=== PATIENT | female | born 1960 | race Hispanic/Latino ===

== ENCOUNTER 2016-07-01 12:19 | Inpatient (IN) | payer OTHER ==
[2016-07-01] MEDS ORDERED: Lidocaine 1% Inj (20ml) INFIL ONE (12:38)
--- NOTE | 2016-07-01 12:43 | C.PDOC ---
History Of Present Illness 56 y/o female sent to the ED from outpatient radiology for large pneumothorax as seen on chest x-ray. Patient reports she has not been feeling well and has been short of breath for approx 3 weeks. She has history of cervical cancer with metastasis to lung. Patient denies fever, cough, falls/injuries, chest pain. Time Seen by Provider: 07/01/16 12:37 Chief Complaint (Nursing): Medical Clearance History Per: Patient History/Exam Limitations: no limitations Onset/Duration Of Symptoms: Days (21), Persistent Current Symptoms Are (Timing): Still Present Severity: Mild Past Medical History Reviewed: Historical Data, Nursing Documentation, Vital Signs Vital Signs: Last Vital Signs Temp 98.6 F 07/07/16 12:00 Pulse 79 07/07/16 13:02 Resp 18 07/07/16 13:02 BP 96/59 L 07/07/16 11:46 Pulse Ox 98 07/07/16 12:00 - Medical History PMH: Depression, Malignancy (metastatic cervical CA) Other Surgeries: Left Subclavian port insertion; 4 rounds of brachytherapy. - Boond Procedures DRAINAGE OF R PLEURAL CAV WITH DRAIN DEV, OPEN APPROACH (07/01/16) Family History: States: No Known Family Hx - Social History Hx Tobacco Use: Yes (light smoker) Hx Alcohol Use: No Hx Substance Use: No - Immunization History Hx Tetanus Toxoid Vaccination: No (unsure) Hx Influenza Vaccination: No Hx Pneumococcal Vaccination: No Review Of Systems Except As Marked, All Systems Reviewed And Found Negative. Constitutional: Positive for: Other ("not feeling well"). Negative for: Fever Cardiovascular: Negative for: Chest Pain, Palpitations Respiratory: Positive for: Shortness of Breath, SOB with Excertion. Negative for: Cough Gastrointestinal: Negative for: Nausea, Vomiting, Abdominal Pain, Diarrhea Physical Exam - Physical Exam Appears: Non-toxic, No Acute Distress, Other (cachectic; comfortable, speaking in full sentences) Skin: Normal Color, Warm, Dry Head: Normacephalic Oral Mucosa: Moist Neck: Normal Chest: Symmetrical, Other (portacath at left upper chest) Cardiovascular: Rhythm Regular Respiratory: Decreased Breath Sounds (right), No Accessory Muscle Use, No Rales , No Rhonchi, No Wheezing Gastrointestinal/Abdominal: Normal Exam, Bowel Sounds, Soft, No Tenderness Extremity: Normal ROM, No Swelling Extremity: Bilateral: Normal Color And Temperature Neurological/Psych: Oriented x3 ED Course And Treatment - Laboratory Results Result Diagrams: 07/07/16 06:15 07/07/16 06:15 ECG: Interpreted By Me, Viewed By Me (NSR 68 bpm, normal axis, no acute ST/T wave changes) ECG Interpretation: Normal O2 Sat by Pulse Oximetry: 98 (ra) Pulse Ox Interpretation: Normal - Other Rad CXR X-Ray: Viewed By Me, Read By Radiologist Interpretation: Accession No. : [id number]. Patient Name / ID : LAURA MURILLO / [id number]. Exam Date : 07/01/2016 11:05:59 ( Approved ). Study Comment : Sex / Age : F / [id number]. Creator : Anthony Gaytan MD. Dictator : Anthony Gaytan MD. Welfare Director : Service Desk Team Lead : Anthony Gaytan MD. Approver2 : Report Date : 07/01/2016 12:14:32. My Comment : . HISTORY: COUGH. COMPARISON: 01/18/2014. TECHNIQUE: Chest PA and lateral. FINDINGS: LUNGS: There is a [id number] right pneumothorax. There is no left pneumothorax. There is no pulmonary infiltrate appreciated. There is opacity at the medial right lung base likely reflecting atelectasis. PLEURA: Right pneumothorax as above. No pleural effusion. CARDIOVASCULAR: Normal heart size. Left central venous infusion port. OSSEOUS STRUCTURES: No significant abnormalities. VISUALIZED UPPER ABDOMEN: Normal. OTHER FINDINGS: None. IMPRESSION: Moderate to large right pneumothorax. These findings were discussed by telephone with Dr. peggy Mendez at 12:10 p.m. on 07/01/2016. The patient is being escorted to the emergency room for further management. Progress Note: Blood work, EKG ordered and reviewed. Patient placed on 100% NRB. Chest tube inserted by surgical garment fitter with me at bedside. Once chest tube attached to suction, patient immeiately began to c/o SOB and POx dropped into 80s. Chest tube pulled back by resident and repeat CXR done, CT in place. Patient once again becomes SOB with attachment to suction. president & founder discused with Dr. Lira, and I spoke with pulm/final assembler Dr. Barger, who will come to evaluate patient at bedside. 6:10pm- Dr. Barger accepts patient for ICU admission due to dyspnea, desaturation when chest tube attached to vacuum. - Physician Consult Information Physician Contacted: Chata Lira Outcome Of Conversation: Discussed patient with Dr. Lira, she agrees that pigtail catheter would be preferable since this is a nontraumatic PTX and patient is not in acute respiratory distress. Will speak with surgery resident. Patient to be admitted under medicine with Dr. Lira on consult. Critical Care Time - Critical Care Note Total Time (in mins): 45 Documented critical care: time excludes all time spent performing seperately billable procedures. Disposition - Disposition Disposition: HOSPITALIZED Disposition Time: 14:28 Condition: STABLE - Clinical Impression Clinical Impression: Cervical cancer, Pneumothorax, Hypoxia - Scribe Statement The provider has reviewed the documentation as recorded by the Scribe (Kasia Stone) Provider Attestation: All medical record entries made by the Scribe were at my direction and personally dictated by me. I have reviewed the chart and agree that the record accurately reflects my personal performance of the history, physical exam, medical decision making, and the department course for this patient. I have also personally directed, reviewed, and agree with the discharge instructions and disposition.
[2016-07-01 14:40] LABS: BASO % 0.5 % (0.0-2.0); EOS # 0.3 K/uL (0.0-0.7); EOS % 3.8 % (0.0-4.0); HEMATOCRIT 41.8 % (34.0-47.0); LYMPH # 1.3 K/uL (1.0-4.3); LYMPH % 15.9 % (20.0-40.0); MEAN CORPUSCULAR HEMOGLOBIN 30.2 pg (27.0-31.0); MEAN CORPUSCULAR HGB CONC 32.5 g/dL (33.0-37.0); MEAN PLATELET VOLUME 8.4 fL (7.2-11.7); MONO # 0.5 K/uL (0.0-0.8); MONO % 6.2 % (0.0-10.0); RED CELL DISTRIBUTION WIDTH 15.8 % (11.5-14.5)
[2016-07-01 14:43] LABS: INR 1.1; MEAN CELL VOLUME 92.9 fL (81.0-99.0); WHITE BLOOD COUNT 8.4 K/uL (4.8-10.8)
[2016-07-01 14:57] LABS: CHLORIDE 100 mmol/L (98-107)
[2016-07-01 14:58] LABS: SODIUM 139 mmol/L (132-148)
[2016-07-01 15:00] LABS: ALB/GLOB RATIO 1.3 (1.0-2.1); AST/SGOT 31 U/L (14-36); BILIRUBIN,TOTAL 0.6 mg/dL (0.2-1.3); CARBON DIOXIDE 24 mmol/L (22-30); GFR AFRICAN-AMERICAN > 60; TOTAL PROTEIN 8.6 g/dL (6.3-8.3)
[2016-07-01 15:01] LABS: ALKALINE PHOSPHATASE 134 U/L (38-126); ALT/SGPT 34 U/L (9-52); BLOOD UREA NITROGEN 22 mg/dL (7-17); CALCIUM 9.8 mg/dl (8.6-10.4); GLUCOSE,RANDOM 110 mg/dL (65-105)
[2016-07-01 15:06] LABS: RBC URINE 10 /hpf (0-3); URINE BACTERIA MANY (<OCC); URINE BILIRUBIN NEGATIVE (NEGATIVE); URINE BLOOD 2+ (NEGATIVE); URINE COLOR Yellow (YELLOW); URINE GLUCOSE (UA) NORMAL (Normal); URINE KETONE NEGATIVE (NEGATIVE); URINE LEUKOCYTE ESTERASE 1+ Leu/uL (Negative); URINE PROTEIN 1+ mg/dL (NEGATIVE); URINE UROBILINOGEN NORMAL mg/dL (0.2-1.0); WBC URINE 22 /hpf (0-5)
[2016-07-01] MEDS ORDERED: Sodium Chloride 0.9% 1,000 ML ONE ×2 (15:23→15:27)
[2016-07-01] MEDS ORDERED: Apap-Butalbital-Caffeine 325-50-40mg Tab PO PRN (15:26)
[2016-07-01] MEDS ORDERED: Morphine 4 MG/ML VIAL ONE (15:27)
--- NOTE | 2016-07-01 15:36 | CP.PCM.HP ---
<Laxmi Davis - Last Filed: 07/01/16 16:40> History of Present Illness - History of Present Illness History of Present Illness: Internal medicine H & P for Hospitalist service- Laxmi Davis, PGY-1 Pt S & E at beside 56 yo F w/PMH sig for cervical CA s/p chemo/radiation with mets to lung currently on chemo-held x 1 mo for dental work admitted for pneumothorax of Right lung. Pt reports that 1 mo ago she went [facility] after high heel related Left hip injury w/diagnosis of L hip vs. pelvis fracture- pt waited 6 hrs in ED, states that prior to ED visit, she did not have cough, but afterwards noted on. Cough is non productive. Admits to SOB, DAVIDSON, chills, orthopnea, daily recurrent migraines, palpitations with exertion, occasional Left hip pain, Right lower midaxillary rib pain, weight loss due to chemo. Denies N/V/F, CP, abdominal pain, constipation, diarrhea, dysuria, uringary frequency, weakness, vision changes, sore throat, congestion, rhinorrhea, sinus congestion. PMH: Cervical cancer s/p Chemo/radiation w/mets to lungs currently on chemo- held x 1 mo due to dental work PSH: dental work, brachy radiation surgery for cervical tumor All: Denies SH: Admits to 5-10 cigarettes/day x 30 yrs, former occasional ETOH use- last drink 3 yrs ago, denies illicit drug use PMD: [facility] onc: [facility]: [facility] [place] on [address] Present on Admission - Present on Admission Any Indicators Present on Admission: No History of DVT/PE: No History of Uncontrolled Diabetes: No Urinary Catheter: No Decubitus Ulcer Present: No Review of Systems - Review of Systems All systems: reviewed and no additional remarkable complaints except - Constitutional Constitutional: Chills, Headache (daily migraines), Weight Loss. absent: Fever , Weakness - EENT Eyes: absent: Blurred Vision, Change in Vision Ears: absent: Dizziness Nose/Mouth/Throat: absent: Nasal Congestion, Sore Throat - Cardiovascular Cardiovascular: Dyspnea on Exertion, Palpitations (with exertion). absent: Chest Pain, Diaphoresis, Leg Edema, Lightheadedness - Respiratory Respiratory: Cough (non productive), Dyspnea on Exertion. absent: Wheezing, Chest Congestion - Gastrointestinal Gastrointestinal: absent: Abdominal Pain, Constipation, Diarrhea, Hematemesis, Hematochezia, Loose Stools, Melena, Nausea, Vomiting - Genitourinary Genitourinary: absent: Difficulty Urinating, Dysuria, Hematuria - Musculoskeletal Musculoskeletal: absent: Neck Pain, Numbness, Tingling - Integumentary Integumentary: absent: Skin Ulcer - Neurological Neurological: Headaches. absent: Dizziness, Tingling, Weakness - Psychiatric Psychiatric: Anxiety Past Patient History - Infectious Disease Hx of Infectious Diseases: None - Past Social History Smoking Status: Light Smoker < 10 Cigarettes Daily - PULMONARY Hx Lung Cancer: Yes - HEMATOLOGICAL/ONCOLOGICAL Hx Cancer: Yes (Cervical) - PSYCHIATRIC Hx Depression: Yes Hx Substance Use: No - SURGICAL HISTORY Other/Comment: Left Subclavian port insertion; 4 rounds of brachytherapy. - ANESTHESIA Hx Anesthesia: Yes Hx Anesthesia Reactions: No Hx Malignant Hyperthermia: No Meds Allergies/Adverse Reactions: Allergies Allergy/AdvReac Type Severity Reaction Status Date / Time No Known Allergies Allergy Verified 07/01/16 12:42 Physical Exam - Constitutional Appears: Non-toxic, No Acute Distress, Cachectic - Head Exam Head Exam: ATRAUMATIC, NORMAL INSPECTION, NORMOCEPHALIC - Eye Exam Eye Exam: EOMI, Normal appearance, PERRL Pupil Exam: NORMAL ACCOMODATION, PERRL - ENT Exam ENT Exam: Mucous Membranes Moist, Normal Exam - Neck Exam Neck exam: Positive for: Full Rom, Normal Inspection. Negative for: Lymphadenopathy, Tenderness - Respiratory Exam Respiratory Exam: Decreased Breath Sounds (over right lung maxwell), NORMAL BREATHING PATTERN. absent: Accessory Muscle Use, Rales, Rhonchi, Wheezes, Respiratory Distress, Stridor - Cardiovascular Exam Cardiovascular Exam: REGULAR RHYTHM, +S1, +S2 - GI/Abdominal Exam GI & Abdominal Exam: Normal Bowel Sounds, Soft. absent: Distended, Firm, Guarding, Hernia, Rebound, Rigid, Tenderness - Extremities Exam Extremities exam: Positive for: normal capillary refill, normal inspection. Negative for: pedal edema, tenderness - Back Exam Back exam: FULL ROM, NORMAL INSPECTION. absent: paraspinal tenderness, tenderness - Neurological Exam Neurological exam: Alert, CN II-XII Intact, Oriented x3 - Psychiatric Exam Psychiatric exam: Normal Affect, Normal Mood - Skin Skin Exam: Dry, Intact, Normal Color, Warm Results - Vital Signs Recent Vital Signs: Last Vital Signs Temp 97.5 F L 07/01/16 12:22 Pulse 69 07/01/16 14:38 Resp 20 07/01/16 14:38 BP 125/72 07/01/16 14:38 Pulse Ox 95 07/01/16 14:38 - Labs Result Diagrams: 07/01/16 14:22 07/01/16 14:22 Labs: Laboratory Results - last 24 hr 07/01/16 07/01/16 14:29 14:43 Urine Color Yellow Urine Clarity Hazy Urine pH 5.0 Ur Specific [place] 1.011 Urine Protein 1+ H Urine Glucose (UA) Normal Urine Ketones Negative Urine Blood 2+ H Urine Nitrate Positive H Urine Bilirubin Negative Urine Urobilinogen Normal Ur Leukocyte Esterase 1+ H Urine WBC (Auto) 22 H Urine RBC (Auto) 10 H Ur Squamous Epith Cells 1 Urine Bacteria Many H Urine HCG, Qual Negative Blood Type A POSITIVE Antibody Screen Negative Assessment & Plan - Assessment and Plan (Free Text) Assessment: Pneumothorax CXR w/findings of Moderate to large right pneumothorax. Surgery consulted-Lira- for pigtail placement, tube mgmt Motrin PRN mild pain Morphine 1mg PRN mod pain Pulm consulted- Charbel FU CXR in AM FU KATELIN Q6H x 3 FU Echo UTI U/A pos for 1+ LE, nitrates, 22 WBCs, 10 RBCs Rocephin Monitor Anxiety Re-start home med: Xanax 0.5mg HS Daily migraine headaches Re-start home med: Fioricet 2-4 tabs daily PRN Nicotine abuse Nicotine patch Cervical cancer s/p chemo/radiation with mets to Lungs currently on chemo- held x 1 mo due to dental work Marinol Supplements FU CT chest/ab/pelvis GI/DVT ppx Pepcid Lovenox SCDs Ambulate Dispo Admit to tele VS Q4H Regular diet Pain mgmt OOBTC, activity ad dave, ambulate DW attending - Date & Time Date: 07/01/16 Time: 15:34 <Anthony Noel - Last Filed: 07/01/16 17:35> Results - Vital Signs Recent Vital Signs: Last Vital Signs Temp 97.5 F L 07/01/16 12:22 Pulse 70 07/01/16 17:23 Resp 20 04/05/17 17:23 BP 114/63 07/01/16 17:23 Pulse Ox 94 L 07/01/16 17:23 - Labs Result Diagrams: 07/01/16 14:22 07/01/16 14:22 Labs: Laboratory Results - last 24 hr 07/01/16 07/01/16 14:29 14:43 Urine Color Yellow Urine Clarity Hazy Urine pH 5.0 Ur Specific [place] 1.011 Urine Protein 1+ H Urine Glucose (UA) Normal Urine Ketones Negative Urine Blood 2+ H Urine Nitrate Positive H Urine Bilirubin Negative Urine Urobilinogen Normal Ur Leukocyte Esterase 1+ H Urine WBC (Auto) 22 H Urine RBC (Auto) 10 H Ur Squamous Epith Cells 1 Urine Bacteria Many H Urine HCG, Qual Negative Blood Type A POSITIVE Antibody Screen Negative Attending/Attestation - Attestation I have personally seen and examined this patient.: Yes I have fully participated in the care of the patient.: Yes I have reviewed all pertinent clinical information: Yes Notes (Text): 07/01/16 17:29 Medical Attending: Patient was seen and examined by me. Agree with the above note by the resident. The patient was seen and examined in the ER - she had just had a pigtail cather placed to relieve the pneumothorax. When we saw her the cather was being adjusted again. As mentioned above there is a history of cervical cancer with spread to the lungs. She also had a recent fall injuring hip as well. Will check serial troponins, repeat CXRAYs, as well as get a 2decho to assess for right heart strain. Also CT of the chest, abdomen and pelvis. Patient asked that no contrast be given Will have to see how the follow up chest XRAYs do. When we examined her she did not have JVD on exam, but considering how large the pneumothorax is will need echo. Also did not have tracheal deviation. She was not tacycardic and the blood pressure was stable as well thank you Anthony Noel
--- NOTE | 2016-07-01 16:25 | RAD ---
HISTORY: S/P CHEST TUBE COMPARISON: No prior. FINDINGS: LUNGS: 2.2 cm nodule at medial right lung base. Consistent with history of known pulmonary neoplasm. Atelectasis at right base. PLEURA: Minimal decrease in extent of right pneumothorax when compared to earlier examination of the same date. New right chest tube extends across the midline towards the left side. Unlikely to reflect tension pneumothorax, status post chest tube insertion. Uncertain significance. No left pneumothorax. CARDIOVASCULAR: Left central venous infusion port. 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 . VISUALIZED UPPER ABDOMEN: Normal. OTHER FINDINGS: None. IMPRESSION: Minimal decrease in extent of right pneumothorax status post insertion of right chest tube. Chest tube crosses the midline towards the left side. Uncertain significance. 2.2 cm nodule at medial right lung base.
[2016-07-01] MEDS ORDERED: Sodium Chloride 0.9% 1,000 ML IV ONE ×2 (17:10→18:49)
[2016-07-01] MEDS: Enoxaparin 30 mg Syringe SC SCH (19:20)
[2016-07-01] MEDS ORDERED: Acetaminophen IV 1,000 MG in Premixed IV 1 EA IV ONE (20:20)
--- NOTE | 2016-07-01 23:55 | CP.PCM.CON ---
History of Present Illness - History of Present Illness History of Present Illness: Gen Surg Consult: Dr Lira 56F w/PMH of cervical cancer s/p chemo/radiation with metastasis to lung. Pt reports she is receiving chemotherapy once a month. Patient was sent over to ED from outpatient radiology after a large right pneumothorax was noted on X-ray. Pt reports that she first experienced chest discomfort about 3 weeks ago. She states she felt a strange sensation in her chest and she noticed her breathing was not the same. However, patient states the pain never got worse so she felt it would gradually go away. Patient currently reports pressure-like sensation in her chest, as well as pain her ribs. PMH: as stated above PSH: excision cervical tumor All: NKDA SH: Former smoker for about ~30yrs Review of Systems - Review of Systems Review of Systems: 12 pt ROS reviewed, unremarkable, except as stated in HPI Past Patient History - Infectious Disease Hx of Infectious Diseases: None - Past Social History Smoking Status: Light Smoker < 10 Cigarettes Daily - PULMONARY Hx Lung Cancer: Yes - HEMATOLOGICAL/ONCOLOGICAL Hx Cancer: Yes (Cervical) - PSYCHIATRIC Hx Depression: Yes Hx Substance Use: No - SURGICAL HISTORY Other/Comment: Left Subclavian port insertion; 4 rounds of brachytherapy. - ANESTHESIA Hx Anesthesia: Yes Hx Anesthesia Reactions: No Hx Malignant Hyperthermia: No Meds Allergies/Adverse Reactions: Allergies Allergy/AdvReac Type Severity Reaction Status Date / Time No Known Allergies Allergy Verified 07/01/16 12:42 - Medications Medications: Current Medications Acetaminophen/Butalbital/Caffeine (Fioricet) 2 tab PO Q12H PRN PRN Reason: Headache Alprazolam (Xanax) 0.5 mg PO HS PRN PRN Reason: Anxiety Dronabinol (Marinol) 2.5 mg PO BID [facility] Last Admin: 07/01/16 19:30 Dose: 2.5 mg Enoxaparin Sodium (Lovenox) 30 mg SC DAILY [facility] Last Admin: 07/01/16 19:20 Dose: 30 mg Famotidine (Pepcid) 20 mg PO BID [facility] Last Admin: 07/01/16 19:20 Dose: 20 mg Ceftriaxone Sodium 1 gm/ (Sodium Chloride) 100 mls @ 100 mls/hr IVPB Q24H [facility] Last Admin: 07/01/16 17:32 Dose: 100 mls/hr Ibuprofen (Motrin Tab) 400 mg PO Q6 PRN PRN Reason: Pain, Mild (1-3) Morphine Sulfate (Morphine) 1 mg IVP Q4 PRN PRN Reason: Pain, moderate (4-7) Nicotine (Nicoderm Cq) 1 patch TD DAILY SOFIA Ondansetron HCl (Zofran Inj) 4 mg IVP Q6 PRN PRN Reason: Nausea/Vomiting Physical Exam - Constitutional Appears: Cachectic, Chronically Ill - Head Exam Head Exam: NORMOCEPHALIC - Eye Exam Eye Exam: Normal appearance - ENT Exam ENT Exam: Mucous Membranes Moist - Respiratory Exam Respiratory Exam: NORMAL BREATHING PATTERN. absent: Accessory Muscle Use - Cardiovascular Exam Cardiovascular Exam: +S1, +S2 - GI/Abdominal Exam GI & Abdominal Exam: Soft. absent: Distended, Firm, Guarding - Neurological Exam Neurological exam: Alert, Oriented x3 - Psychiatric Exam Psychiatric exam: Normal Mood - Skin Skin Exam: Intact, Normal Color, Warm Results - Vital Signs Recent Vital Signs: Last Vital Signs Temp 97.9 F 07/01/16 18:52 Pulse 71 07/01/16 18:50 Resp 30 H 07/01/16 18:50 BP 95/52 L 07/01/16 18:50 Pulse Ox 93 L 07/01/16 18:50 - Labs Result Diagrams: 07/01/16 14:22 07/01/16 14:22 Labs: Laboratory Results - last 24 hr 07/01/16 07/01/16 07/01/16 14:29 14:43 18:49 Total Creatine Kinase 54 CK-MB (Mass) 0.57 Troponin I, Quant < 0.0120 Urine Color Yellow Urine Clarity Hazy Urine pH 5.0 Ur Specific [place] 1.011 Urine Protein 1+ H Urine Glucose (UA) Normal Urine Ketones Negative Urine Blood 2+ H Urine Nitrate Positive H Urine Bilirubin Negative Urine Urobilinogen Normal Ur Leukocyte Esterase 1+ H Urine WBC (Auto) 22 H Urine RBC (Auto) 10 H Ur Squamous Epith Cells 1 Urine Bacteria Many H Urine HCG, Qual Negative Blood Type A POSITIVE Antibody Screen Negative Assessment & Plan - Assessment and Plan (Free Text) Assessment: 56 F w/ right sided pneumothorax -F/u CXR -F/u CT chest -CT to waterseal -Monitor vitals -analgesics -F/u AM labs -D/w Dr. Lira Procedures - Chest Tube Chest Tube Location: Mid-Axillary Right Size of Tube (cm): 20 Chest Tube Procedure: Chlorhexidine Tube Sutured to Skin: Yes Sterile Dressing Applied: Yes Anesthesia: Lidocaine 1% Incision Made With: #11 blade Post Procedure: sutured to skin, sterile dressing applied Ram of Air [place]: Yes Tube Drainage: none Post Procedure CXR?: Yes Patient Tolerated Procedure: Yes Complications: tube needs to be repositioned Progress: Patient kept having desaturation episodes any time chest tube was placed on wall suction. Decision was made to leave chest tube to waterseal. Patient reported feeling better once on waterseal and vital signs stabilized.
[2016-07-02] MEDS: Oxycodone/Acetaminophen 5/325 mg Tab PO PRN ×4 (04:19→20:17)
[2016-07-02 06:45] LABS: BASO % 0.4 % (0.0-2.0); EOS % 0.4 % (0.0-4.0); HEMATOCRIT 36.4 % (34.0-47.0); LYMPH # 1.3 K/uL (1.0-4.3); LYMPH % 12.2 % (20.0-40.0); MEAN CELL VOLUME 92.4 fL (81.0-99.0); MEAN CORPUSCULAR HEMOGLOBIN 30.2 pg (27.0-31.0); MEAN CORPUSCULAR HGB CONC 32.7 g/dL (33.0-37.0); MEAN PLATELET VOLUME 8.5 fL (7.2-11.7); MONO # 0.5 K/uL (0.0-0.8); MONO % 4.8 % (0.0-10.0); NRBC % 0.1 % (0.0-2.0)
[2016-07-02 07:05] LABS: CHLORIDE 104 mmol/L (98-107); SODIUM 137 mmol/L (132-148)
[2016-07-02 07:06] LABS: POTASSIUM 4.5 mmol/L (3.6-5.2)
[2016-07-02 07:07] LABS: GFR AFRICAN-AMERICAN > 60
[2016-07-02 07:08] LABS: ALB/GLOB RATIO 1.2 (1.0-2.1); ALKALINE PHOSPHATASE 113 U/L (38-126); ALT/SGPT 24 U/L (9-52); AST/SGOT 21 U/L (14-36); BILIRUBIN,TOTAL 0.8 mg/dL (0.2-1.3); BLOOD UREA NITROGEN 17 mg/dL (7-17); CARBON DIOXIDE 19 mmol/L (22-30); GLUCOSE,RANDOM 99 mg/dL (65-105); TOTAL PROTEIN 7.5 g/dL (6.3-8.3)
[2016-07-02 07:09] LABS: CALCIUM 8.8 mg/dl (8.6-10.4)
--- NOTE | 2016-07-02 08:28 | CP.CCUPN ---
CCU Subjective - Physician Review Subjective (Free Text): 07/02/16 13:48 Pt seen and examined in no acute distress with no otherwise additional cute events overnight. Patient remains hemodynamically stable. She admits too pain at the site of the chest tube insertion. Patient otherwise denies subjective fevers or chills, headaches, palpitations, paresthesias, shortness of breath, nausea, vomiting or diarrhea at this time. CCU Objective - Vital Signs / Intake & Output Vital Signs (Last 4 hours): Vital Signs Pulse Resp BP Pulse Ox 07/02/16 08:00 58 L 14 96 07/02/16 07:09 51 L 15 123/71 100 07/02/16 07:00 63 15 95 07/02/16 06:31 56 L 15 97 07/02/16 06:09 60 23 130/64 94 L 07/02/16 06:00 55 L 14 95 07/02/16 05:52 52 L 14 95 07/02/16 05:09 54 L 20 126/73 94 L 07/02/16 05:00 53 L 19 126/73 94 L Intake and Output (Last 8hrs): Intake & Output 07/01/16 07/02/16 07/02/16 22:59 06:59 14:59 Intake Total 1310 0 Output Total 550 400 Balance 760 -400 Weight 99 lb Intake: Intake, IV Amount 1100 Left Antecubital 1100 Oral 210 0 Output: Chest Tube Drainage 0 0 Right Upper Mid-Axillary 0 0 Chest Urine 550 400 Urine, Voided 550 400 Stool 0 0 - Physical Exam Physical Exam Limitations: Positive for: Other (cachectic) Head: Positive for: Atraumatic, Normocephalic Pupils: Positive for: PERRL Extroacular Muscles: Positive for: EOMI Conjunctiva: Positive for: Normal Mouth: Positive for: Moist Mucous Membranes Neck: Positive for: Normal Range of Motion Respiratory/Chest: Positive for: Good Air Exchange, Other (chest tube in place- connected to waterseal) Cardiovascular: Positive for: Normal S1, S2 Abdomen: Negative for: Tenderness, Distention Upper Extremity: Positive for: Normal Inspection Lower Extremity: Positive for: Normal Inspection Neurological: Positive for: CN II-XII Intact, Speech Normal Skin: Positive for: Warm, Dry Psychiatric: Positive for: Alert, Oriented x 3, Normal Insight, Normal Concentration - Medications Active Medications: Active Medications Generic Name Dose Route Start Last Admin Trade Name Freq PRN Reason Stop Dose Admin Acetaminophen/Butalbital/Caffeine 2 tab 07/01/16 15:26 07/02/16 04:38 Fioricet PO 2 tab Q12H PRN Administration Headache Alprazolam 0.5 mg 07/01/16 15:26 Xanax PO HS PRN Anxiety Dronabinol 2.5 mg 07/01/16 18:00 07/01/16 19:30 Marinol PO 2.5 mg BID [facility] Administration Enoxaparin Sodium 30 mg 07/01/16 16:30 07/01/16 19:20 Lovenox SC 30 mg DAILY [facility] Administration Famotidine 20 mg 07/01/16 18:00 07/01/16 19:20 Pepcid PO 20 mg BID [facility] Administration Ceftriaxone Sodium 1 gm/ 100 mls @ 100 mls/hr 07/01/16 17:30 07/01/16 17:32 Sodium Chloride IVPB 100 mls/hr Q24H SO[facility] Administration Ibuprofen 400 mg 07/01/16 15:29 Motrin Tab PO Q6 PRN Pain, Mild (1-3) Morphine Sulfate 1 mg 07/01/16 16:28 07/02/16 00:00 Morphine IVP 1 mg Q4 PRN Administration Pain, moderate (4-7) Nicotine 1 patch 07/02/16 10:00 Nicoderm Cq TD DAILY [facility] Ondansetron HCl 4 mg 07/01/16 15:29 Zofran Inj IVP Q6 PRN Nausea/Vomiting Oxycodone/Acetaminophen 1 tab 07/02/16 01:45 07/02/16 04:19 Percocet 5/325 Mg Tab PO 07/05/16 01:46 1 tab Q4 PRN Administration - Patient Studies Lab Studies: Lab Studies 07/02/16 07/01/16 07/01/16 Range/Units 06:38 18:49 14:43 WBC 11.0 H (4.8-10.8) K/uL RBC 3.94 (3.80-5.20) Mil/uL Hgb 11.9 (11.0-16.0) g/dL Hct 36.4 (34.0-47.0) % MCV 92.4 (81.0-99.0) fL MCH 30.2 (27.0-31.0) pg MCHC 32.7 L (33.0-37.0) g/dL RDW 16.0 H (11.5-14.5) % Plt Count 304 (130-400) K/uL MPV 8.5 (7.2-11.7) fL Neut % (Auto) 82.2 H (50.0-75.0) % Lymph % (Auto) 12.2 L (20.0-40.0) % [place] % (Auto) 4.8 (0.0-10.0) % Eos % (Auto) 0.4 (0.0-4.0) % Baso % (Auto) 0.4 (0.0-2.0) % Neut # 9.1 H (1.8-7.0) K/uL Lymph # 1.3 (1.0-4.3) K/uL [place] # 0.5 (0.0-0.8) K/uL Eos # 0.0 (0.0-0.7) K/uL Baso # 0.0 (0.0-0.2) K/uL Sodium 137 (132-148) mmol/L Potassium 4.5 (3.6-5.2) mmol/L Chloride 104 (98-107) mmol/L Carbon Dioxide 19 L (22-30) mmol/L Anion Gap 19 (10-20) BUN 17 (7-17) mg/dL Creatinine 0.8 (0.7-1.2) MG/DL Est GFR ( Amer) > 60 Est GFR (Non-Af Amer) > 60 Random Glucose 99 (65-105) mg/dL Calcium 8.8 (8.6-10.4) mg/dl Total Bilirubin 0.8 (0.2-1.3) mg/dL AST 21 (14-36) U/L ALT 24 (9-52) U/L Alkaline Phosphatase 113 (38-126) U/L Total Creatine Kinase 54 (30-135) U/L CK-MB (Mass) 0.57 (0.0-3.38) ng/mL Troponin I, Quant < 0.0120 (0.00-0.120) ng/mL Total Protein 7.5 (6.3-8.3) g/dL Albumin 4.1 (3.5-5.0) g/dL Globulin 3.3 (2.2-3.9) gm/dL Albumin/Globulin Ratio 1.2 (1.0-2.1) Urine Color Yellow (YELLOW) Urine Clarity Hazy (Clear) Urine pH 5.0 (5.0-8.0) Ur Specific [place] 1.011 (1.003-1.030) Urine Protein 1+ H (NEGATIVE) mg/dL Urine Glucose (UA) Normal (Normal) mg/dL Urine Ketones Negative (NEGATIVE) mg/dL Urine Blood 2+ H (NEGATIVE) Urine Nitrate Positive H (NEGATIVE) Urine Bilirubin Negative (NEGATIVE) Urine Urobilinogen Normal (0.2-1.0) mg/dL Ur Leukocyte Esterase 1+ H (Negative) [place]/uL Urine WBC (Auto) 22 H (0-5) /hpf Urine RBC (Auto) 10 H (0-3) /hpf Ur Squamous Epith Cells 1 (0-5) /hpf Urine Bacteria Many H (<OCC) Urine HCG, Qual Negative (NEGATIVE) Blood Type Antibody Screen 07/01/16 Range/Units 14:29 WBC (4.8-10.8) K/uL RBC (3.80-5.20) Mil/uL Hgb (11.0-16.0) g/dL Hct (34.0-47.0) % MCV (81.0-99.0) fL MCH (27.0-31.0) pg MCHC (33.0-37.0) g/dL RDW (11.5-14.5) % Plt Count (130-400) K/uL MPV (7.2-11.7) fL Neut % (Auto) (50.0-75.0) % Lymph % (Auto) (20.0-40.0) % [place] % (Auto) (0.0-10.0) % Eos % (Auto) (0.0-4.0) % Baso % (Auto) (0.0-2.0) % Neut # (1.8-7.0) K/uL Lymph # (1.0-4.3) K/uL [place] # (0.0-0.8) K/uL Eos # (0.0-0.7) K/uL Baso # (0.0-0.2) K/uL Sodium (132-148) mmol/L Potassium (3.6-5.2) mmol/L Chloride (98-107) mmol/L Carbon Dioxide (22-30) mmol/L Anion Gap (10-20) BUN (7-17) mg/dL Creatinine (0.7-1.2) MG/DL Est GFR ( Amer) Est GFR (Non-Af Amer) Random Glucose (65-105) mg/dL Calcium (8.6-10.4) mg/dl Total Bilirubin (0.2-1.3) mg/dL AST (14-36) U/L ALT (9-52) U/L Alkaline Phosphatase (38-126) U/L Total Creatine Kinase (30-135) U/L CK-MB (Mass) (0.0-3.38) ng/mL Troponin I, Quant (0.00-0.120) ng/mL Total Protein (6.3-8.3) g/dL Albumin (3.5-5.0) g/dL Globulin (2.2-3.9) gm/dL Albumin/Globulin Ratio (1.0-2.1) Urine Color (YELLOW) Urine Clarity (Clear) Urine pH (5.0-8.0) Ur Specific [place] (1.003-1.030) Urine Protein (NEGATIVE) mg/dL Urine Glucose (UA) (Normal) mg/dL Urine Ketones (NEGATIVE) mg/dL Urine Blood (NEGATIVE) Urine Nitrate (NEGATIVE) Urine Bilirubin (NEGATIVE) Urine Urobilinogen (0.2-1.0) mg/dL Ur Leukocyte Esterase (Negative) [place]/uL Urine WBC (Auto) (0-5) /hpf Urine RBC (Auto) (0-3) /hpf Ur Squamous Epith Cells (0-5) /hpf Urine Bacteria (<OCC) Urine HCG, Qual (NEGATIVE) Blood Type A POSITIVE Antibody Screen Negative Laboratory Results - last 24 hr 07/01/16 07/01/16 07/01/16 14:29 14:43 18:49 WBC RBC Hgb Hct MCV MCH MCHC RDW Plt Count MPV Neut % (Auto) Lymph % (Auto) [place] % (Auto) Eos % (Auto) Baso % (Auto) Neut # Lymph # [place] # Eos # Baso # Sodium Potassium Chloride Carbon Dioxide Anion Gap BUN Creatinine Est GFR ( Amer) Est GFR (Non-Af Amer) Random Glucose Calcium Total Bilirubin AST ALT Alkaline Phosphatase Total Creatine Kinase 54 CK-MB (Mass) 0.57 Troponin I, Quant < 0.0120 Total Protein Albumin Globulin Albumin/Globulin Ratio Urine Color Yellow Urine Clarity Hazy Urine pH 5.0 Ur Specific [place] 1.011 Urine Protein 1+ H Urine Glucose (UA) Normal Urine Ketones Negative Urine Blood 2+ H Urine Nitrate Positive H Urine Bilirubin Negative Urine Urobilinogen Normal Ur Leukocyte Esterase 1+ H Urine WBC (Auto) 22 H Urine RBC (Auto) 10 H Ur Squamous Epith Cells 1 Urine Bacteria Many H Urine HCG, Qual Negative Blood Type A POSITIVE Antibody Screen Negative 07/02/16 06:38 WBC 11.0 H RBC 3.94 Hgb 11.9 Hct 36.4 MCV 92.4 MCH 30.2 MCHC 32.7 L RDW 16.0 H Plt Count 304 MPV 8.5 Neut % (Auto) 82.2 H Lymph % (Auto) 12.2 L [place] % (Auto) 4.8 Eos % (Auto) 0.4 Baso % (Auto) 0.4 Neut # 9.1 H Lymph # 1.3 [place] # 0.5 Eos # 0.0 Baso # 0.0 Sodium 137 Potassium 4.5 Chloride 104 Carbon Dioxide 19 L Anion Gap 19 BUN 17 Creatinine 0.8 Est GFR ( Amer) > 60 Est GFR (Non-Af Amer) > 60 Random Glucose 99 Calcium 8.8 Total Bilirubin 0.8 AST 21 ALT 24 Alkaline Phosphatase 113 Total Creatine Kinase CK-MB (Mass) Troponin I, Quant Total Protein 7.5 Albumin 4.1 Globulin 3.3 Albumin/Globulin Ratio 1.2 Urine Color Urine Clarity Urine pH Ur Specific [place] Urine Protein Urine Glucose (UA) Urine Ketones Urine Blood Urine Nitrate Urine Bilirubin Urine Urobilinogen Ur Leukocyte Esterase Urine WBC (Auto) Urine RBC (Auto) Ur Squamous Epith Cells Urine Bacteria Urine HCG, Qual Blood Type Antibody Screen Review of Systems - Review of Systems Review of Systems: see subjective Critical Care Progress Note - Nutrition Nutrition: Nutrition Category Date Time Status Regular Diet [DIET] Diets 07/01/16 Dinner Active Assessment/Plan - Assessment and Plan (Free Text) Assessment: 48 year old female with PMHX significant to cervical cancer with mets to lungs presents for critical care monitoring after discovery of pneumothorax on imaging. Patient s/p chest tube insertion 07/01/16. Plan: Neuro: aao x3 in nad Xanax- anti anxiety Cardio: normotensive at this time Cont to monitor F/U Echo KATELIN 1-2 negative Pulm: Chest Tube in place to waterseal. Earlier attempts to turn on suction resulted in hemodynamic instability and thus kept on waterseal. CXR- noted improvement in lung this AM s/p chest tube placement Surgery ( Dr. Lira) on board Incentive spirometry GI: Dronabinol for anti emetic effects; may also stimulate appetite Zofran Regular diet HemeOnc: Cervical cancer with lung mets Dronabinol Pain control management Nephro/: Monitor ins and outs GFR WNL ID: [id number] on Rocephin Prophylaxis: GI: pepcid DVT: SCDs, Lovenox
--- NOTE | 2016-07-02 10:25 | RAD ---
HISTORY: chest tube adjustment COMPARISON: 07/01/2016 FINDINGS: LUNGS: Persistent moderate right pneumothorax. Chest tubes have been repositioned without significant change in pneumothorax size. 2.2 centimeter nodule noted at the medial right lung base consistent with known history of pulmonary neoplasm. Chronic interstitial lung markings. Left chest wall port stable position. PLEURA: As above. CARDIOVASCULAR: Normal. OSSEOUS STRUCTURES: Stable sclerotic focus in the proximal right humerus. VISUALIZED UPPER ABDOMEN: Grossly preserved. OTHER FINDINGS: None. IMPRESSION: No significant interval change in moderate right pneumothorax. Persistent pulmonary mass in the medial right lower lung zone.
[2016-07-02] MEDS: Enoxaparin 30 mg Syringe SC SCH (10:29)
--- NOTE | 2016-07-02 10:42 | RAD ---
PROCEDURE: CHEST RADIOGRAPH, 1 VIEW HISTORY: S/P CHEST TUBE PTX COMPARISON: 07/01/2016 FINDINGS: LUNGS: Interval improvement with small right apical pneumothorax. Confluent opacification in the right mid and lower lung zone with known mass in the medial right lower lung zone. Diffuse increased interstitial lung markings. Patchy bibasilar airspace markings. Right chest tube with tip projecting to the right lung apex. Left chest wall port stable position. PLEURA: As above. CARDIOVASCULAR: Normal. OSSEOUS STRUCTURES: Stable sclerotic focus in the proximal right humerus. VISUALIZED UPPER ABDOMEN: Normal. OTHER FINDINGS: None. IMPRESSION: Interval improvement with small right apical pneumothorax. Confluent opacification in the right mid and lower lung zone with known mass in the medial right lower lung zone. Diffuse increased interstitial lung markings. Patchy bibasilar airspace markings. Right chest tube with tip projecting to the right lung apex. Left chest wall port stable position.
--- NOTE | 2016-07-02 11:55 | RAD ---
HISTORY: Pneumothorax eval COMPARISON: 07/02/2016 FINDINGS: LUNGS: Persistent tiny right apical pneumothorax with right chest tube in place. Persistent confluent opacities and or masses in the right midlung zone and medial right lower lung zone. Bibasilar breast and nipple shadows. Chronic interstitial lung markings. Left chest wall port stable position. PLEURA: No significant pleural effusion identified, no pneumothorax apparent. CARDIOVASCULAR: Normal. OSSEOUS STRUCTURES: Sclerotic density in the proximal right humerus. Multiple left rib fracture deformities. VISUALIZED UPPER ABDOMEN: Normal. OTHER FINDINGS: None. IMPRESSION: Persistent tiny right apical pneumothorax with right chest tube in place. Persistent confluent opacities and or masses in the right midlung zone and medial right lower lung zone. Bibasilar breast and nipple shadows. Chronic interstitial lung markings. Left chest wall port stable position.
--- NOTE | 2016-07-02 12:06 | CP.PCM.PN ---
Subjective - Date & Time of Evaluation Date of Evaluation: 07/02/16 Time of Evaluation: 09:40 - Subjective Subjective: Gen Surg: Dr. Lira Patient seen and examined. Reports feeling better this morning. Denies chest pain, palpitations, SOB. NAEO. Review of vitals is normal Objective - Vital Signs/Intake and Output Vital Signs (last 24 hours): Temp Pulse Resp BP Pulse Ox 98.4 F 58 L 20 130/52 L 98 07/02/16 12:00 07/02/16 12:00 07/02/16 12:00 07/02/16 12:00 07/02/16 12:00 Intake and Output: 07/02/16 07/02/16 06:59 18:59 Intake Total 1310 270 Output Total 950 400 Balance 360 -130 - Medications Medications: Current Medications Acetaminophen/Butalbital/Caffeine (Fioricet) 2 tab PO Q12H PRN PRN Reason: Headache Last Admin: 07/02/16 04:38 Dose: 2 tab Alprazolam (Xanax) 0.5 mg PO HS PRN PRN Reason: Anxiety Dronabinol (Marinol) 2.5 mg PO BID [facility] Last Admin: 07/02/16 10:28 Dose: 2.5 mg Enoxaparin Sodium (Lovenox) 30 mg SC DAILY [facility] Last Admin: 07/02/16 10:29 Dose: 30 mg Famotidine (Pepcid) 20 mg PO BID [facility] Last Admin: 07/02/16 10:28 Dose: 20 mg Ceftriaxone Sodium 1 gm/ (Sodium Chloride) 100 mls @ 100 mls/hr IVPB Q24H [facility] Last Admin: 07/01/16 17:32 Dose: 100 mls/hr Ibuprofen (Motrin Tab) 400 mg PO Q6 PRN PRN Reason: Pain, Mild (1-3) Morphine Sulfate (Morphine) 1 mg IVP Q4 PRN PRN Reason: Pain, moderate (4-7) Last Admin: 07/02/16 11:48 Dose: 1 mg Nicotine (Nicoderm Cq) 1 patch TD DAILY [facility] Last Admin: 07/02/16 10:28 Dose: 1 patch Ondansetron HCl (Zofran Inj) 4 mg IVP Q6 PRN PRN Reason: Nausea/Vomiting Oxycodone/Acetaminophen (Percocet 5/325 Mg Tab) 1 tab PO Q4 PRN Stop: 07/05/16 01:46 Last Admin: 07/02/16 08:43 Dose: 1 tab Pneumococcal Polyvalent Vaccine (Pneumovax 23 Vaccine) 0.5 ml IM .ONCE ONE Stop: 07/04/16 10:01 - Labs Labs: 07/02/16 06:38 07/02/16 06:38 PT 12.2 SECONDS (9.7-12.2) 07/01/16 14:22 INR 1.1 07/01/16 14:22 APTT 32 SECONDS (21-34) 07/01/16 14:22 - Constitutional Appears: No Acute Distress, Cachectic, Chronically Ill - Head Exam Head Exam: NORMOCEPHALIC - Eye Exam Eye Exam: Normal appearance - ENT Exam ENT Exam: Mucous Membranes Moist - Respiratory Exam Respiratory Exam: NORMAL BREATHING PATTERN. absent: Accessory Muscle Use - Cardiovascular Exam Cardiovascular Exam: +S1, +S2. absent: Tachycardia - GI/Abdominal Exam GI & Abdominal Exam: Soft - Neurological Exam Neurological Exam: Alert, Awake, Oriented x3 - Psychiatric Exam Psychiatric exam: Normal Mood - Skin Skin Exam: Dry, Intact, Warm Assessment and Plan - Assessment and Plan (Free Text) Assessment: 56F w/ right pneumothorax s/p right chest tube insertion POD1 -CXR: Interval improvement w/ small right apical pneumothorax. -CT to waterseal -F/u CXR in AM -Monitor vitals -Medical management as per ICU team -D/w Dr. Lira
--- NOTE | 2016-07-02 13:06 | CT ---
CT chest, abdomen, and pelvis without IV contrast Indication: Pneumothorax in the setting of cervical cancer Technique: Contiguous axial images of the chest, abdomen, and pelvis without oral or IV contrast. Coronal and Sagittal reformats generated and reviewed. This CT exam was performed using 1 or more of the falling dose reduction techniques: Automated exposure control, adjustment of the MAA and/or kV according to patient size, and/or use of iterative reconstruction technique. Radiation dose: Total exam DLP = 305.75 MGy-cm. Comparison: Chest x-ray performed 07/01/16 Findings: Visualized portions of the inferior thyroid gland appear unremarkable. The unenhanced mediastinal and hilar vascular structures appear grossly unremarkable. The heart appears within normal limits of size. No significant pericardial effusion. Calcified peritracheal, subcarinal, and right hilar lymph nodes. Sub cm prevascular and subcarinal lymph nodes, nonspecific. Extensive subcutaneous emphysema involving the right chest wall both anterior, mid, and posteriorly. Right-sided chest tube. Small right-sided pneumothorax. No pleural effusion. Thickening of the minor fissure. There are multiple thin-walled cavities within the right upper lobe. Thin wall cavity noted within the lingula. Thin-walled cavities are evident within the left upper and lower lobes including the lingula. Opacification/consolidation involving the posterior segment of the right upper lobe. Subsegmental atelectasis within the posterior basal segment of the right lower lobe. Patchy pleural based opacities at the right lung base which are nodular in appearance and may represent pulmonary nodules. An additional nodular opacities noted within the left lower lobe (series 4, image 96) measuring approximately 1.1 cm. 1 cm nodule evident within the lingula. 7 mm nodule within the posterior segment of the left upper lobe. Paucity of intra-abdominal intrapelvic fat limits evaluation. Punctate splenic calcification, likely granuloma. Nonobstructing right midpole renal calculus measuring approximately 2 mm. Within the right lower pole kidney additional 1 mm nonobstructing calculus. The right kidney is diminutive as compared to the left. No hydronephrosis. The noncontrast liver, pancreas, adrenal glands, and gallbladder appear unremarkable. The stomach is nondistended. Lack of oral contrast limits evaluation for bowel pathology. The bowel loops appear within normal limits of caliber without evidence of intestinal obstruction. There is no definite free air. No secondary signs of acute appendicitis. Cystic mass to the right of midline within the pelvis, indeterminate. Considerations include an matted knee troches due to obstructing cervical lesion or ovarian neoplasm. Small pelvic free fluid. No definite free air. The urinary bladder appears unremarkable. Irregular sclerotic bony lesion involving the right proximal humerus, possibly bone infarction. Vague sclerosis involving L3 vertebral body, indeterminate. Faint 4 mm sclerotic focus within the right ischium. 3 mm sclerotic focus within the left ischium. Hazy density within the mesenteric fat. Subcutaneous emphysema within the soft tissues of the right flank and right rectus abdominis muscles. Impression: Right-sided pneumothorax. Extensive subcutaneous emphysema involving the right chest wall. Right-sided chest tube. Multiple pulmonary nodules and cavitary lesions consistent with metastatic disease this patient with history of cervical carcinoma and metastases. Calcified mediastinal lymph nodes. Cystic mass within the pelvis, right of midline. Considerations include hematocrit full bolus due to obstructing cervical lesion or ovarian neoplasm. Nonobstructing right renal calculi. No hydronephrosis bilaterally. The right kidney is diminutive as compared to the left. Diverticulosis without CT evidence of acute diverticulitis. Mild L2 compression fracture deformity. Vague sclerosis involving L3 vertebral body, indeterminate. Faint 4 mm sclerotic focus within the right ischium. 3 mm sclerotic focus within the left ischium. Irregular sclerotic bony lesion involving the right proximal humerus, possibly bone infarction. Additional incidental findings as above. Preliminary impression was provided by virtual radiologic.
--- NOTE | 2016-07-02 13:16 | CP.PCM.CON ---
History of Present Illness - History of Present Illness History of Present Illness: 56 y/o female with pmhx of cervical cancer with new metastasis to lung 6 months ago presents from outpatient radiology for right pneumothorax. She was diagnosed with cervical cancer 3 years ago treated with chemo/radiation/ brachytherapy. She was in remission until 1.5 years ago when found to have L3 bone metastasis. Lung metastasis was found 6 months ago by oncologist. Currently on chemotherapy. No hx of radiation to chest wall. Pulmonology was consulted for pneumothorax. She reports shortness of breath for last one month without cough, chest pain, dizziness, falls, or syncope. Furthermore, complains of dyspnea on exertion, palpitations on exertion, chills, orthopnea, and weight loss associated with chemotherapy. She denies any history of pneumothorax or COPD diagnosis. She is a 30 year smoker of between 1.5 packs/day and 5-10 cigarettes per day. She is a current smoker and is trying to cut down but does not want to quit. Pmhx: cervical cancer diagnosed 3 years ago w/ mets newly found 6mo previously. Pshx: brachytherapy to cervix, dental work 1 week ago Sshx: smokes 5-10 cigarettes currently previously 1.5 pack/ day for 30 years, no alcohol use in last 3 years, no drugs PMD: Dr. Underwood Oncologist: Dr. Penny ([place]) Review of Systems - Constitutional Constitutional: Weight Loss - EENT Eyes: absent: Change in Vision, Diplopia Ears: absent: Decreased Hearing, Ear Pain - Cardiovascular Cardiovascular: Dyspnea on Exertion, Orthopnea. absent: Chest Pain, Chest Pain with Activity - Respiratory Respiratory: Dyspnea, Dyspnea on Exertion - Gastrointestinal Gastrointestinal: absent: Abdominal Pain, Constipation, Diarrhea - Genitourinary Genitourinary: absent: Difficulty Urinating, Urinary Incontinence, Urinary Frequency - Neurological Neurological: absent: Dizziness, Headaches - Endocrine Endocrine: absent: Flushing, Heat Intolorance, Palpitations Past Patient History - Infectious Disease Hx of Infectious Diseases: None - Past Medical History & Family History Past Medical History?: Yes - Past Social History Smoking Status: Light Smoker < 10 Cigarettes Daily - PULMONARY Hx Lung Cancer: Yes - HEMATOLOGICAL/ONCOLOGICAL Hx Cancer: Yes (Cervical) - MUSCULOSKELETAL/RHEUMATOLOGICAL Hx Falls: Yes - GENITOURINARY/GYNECOLOGICAL Hx Cervical Cancer: Yes - PSYCHIATRIC Hx Depression: Yes Hx Substance Use: No - SURGICAL HISTORY Other/Comment: Left Subclavian port insertion; 4 rounds of brachytherapy. - ANESTHESIA Hx Anesthesia: Yes Hx Anesthesia Reactions: No Hx Malignant Hyperthermia: No Meds Allergies/Adverse Reactions: Allergies Allergy/AdvReac Type Severity Reaction Status Date / Time No Known Allergies Allergy Verified 07/01/16 12:42 - Medications Medications: Current Medications Acetaminophen/Butalbital/Caffeine (Fioricet) 2 tab PO Q12H PRN PRN Reason: Headache Last Admin: 07/02/16 04:38 Dose: 2 tab Alprazolam (Xanax) 0.5 mg PO HS PRN PRN Reason: Anxiety Dronabinol (Marinol) 2.5 mg PO BID [facility] Last Admin: 07/02/16 10:28 Dose: 2.5 mg Enoxaparin Sodium (Lovenox) 30 mg SC DAILY [facility] Last Admin: 07/02/16 10:29 Dose: 30 mg Famotidine (Pepcid) 20 mg PO BID [facility] Last Admin: 07/02/16 10:28 Dose: 20 mg Ceftriaxone Sodium 1 gm/ (Sodium Chloride) 100 mls @ 100 mls/hr IVPB Q24H [facility] Last Admin: 07/01/16 17:32 Dose: 100 mls/hr Ibuprofen (Motrin Tab) 400 mg PO Q6 PRN PRN Reason: Pain, Mild (1-3) Morphine Sulfate (Morphine) 1 mg IVP Q4 PRN PRN Reason: Pain, moderate (4-7) Last Admin: 07/02/16 11:48 Dose: 1 mg Nicotine (Nicoderm Cq) 1 patch TD DAILY [facility] Last Admin: 07/02/16 10:28 Dose: 1 patch Ondansetron HCl (Zofran Inj) 4 mg IVP Q6 PRN PRN Reason: Nausea/Vomiting Oxycodone/Acetaminophen (Percocet 5/325 Mg Tab) 1 tab PO Q4 PRN Stop: 07/05/16 01:46 Last Admin: 07/02/16 08:43 Dose: 1 tab Pneumococcal Polyvalent Vaccine (Pneumovax 23 Vaccine) 0.5 ml IM .ONCE ONE Stop: 07/04/16 10:01 Physical Exam - Constitutional Appears: Non-toxic, No Acute Distress - Head Exam Head Exam: NORMOCEPHALIC - Eye Exam Eye Exam: Normal appearance, PERRL Pupil Exam: NORMAL ACCOMODATION, PERRL - ENT Exam ENT Exam: Mucous Membranes Moist - Neck Exam Neck exam: Positive for: Normal Inspection. Negative for: Tenderness, Thyromegaly - Respiratory Exam Respiratory Exam: Clear to Auscultation Bilateral, NORMAL BREATHING PATTERN. absent: Rales, Rhonchi, Wheezes, Stridor - Cardiovascular Exam Cardiovascular Exam: REGULAR RHYTHM, +S1, +S2. absent: Diastolic murmur, Gallop , Systolic Murmur - GI/Abdominal Exam GI & Abdominal Exam: Normal Bowel Sounds, Soft. absent: Tenderness - Back Exam Back exam: NORMAL INSPECTION - Neurological Exam Neurological exam: Alert, Oriented x3 - Psychiatric Exam Psychiatric exam: Normal Affect, Normal Mood - Skin Skin Exam: Dry, Intact, Normal Color, Warm Results - Vital Signs Recent Vital Signs: Last Vital Signs Temp 98.4 F 07/02/16 12:00 Pulse 58 L 07/02/16 12:00 Resp 20 07/02/16 12:00 BP 130/52 L 07/02/16 12:00 Pulse Ox 98 07/02/16 12:00 - Labs Result Diagrams: 07/02/16 06:38 07/02/16 06:38 Labs: Laboratory Results - last 24 hr 07/01/16 07/01/16 07/01/16 14:29 14:43 18:49 WBC RBC Hgb Hct MCV MCH MCHC RDW Plt Count MPV Neut % (Auto) Lymph % (Auto) Treasure % (Auto) Eos % (Auto) Baso % (Auto) Neut # Lymph # Treasure # Eos # Baso # Sodium Potassium Chloride Carbon Dioxide Anion Gap BUN Creatinine Est GFR ( Amer) Est GFR (Non-Af Amer) Random Glucose Calcium Total Bilirubin AST ALT Alkaline Phosphatase Total Creatine Kinase 54 CK-MB (Mass) 0.57 Troponin I, Quant < 0.0120 Total Protein Albumin Globulin Albumin/Globulin Ratio Urine Color Yellow Urine Clarity Hazy Urine pH 5.0 Ur Specific [place] 1.011 Urine Protein 1+ H Urine Glucose (UA) Normal Urine Ketones Negative Urine Blood 2+ H Urine Nitrate Positive H Urine Bilirubin Negative Urine Urobilinogen Normal Ur Leukocyte Esterase 1+ H Urine WBC (Auto) 22 H Urine RBC (Auto) 10 H Ur Squamous Epith Cells 1 Urine Bacteria Many H Urine HCG, Qual Negative Blood Type A POSITIVE Antibody Screen Negative 07/02/16 07/02/16 05:00 06:38 WBC 11.0 H RBC 3.94 Hgb 11.9 Hct 36.4 MCV 92.4 MCH 30.2 MCHC 32.7 L RDW 16.0 H Plt Count 304 MPV 8.5 Neut % (Auto) 82.2 H Lymph % (Auto) 12.2 L Treasure % (Auto) 4.8 Eos % (Auto) 0.4 Baso % (Auto) 0.4 Neut # 9.1 H Lymph # 1.3 Treasure # 0.5 Eos # 0.0 Baso # 0.0 Sodium 137 Potassium 4.5 Chloride 104 Carbon Dioxide 19 L Anion Gap 19 BUN 17 Creatinine 0.8 Est GFR ( Amer) > 60 Est GFR (Non-Af Amer) > 60 Random Glucose 99 Calcium 8.8 Total Bilirubin 0.8 AST 21 ALT 24 Alkaline Phosphatase 113 Total Creatine Kinase 62 CK-MB (Mass) 0.82 Troponin I, Quant < 0.0120 Total Protein 7.5 Albumin 4.1 Globulin 3.3 Albumin/Globulin Ratio 1.2 Urine Color Urine Clarity Urine pH Ur Specific [place] Urine Protein Urine Glucose (UA) Urine Ketones Urine Blood Urine Nitrate Urine Bilirubin Urine Urobilinogen Ur Leukocyte Esterase Urine WBC (Auto) Urine RBC (Auto) Ur Squamous Epith Cells Urine Bacteria Urine HCG, Qual Blood Type Antibody Screen Assessment & Plan - Assessment and Plan (Free Text) Assessment: Spontaneous pneumothorax Plan: Chest tube on waterseal since 07/01 evening due to desaturation on wall suction. Pneumothorax is resolved on waterseal. f/u AM CXR prior to chest tube removal per surgery. Spontaneous pneumothorax possibly due to rupture of small bulae. CXR 07/02/16 shows interval improvement with small right apical pneumothorax. Diffuse increased interstitial lung markings. Patchy bibasilar airspace markings. Right chest tube with tip projecting to the right lung apex. Left chest wall port stable position. CT 07/01/16 Right-sided pneumothorax. Extensive subcutaneous emphysema involving the right chest wall. Right-sided chest tube. Multiple pulmonary nodules and cavitary lesions consistent with metastatic disease this patient with history of cervical carcinoma and metastases. Calcified mediastinal lymph nodes.
--- NOTE | 2016-07-02 13:39 | CP.PCM.PN ---
Subjective - Date & Time of Evaluation Date of Evaluation: 07/02/16 Time of Evaluation: 13:00 - Subjective Subjective: Patient was seen and examined by me - she explains her breathing is easier. She still has the chest tube, HR and BP have been stable overnight. A repeat CXRAY and CT of the chest shows that there has been re-expansion. As mentioned before there is a known history of metastatic cervical cancer to the lung. Patient is s/p right chest tube insertion POD1 for pneumothorax. As mentioned before there is a known history of metastitc cervical cancer to the lung. The most recent imaging showing improvement w/ small right apical pneumothorax. Objective - Vital Signs/Intake and Output Vital Signs (last 24 hours): Temp Pulse Resp BP Pulse Ox 98.4 F 58 L 20 130/52 L 98 07/02/16 12:00 07/02/16 12:00 07/02/16 12:00 07/02/16 12:00 07/02/16 12:00 Intake and Output: 07/02/16 07/02/16 06:59 18:59 Intake Total 1310 270 Output Total 950 400 Balance 360 -130 - Medications Medications: Current Medications Acetaminophen/Butalbital/Caffeine (Fioricet) 2 tab PO Q12H PRN PRN Reason: Headache Last Admin: 07/02/16 04:38 Dose: 2 tab Alprazolam (Xanax) 0.5 mg PO HS PRN PRN Reason: Anxiety Dronabinol (Marinol) 2.5 mg PO BID [facility] Last Admin: 07/02/16 10:28 Dose: 2.5 mg Enoxaparin Sodium (Lovenox) 30 mg SC DAILY [facility] Last Admin: 07/02/16 10:29 Dose: 30 mg Famotidine (Pepcid) 20 mg PO BID [facility] Last Admin: 07/02/16 10:28 Dose: 20 mg Ceftriaxone Sodium 1 gm/ (Sodium Chloride) 100 mls @ 100 mls/hr IVPB Q24H [facility] Last Admin: 07/01/16 17:32 Dose: 100 mls/hr Ibuprofen (Motrin Tab) 400 mg PO Q6 PRN PRN Reason: Pain, Mild (1-3) Morphine Sulfate (Morphine) 1 mg IVP Q4 PRN PRN Reason: Pain, moderate (4-7) Last Admin: 07/02/16 11:48 Dose: 1 mg Nicotine (Nicoderm Cq) 1 patch TD DAILY [facility] Last Admin: 07/02/16 10:28 Dose: 1 patch Ondansetron HCl (Zofran Inj) 4 mg IVP Q6 PRN PRN Reason: Nausea/Vomiting Oxycodone/Acetaminophen (Percocet 5/325 Mg Tab) 1 tab PO Q4 PRN Stop: 07/05/16 01:46 Last Admin: 07/02/16 08:43 Dose: 1 tab Pneumococcal Polyvalent Vaccine (Pneumovax 23 Vaccine) 0.5 ml IM .ONCE ONE Stop: 07/04/16 10:01 - Labs Labs: 07/02/16 06:38 07/02/16 06:38 PT 12.2 SECONDS (9.7-12.2) 07/01/16 14:22 INR 1.1 07/01/16 14:22 APTT 32 SECONDS (21-34) 07/01/16 14:22 - Constitutional Appears: Well, No Acute Distress, Cachectic, Chronically Ill - Head Exam Head Exam: NORMAL INSPECTION - Eye Exam Eye Exam: EOMI, Normal appearance - ENT Exam ENT Exam: Mucous Membranes Moist - Respiratory Exam Respiratory Exam: Decreased Breath Sounds, NORMAL BREATHING PATTERN - Cardiovascular Exam Cardiovascular Exam: REGULAR RHYTHM - Neurological Exam Neurological Exam: Alert, Awake, Oriented x3 Neuro motor strength exam: Left Upper Extremity: 5, Right Upper Extremity: 5 - Psychiatric Exam Psychiatric exam: Normal Affect, Normal Mood - Skin Skin Exam: Pallor, Pallor Assessment and Plan - Assessment and Plan (Free Text) Assessment: Pneumothorax, history of known metastic disease to the lung 07/02 CXRAY showing improvment and patient reports still has some shortness of breath - but much better than previous. She wanted to know if she could go home tommorow because she thought she felt that good however we explained to her that this maybe too soon. Also I called the patient's PMD Dr Aubrey Underwood and updated her as well. UTI U/A pos for 1+ LE, nitrates, 22 WBCs, 10 RBCs Rocephin Monitor Anxiety 07/02: She wants to go home tomorrow - I explained to her that this is too soon and encouraged her to stay Re-start home med: Xanax 0.5mg HS Daily migraine headaches Re-start home med: Fioricet 2-4 tabs daily PRN Nicotine abuse Nicotine patch Cervical cancer s/p chemo/radiation with mets to Lungs currently on chemo- held x 1 mo due to dental work' 07/02: Per discussion with patient, she is getting chemo at three week intervals at [facility] Jeanne
[2016-07-02] MEDS: Apap-Butalbital-Caffeine 325-50-40mg Tab PO PRN (15:16)
[2016-07-02] MEDS ORDERED: Apap-Butalbital-Caffeine 325-50-40mg Tab PO SCH (18:00)
[2016-07-02] MEDS: Magnesium Hydroxide Susp 30 ml UD PO ONE ×2 (22:34→22:36)
[2016-07-03 06:39] LABS: BASO % 0.3 % (0.0-2.0); EOS # 0.3 K/uL (0.0-0.7); HEMATOCRIT 33.5 % (34.0-47.0); LYMPH # 1.2 K/uL (1.0-4.3); LYMPH % 11.6 % (20.0-40.0); MEAN CELL VOLUME 91.8 fL (81.0-99.0); MEAN CORPUSCULAR HEMOGLOBIN 30.6 pg (27.0-31.0); MEAN CORPUSCULAR HGB CONC 33.3 g/dL (33.0-37.0); MEAN PLATELET VOLUME 8.2 fL (7.2-11.7); MONO # 0.7 K/uL (0.0-0.8); MONO % 7.1 % (0.0-10.0); RED CELL DISTRIBUTION WIDTH 15.6 % (11.5-14.5); WHITE BLOOD COUNT 10.2 K/uL (4.8-10.8)
[2016-07-03 06:51] LABS: CHLORIDE 98 mmol/L (98-107); POTASSIUM 4.3 mmol/L (3.6-5.2); SODIUM 136 mmol/L (132-148)
[2016-07-03 06:53] LABS: BILIRUBIN,TOTAL 0.8 mg/dL (0.2-1.3); GFR AFRICAN-AMERICAN > 60
[2016-07-03 06:54] LABS: ALB/GLOB RATIO 1.1 (1.0-2.1); ALKALINE PHOSPHATASE 100 U/L (38-126); ALT/SGPT 26 U/L (9-52); AST/SGOT 20 U/L (14-36); BLOOD UREA NITROGEN 17 mg/dL (7-17); CALCIUM 8.5 mg/dl (8.6-10.4); CARBON DIOXIDE 23 mmol/L (22-30); GLUCOSE,RANDOM 104 mg/dL (65-105); TOTAL PROTEIN 6.9 g/dL (6.3-8.3)
[2016-07-03 07:17] LABS: MAGNESIUM 1.6 mg/dL (1.6-2.3); PHOSPHOROUS 3.7 mg/dL (2.5-4.5)
[2016-07-03] MEDS: Apap-Butalbital-Caffeine 325-50-40mg Tab PO PRN ×2 (07:30→12:30)
--- NOTE | 2016-07-03 07:36 | CP.CCUPN ---
<GeorgesHaley - Last Filed: 07/03/16 11:44> CCU Subjective - Physician Review Subjective (Free Text): 07/02/16 13:48 Pt seen and examined in no acute distress with no otherwise additional acute events overnight. Patient remains hemodynamically stable. She admits too pain at the site of the chest tube insertion. Patient otherwise denies subjective fevers or chills, headaches, palpitations, paresthesias, shortness of breath, nausea, vomiting or diarrhea at this time. 07/03/16 07:33 Pt seen and examined in no acute distress with no additional acute events overnight. Patient remains hemodynamically stable. Pt a bit anxious about being in the hospital and having the tube in place. Patient reassured that it is important for her to be present here for continued management considering her initial presentation. Patient is a bit anxious and has some pain at the site of chest tube placement. She denies subjective fevers or chills, dyspnea, nausea, vomiting, diarrhea, constipation, headaches or paresthesias at this time. CCU Objective - Vital Signs / Intake & Output Vital Signs (Last 4 hours): Vital Signs Temp Pulse Resp BP Pulse Ox 07/03/16 04:00 98.7 F 69 17 125/73 96 Intake and Output (Last 8hrs): Intake & Output 07/02/16 07/03/16 07/03/16 22:59 06:59 14:59 Intake Total 565 100 Output Total 600 350 Balance -35 -250 Intake: Intake, IV Amount 100 Left Antecubital 100 Oral 465 100 Output: Urine 600 350 Urine, Voided 600 350 - Physical Exam Head: Positive for: Atraumatic, Normocephalic Pupils: Positive for: PERRL Extroacular Muscles: Positive for: EOMI Conjunctiva: Positive for: Normal Mouth: Positive for: Moist Mucous Membranes Neck: Positive for: Normal Range of Motion Respiratory/Chest: Positive for: Good Air Exchange, Other (chest tube in place- connected to waterseal) Cardiovascular: Positive for: Normal S1, S2 Abdomen: Negative for: Tenderness, Distention Upper Extremity: Positive for: Normal Inspection Lower Extremity: Positive for: Normal Inspection Neurological: Positive for: CN II-XII Intact, Speech Normal Skin: Positive for: Warm, Dry Psychiatric: Positive for: Alert, Oriented x 3, Normal Insight, Normal Concentration - Medications Active Medications: Active Medications Generic Name Dose Route Start Last Admin Trade Name Freq PRN Reason Stop Dose Admin Acetaminophen/Butalbital/Caffeine 2 tab 07/02/16 14:54 07/03/16 07:30 Fioricet PO 2 tab Q6 PRN Administration Headache Alprazolam 0.5 mg 07/01/16 15:26 Xanax PO HS PRN Anxiety Docusate Sodium 100 mg 07/02/16 21:45 07/02/16 22:34 Colace PO 100 mg BID [facility] Administration Dronabinol 2.5 mg 07/01/16 18:00 07/02/16 17:10 Marinol PO 2.5 mg BID [facility] Administration Enoxaparin Sodium 30 mg 07/01/16 16:30 07/02/16 10:29 Lovenox SC 30 mg DAILY [facility] Administration Famotidine 20 mg 07/01/16 18:00 07/02/16 17:10 Pepcid PO 20 mg BID [facility] Administration Ceftriaxone Sodium 1 gm/ 100 mls @ 100 mls/hr 07/01/16 17:30 07/02/16 16:44 Sodium Chloride IVPB 100 mls/hr Q24H [facility] Administration Ibuprofen 400 mg 07/01/16 15:29 Motrin Tab PO Q6 PRN Pain, Mild (1-3) Morphine Sulfate 1 mg 07/01/16 16:28 07/03/16 05:36 Morphine IVP 1 mg Q4 PRN Administration Pain, moderate (4-7) Nicotine 1 patch 07/02/16 10:00 07/02/16 10:28 Nicoderm Cq TD 1 patch DAILY [facility] Administration Ondansetron HCl 4 mg 07/01/16 15:29 Zofran Inj IVP Q6 PRN Nausea/Vomiting Oxycodone/Acetaminophen 1 tab 07/02/16 01:45 07/02/16 20:17 Percocet 5/325 Mg Tab PO 07/05/16 01:46 1 tab Q4 PRN Administration Pneumococcal Polyvalent Vaccine 0.5 ml 07/04/16 10:00 Pneumovax 23 Vaccine IM 07/04/16 10:01 .ONCE ONE - Patient Studies Lab Studies: Lab Studies 07/03/16 07/03/16 07/02/16 Range/Units 06:31 04:00 05:00 WBC 10.2 (4.8-10.8) K/uL RBC 3.64 L (3.80-5.20) Mil/uL Hgb 11.2 (11.0-16.0) g/dL Hct 33.5 L (34.0-47.0) % MCV 91.8 (81.0-99.0) fL MCH 30.6 (27.0-31.0) pg MCHC 33.3 (33.0-37.0) g/dL RDW 15.6 H (11.5-14.5) % Plt Count 282 (130-400) K/uL MPV 8.2 (7.2-11.7) fL Neut % (Auto) 78.0 H (50.0-75.0) % Lymph % (Auto) 11.6 L (20.0-40.0) % Scott % (Auto) 7.1 (0.0-10.0) % Eos % (Auto) 3.0 (0.0-4.0) % Baso % (Auto) 0.3 (0.0-2.0) % Neut # 7.9 H (1.8-7.0) K/uL Lymph # 1.2 (1.0-4.3) K/uL Scott # 0.7 (0.0-0.8) K/uL Eos # 0.3 (0.0-0.7) K/uL Baso # 0.0 (0.0-0.2) K/uL Sodium 136 (132-148) mmol/L Potassium 4.3 (3.6-5.2) mmol/L Chloride 98 (98-107) mmol/L Carbon Dioxide 23 (22-30) mmol/L Anion Gap 20 (10-20) BUN 17 (7-17) mg/dL Creatinine 0.7 (0.7-1.2) MG/DL Est GFR ( Amer) > 60 Est GFR (Non-Af Amer) > 60 Random Glucose 104 (65-105) mg/dL Calcium 8.5 L (8.6-10.4) mg/dl Phosphorus 3.7 (2.5-4.5) mg/dL Magnesium 1.6 (1.6-2.3) mg/dL Total Bilirubin 0.8 (0.2-1.3) mg/dL AST 20 (14-36) U/L ALT 26 (9-52) U/L Alkaline Phosphatase 100 (38-126) U/L Total Creatine Kinase 62 (30-135) U/L CK-MB (Mass) 0.82 (0.0-3.38) ng/mL Troponin I, Quant < 0.0120 (0.00-0.120) ng/mL Total Protein 6.9 (6.3-8.3) g/dL Albumin 3.7 (3.5-5.0) g/dL Globulin 3.3 (2.2-3.9) gm/dL Albumin/Globulin Ratio 1.1 (1.0-2.1) Laboratory Results - last 24 hr 07/02/16 07/03/16 07/03/16 05:00 04:00 06:31 WBC 10.2 RBC 3.64 L Hgb 11.2 Hct 33.5 L MCV 91.8 MCH 30.6 MCHC 33.3 RDW 15.6 H Plt Count 282 MPV 8.2 Neut % (Auto) 78.0 H Lymph % (Auto) 11.6 L Scott % (Auto) 7.1 Eos % (Auto) 3.0 Baso % (Auto) 0.3 Neut # 7.9 H Lymph # 1.2 Scott # 0.7 Eos # 0.3 Baso # 0.0 Sodium 136 Potassium 4.3 Chloride 98 Carbon Dioxide 23 Anion Gap 20 BUN 17 Creatinine 0.7 Est GFR ( Amer) > 60 Est GFR (Non-Af Amer) > 60 Random Glucose 104 Calcium 8.5 L Phosphorus 3.7 Magnesium 1.6 Total Bilirubin 0.8 AST 20 ALT 26 Alkaline Phosphatase 100 Total Creatine Kinase 62 CK-MB (Mass) 0.82 Troponin I, Quant < 0.0120 Total Protein 6.9 Albumin 3.7 Globulin 3.3 Albumin/Globulin Ratio 1.1 Review of Systems - Review of Systems Review of Systems: see subjective - Psychiatric Psychiatric: Anxiety Critical Care Progress Note - Nutrition Nutrition: Nutrition Category Date Time Status Regular Diet [DIET] Diets 07/01/16 Dinner Active Assessment/Plan - Assessment and Plan (Free Text) Assessment: 48 year old female with PMHx significant for cervical cancer with metastasis to lungs presents for critical care monitoring after discovery of pneumothorax on imaging. Patient s/p chest tube insertion 07/01/16. Patient remains hemodynamically stable . Plan: Neuro: aao x3 in nad Xanax- for anxiety Cardio: normotensive at this time Cont to monitor F/U Echo KATELIN 1-2 negative Pulm: Chest Tube in place to waterseal. Earlier attempts to turn on suction resulted in hemodynamic instability and thus kept on waterseal. Pneumothorax resolving. Chest Xray shows improvement. Surgery ( Dr. Lira) on board. Dr. Palmer (Cardiothoracic surgery) consulted. F/U . CT Chest ordered. F/U Incentive spirometry Tobacco use disorder- nicotine patch GI: Dronabinol for anti emetic effects; may also stimulate appetite Zofran Regular diet HemeOnc: Cervical cancer with lung mets Dronabinol Pain control management Nephro/: Monitor ins and outs GFR WNL ID: UTI- on Rocephin Prophylaxis: GI: pepcid DVT: SCDs, Lovenox <Jone-Fitta,Elle - Last Filed: 07/03/16 18:04> CCU Objective - Vital Signs / Intake & Output Vital Signs (Last 4 hours): Vital Signs Temp Pulse Resp BP Pulse Ox 07/03/16 17:00 71 22 107/65 99 07/03/16 16:00 98.1 F 68 21 100/62 100 07/03/16 15:00 69 22 109/66 99 Intake and Output (Last 8hrs): Intake & Output 07/03/16 07/03/16 07/03/16 06:59 14:59 22:59 Intake Total 150 225 100 Output Total 350 300 770 Balance -200 -75 -670 Weight 101 lb 4.8 oz Intake: Oral 150 225 100 Output: Urine 350 300 770 Urine, Voided 350 300 770 - Medications Active Medications: Active Medications Generic Name Dose Route Start Last Admin Trade Name Freq PRN Reason Stop Dose Admin Acetaminophen/Butalbital/Caffeine 2 tab 07/02/16 14:54 07/03/16 07:30 Fioricet PO 2 tab Q6 PRN Administration Headache Alprazolam 0.5 mg 07/01/16 15:26 Xanax PO HS PRN Anxiety Docusate Sodium 100 mg 07/02/16 21:45 07/03/16 17:08 Colace PO 100 mg BID [facility] Administration Dronabinol 2.5 mg 07/01/16 18:00 07/03/16 17:08 Marinol PO 2.5 mg BID [facility] Administration Enoxaparin Sodium 30 mg 07/01/16 16:30 07/03/16 09:56 Lovenox SC 30 mg DAILY [facility] Administration Famotidine 20 mg 07/01/16 18:00 07/03/16 17:08 Pepcid PO 20 mg BID [facility] Administration Ceftriaxone Sodium 1 gm/ 100 mls @ 100 mls/hr 07/01/16 17:30 07/03/16 17:06 Sodium Chloride IVPB 100 mls/hr Q24H [facility] Administration Ibuprofen 400 mg 07/01/16 15:29 Motrin Tab PO Q6 PRN Pain, Mild (1-3) Morphine Sulfate 1 mg 07/01/16 16:28 07/03/16 13:47 Morphine IVP 1 mg Q4 PRN Administration Pain, moderate (4-7) Nicotine 1 patch 07/02/16 10:00 07/03/16 10:01 Nicoderm Cq TD 1 patch DAILY [facility] Administration Ondansetron HCl 4 mg 07/01/16 15:29 Zofran Inj IVP Q6 PRN Nausea/Vomiting Oxycodone/Acetaminophen 1 tab 07/02/16 01:45 07/03/16 11:34 Percocet 5/325 Mg Tab PO 07/05/16 01:46 1 tab Q4 PRN Administration Pneumococcal Polyvalent Vaccine 0.5 ml 07/04/16 10:00 Pneumovax 23 Vaccine IM 07/04/16 10:01 .ONCE ONE - Patient Studies Lab Studies: Microbiology Studies 07/01/16 20:45 MRSA Culture (Admit) - Final Naris MRSA NOT DETECTED Lab Studies 07/03/16 07/03/16 Range/Units 06:31 04:00 WBC 10.2 (4.8-10.8) K/uL RBC 3.64 L (3.80-5.20) Mil/uL Hgb 11.2 (11.0-16.0) g/dL Hct 33.5 L (34.0-47.0) % MCV 91.8 (81.0-99.0) fL MCH 30.6 (27.0-31.0) pg MCHC 33.3 (33.0-37.0) g/dL RDW 15.6 H (11.5-14.5) % Plt Count 282 (130-400) K/uL MPV 8.2 (7.2-11.7) fL Neut % (Auto) 78.0 H (50.0-75.0) % Lymph % (Auto) 11.6 L (20.0-40.0) % Scott % (Auto) 7.1 (0.0-10.0) % Eos % (Auto) 3.0 (0.0-4.0) % Baso % (Auto) 0.3 (0.0-2.0) % Neut # 7.9 H (1.8-7.0) K/uL Lymph # 1.2 (1.0-4.3) K/uL Scott # 0.7 (0.0-0.8) K/uL Eos # 0.3 (0.0-0.7) K/uL Baso # 0.0 (0.0-0.2) K/uL Sodium 136 (132-148) mmol/L Potassium 4.3 (3.6-5.2) mmol/L Chloride 98 (98-107) mmol/L Carbon Dioxide 23 (22-30) mmol/L Anion Gap 20 (10-20) BUN 17 (7-17) mg/dL Creatinine 0.7 (0.7-1.2) MG/DL Est GFR ( Amer) > 60 Est GFR (Non-Af Amer) > 60 Random Glucose 104 (65-105) mg/dL Calcium 8.5 L (8.6-10.4) mg/dl Phosphorus 3.7 (2.5-4.5) mg/dL Magnesium 1.6 (1.6-2.3) mg/dL Total Bilirubin 0.8 (0.2-1.3) mg/dL AST 20 (14-36) U/L ALT 26 (9-52) U/L Alkaline Phosphatase 100 (38-126) U/L Total Protein 6.9 (6.3-8.3) g/dL Albumin 3.7 (3.5-5.0) g/dL Globulin 3.3 (2.2-3.9) gm/dL Albumin/Globulin Ratio 1.1 (1.0-2.1) Laboratory Results - last 24 hr 07/03/16 07/03/16 04:00 06:31 WBC 10.2 RBC 3.64 L Hgb 11.2 Hct 33.5 L MCV 91.8 MCH 30.6 MCHC 33.3 RDW 15.6 H Plt Count 282 MPV 8.2 Neut % (Auto) 78.0 H Lymph % (Auto) 11.6 L Scott % (Auto) 7.1 Eos % (Auto) 3.0 Baso % (Auto) 0.3 Neut # 7.9 H Lymph # 1.2 Scott # 0.7 Eos # 0.3 Baso # 0.0 Sodium 136 Potassium 4.3 Chloride 98 Carbon Dioxide 23 Anion Gap 20 BUN 17 Creatinine 0.7 Est GFR ( Amer) > 60 Est GFR (Non-Af Amer) > 60 Random Glucose 104 Calcium 8.5 L Phosphorus 3.7 Magnesium 1.6 Total Bilirubin 0.8 AST 20 ALT 26 Alkaline Phosphatase 100 Total Protein 6.9 Albumin 3.7 Globulin 3.3 Albumin/Globulin Ratio 1.1 Critical Care Progress Note - Nutrition Nutrition: Nutrition Category Date Time Status Regular Diet [DIET] Diets 07/01/16 Dinner Active Attending/Attestation - Attestation Notes (Text): 07/03/16 18:04 please look at my note at 16:19
[2016-07-03] MEDS: Enoxaparin 30 mg Syringe SC SCH (09:56)
[2016-07-03] MEDS ORDERED: Sodium Chloride 0.9% 1,000 ML IV SCH (11:00)
[2016-07-03] MEDS: Oxycodone/Acetaminophen 5/325 mg Tab PO PRN ×2 (11:34→22:54)
--- NOTE | 2016-07-03 12:01 | RAD ---
HISTORY: comparison, chest tube, pneumo . Technique: Single view portable semi erect @ 07:14. COMPARISON: Multiple serial examinations preceding the most recent study: July 02, 2016. FINDINGS: LUNGS: Improved aeration of the right lung. PLEURA: Stable small right apical pneumothorax. Chest tube remains in satisfactory position in right pleural space CARDIOVASCULAR: No radiographic findings to suggest acute or significant cardiovascular disease. Venous access catheter in stable, satisfactory position. OSSEOUS STRUCTURES: No significant abnormalities. VISUALIZED UPPER ABDOMEN: Normal. OTHER FINDINGS: Trace subcutaneous emphysema again identified. IMPRESSION: No significant interval change compared to the prior examination(s).
--- NOTE | 2016-07-03 13:13 | CT ---
PROCEDURE: CT chest dated 07/03/2016 COMPARISON: Comparison made with chest radiograph and CT scan chest both dated 07/01/2016. TECHNIQUE: Radiation dose (DLP): 171.64 mGy-cm. FINDINGS: Re- demonstrated is and in situ right-sided chest tube unchanged from prior CT scan however new when compared with prior chest x-ray. Small residual right-sided pneumothorax markedly decreased in size from prior chest radiographs however diminished only slightly from prior CT scan. Pneumo thorax components seen in the at apical and antrum medial and to a lesser degree right posteromedial lower lung maxwell. There is also small right-sided pleural effusion. Collective findings are consistent with a hydro pneumothorax. Multiple varying sized round solid and cavitary lesions are seen throughout the right upper and lower lobes bilaterally. Findings most could represent metastatic disease given the patient's history of cervical carcinoma. The possibility of infection including tuberculosis given the patient's current chemotherapy treatment also not excluded. Clinical correlation recommended. . There are also of vague area of increased opacity in the right upper lobe bordering the fissure that could represent atelectasis versus developing infiltrate. Heart size within range of normal. . No significant pericardial effusion. Ascending thoracic aorta measures approximately 3.06 cm and descending thoracic aorta measures approximately 2.25 cm. Pulmonary trunk measures approximately 2.3 cm. Measurements obtained on axial series 4, image number 56. In situ left subclavian MediPort with tip in the SVC. There are few small calcified subcarinal and right peritracheal as well as right hilar lymph nodes. Findings suggest prior exposure to granulomatous disease process such as tuberculous . . Tiny hiatal hernia is present. . . Thyroid gland is slightly heterogeneous. There does appear to be a small approximately 3.5 mm low-attenuation lesion right lobe thyroid gland. Followup thyroid ultrasound could be performed for further evaluation. Tiny calcification within the splenic parenchyma suggesting prior exposure to granulomatous disease process. Small amount of subcutaneous air seen within right chest wall related to placement of chest tube. Suspect a small bone infarct or enchondroma within the right humeral head and proximal right humerus. Minor multilevel degenerative spondylosis of the thoracic spine. No suspicious lytic or blastic lesions are identified. Impression: Re- demonstrated is in situ right-sided chest tube Small residual right-sided pneumothorax markedly decreased from prior chest radiographs however only slightly decreased from prior chest CT scan There are multiple varying sized rounded solid and cavitary lesions seen scattered throughout the upper and lower lobes bilaterally. Rule out metastatic disease versus infectious etiology including tuberculosis. There are small calcified mediastinal lymph nodes Lacey small calcification within splenic parenchyma all which are consistent with prior exposure to granulomatous disease process Mild thickening left adrenal gland
--- NOTE | 2016-07-03 13:58 | CP.PCM.CON ---
History of Present Illness - History of Present Illness History of Present Illness: Reason for consultation: Persistent pneumothorax, right. Referred by: . The pt s/e, progress notes and imaging studies reviwed. This is a 56 yo F with pmh s/p chemo/rt for cervical ca metastatic to lungs admitted via ER on 07-01-16 for incidetally discovered right pneumothorax in a outpatient radiology clinic. The pt reports that she had been experiencing chest discomfort for about 3wks. A 20f chest tube was inserted on admission, howver, the pt continues to have air leak. Repeat ct of chest : right pneumothorax has not improved significantly(compared with previous ct of chest) , although significant improvement is noted from pneumothorax on cxr. I do not find any blebs or bullous dis, but several cavitary met lesions(? cause for pneumo). VATS resection (if leaking area is found), and pleurodesis(talc or pleurectomy), would be procedure of [facility] or Heimlich valve (with opc f/u). The pat elected to undergo VATS. Will schedule for either Wednesday or Wednesday. Surgical procedure, risks, benefits, and alternatives discussed with the pt who accepted surgery. Past Patient History - Infectious Disease Hx of Infectious Diseases: None - Past Medical History & Family History Past Medical History?: Yes - Past Social History Smoking Status: Light Smoker < 10 Cigarettes Daily - PULMONARY Hx Lung Cancer: Yes - HEMATOLOGICAL/ONCOLOGICAL Hx Cancer: Yes (Cervical) - MUSCULOSKELETAL/RHEUMATOLOGICAL Hx Falls: Yes - GENITOURINARY/GYNECOLOGICAL Hx Cervical Cancer: Yes - PSYCHIATRIC Hx Depression: Yes Hx Substance Use: No - SURGICAL HISTORY Other/Comment: Left Subclavian port insertion; 4 rounds of brachytherapy. - ANESTHESIA Hx Anesthesia: Yes Hx Anesthesia Reactions: No Hx Malignant Hyperthermia: No Meds Allergies/Adverse Reactions: Allergies Allergy/AdvReac Type Severity Reaction Status Date / Time No Known Allergies Allergy Verified 07/01/16 12:42 - Medications Medications: Current Medications Acetaminophen/Butalbital/Caffeine (Fioricet) 2 tab PO Q6 PRN PRN Reason: Headache Last Admin: 07/03/16 07:30 Dose: 2 tab Alprazolam (Xanax) 0.5 mg PO HS PRN PRN Reason: Anxiety Docusate Sodium (Colace) 100 mg PO BID [facility] Last Admin: 07/03/16 09:56 Dose: 100 mg Dronabinol (Marinol) 2.5 mg PO BID [facility] Last Admin: 07/03/16 09:56 Dose: 2.5 mg Enoxaparin Sodium (Lovenox) 30 mg SC DAILY [facility] Last Admin: 07/03/16 09:56 Dose: 30 mg Famotidine (Pepcid) 20 mg PO BID [facility] Last Admin: 07/03/16 09:56 Dose: 20 mg Ceftriaxone Sodium 1 gm/ (Sodium Chloride) 100 mls @ 100 mls/hr IVPB Q24H [facility] Last Admin: 07/02/16 16:44 Dose: 100 mls/hr Ibuprofen (Motrin Tab) 400 mg PO Q6 PRN PRN Reason: Pain, Mild (1-3) Morphine Sulfate (Morphine) 1 mg IVP Q4 PRN PRN Reason: Pain, moderate (4-7) Last Admin: 07/03/16 10:06 Dose: 1 mg Nicotine (Nicoderm Cq) 1 patch TD DAILY [facility] Last Admin: 07/03/16 10:01 Dose: 1 patch Ondansetron HCl (Zofran Inj) 4 mg IVP Q6 PRN PRN Reason: Nausea/Vomiting Oxycodone/Acetaminophen (Percocet 5/325 Mg Tab) 1 tab PO Q4 PRN Stop: 07/05/16 01:46 Last Admin: 07/03/16 11:34 Dose: 1 tab Pneumococcal Polyvalent Vaccine (Pneumovax 23 Vaccine) 0.5 ml IM .ONCE ONE Stop: 07/04/16 10:01 Results - Vital Signs Recent Vital Signs: Last Vital Signs Temp 98.4 F 07/03/16 12:00 Pulse 69 07/03/16 13:00 Resp 19 07/03/16 13:00 BP 115/72 07/03/16 13:00 Pulse Ox 99 07/03/16 13:00 - Labs Result Diagrams: 07/03/16 06:31 07/03/16 06:31 Labs: Laboratory Results - last 24 hr 07/03/16 07/03/16 04:00 06:31 WBC 10.2 RBC 3.64 L Hgb 11.2 Hct 33.5 L MCV 91.8 MCH 30.6 MCHC 33.3 RDW 15.6 H Plt Count 282 MPV 8.2 Neut % (Auto) 78.0 H Lymph % (Auto) 11.6 L [place] % (Auto) 7.1 Eos % (Auto) 3.0 Baso % (Auto) 0.3 Neut # 7.9 H Lymph # 1.2 [place] # 0.7 Eos # 0.3 Baso # 0.0 Sodium 136 Potassium 4.3 Chloride 98 Carbon Dioxide 23 Anion Gap 20 BUN 17 Creatinine 0.7 Est GFR ( Amer) > 60 Est GFR (Non-Af Amer) > 60 Random Glucose 104 Calcium 8.5 L Phosphorus 3.7 Magnesium 1.6 Total Bilirubin 0.8 AST 20 ALT 26 Alkaline Phosphatase 100 Total Protein 6.9 Albumin 3.7 Globulin 3.3 Albumin/Globulin Ratio 1.1
--- NOTE | 2016-07-03 14:22 | CP.PCM.PN ---
Subjective - Date & Time of Evaluation Date of Evaluation: 07/03/16 Time of Evaluation: 09:15 - Subjective Subjective: Patient seen and evaluated lying in bed. Pt reports pain at site of chest tube. No acute complaints. Denies fever, chills, dyspnea, orthopnea, cough, constipation, and diarrhea. Objective - Vital Signs/Intake and Output Vital Signs (last 24 hours): Temp Pulse Resp BP Pulse Ox 98.4 F 69 19 115/72 99 07/03/16 12:00 07/03/16 13:00 07/03/16 13:00 07/03/16 13:00 07/03/16 13:00 Intake and Output: 07/03/16 07/03/16 06:59 18:59 Intake Total 450 150 Output Total 650 300 Balance -200 -150 - Medications Medications: Current Medications Acetaminophen/Butalbital/Caffeine (Fioricet) 2 tab PO Q6 PRN PRN Reason: Headache Last Admin: 07/03/16 07:30 Dose: 2 tab Alprazolam (Xanax) 0.5 mg PO HS PRN PRN Reason: Anxiety Docusate Sodium (Colace) 100 mg PO BID [facility] Last Admin: 07/03/16 09:56 Dose: 100 mg Dronabinol (Marinol) 2.5 mg PO BID [facility] Last Admin: 07/03/16 09:56 Dose: 2.5 mg Enoxaparin Sodium (Lovenox) 30 mg SC DAILY [facility] Last Admin: 07/03/16 09:56 Dose: 30 mg Famotidine (Pepcid) 20 mg PO BID [facility] Last Admin: 07/03/16 09:56 Dose: 20 mg Ceftriaxone Sodium 1 gm/ (Sodium Chloride) 100 mls @ 100 mls/hr IVPB Q24H [facility] Last Admin: 07/02/16 16:44 Dose: 100 mls/hr Ibuprofen (Motrin Tab) 400 mg PO Q6 PRN PRN Reason: Pain, Mild (1-3) Morphine Sulfate (Morphine) 1 mg IVP Q4 PRN PRN Reason: Pain, moderate (4-7) Last Admin: 07/03/16 13:47 Dose: 1 mg Nicotine (Nicoderm Cq) 1 patch TD DAILY [facility] Last Admin: 07/03/16 10:01 Dose: 1 patch Ondansetron HCl (Zofran Inj) 4 mg IVP Q6 PRN PRN Reason: Nausea/Vomiting Oxycodone/Acetaminophen (Percocet 5/325 Mg Tab) 1 tab PO Q4 PRN Stop: 07/05/16 01:46 Last Admin: 07/03/16 11:34 Dose: 1 tab Pneumococcal Polyvalent Vaccine (Pneumovax 23 Vaccine) 0.5 ml IM .ONCE ONE Stop: 07/04/16 10:01 - Labs Labs: 07/03/16 06:31 07/03/16 06:31 PT 12.2 SECONDS (9.7-12.2) 07/01/16 14:22 INR 1.1 07/01/16 14:22 APTT 32 SECONDS (21-34) 07/01/16 14:22 - Constitutional Appears: Non-toxic, No Acute Distress - Head Exam Head Exam: NORMAL INSPECTION, NORMOCEPHALIC - Eye Exam Eye Exam: Normal appearance Pupil Exam: NORMAL ACCOMODATION - ENT Exam ENT Exam: Mucous Membranes Moist, Normal Exam - Neck Exam Neck Exam: Normal Inspection - Respiratory Exam Respiratory Exam: Clear to Ausculation Bilateral, Wheezes, NORMAL BREATHING PATTERN. absent: Rales, Rhonchi Additional comments: Subcutaneous emphysema noted Right sided chest tube in place with dressing C/D/I. Chamber of CT is showing bubbles on cough - Cardiovascular Exam Cardiovascular Exam: REGULAR RHYTHM, +S1, +S2. absent: JVD, Rubs, Murmur - GI/Abdominal Exam GI & Abdominal Exam: Soft, Normal Bowel Sounds. absent: Tenderness - Rectal Exam Rectal Exam: NORMAL INSPECTION - Extremities Exam Extremities Exam: Full ROM, Normal Inspection - Back Exam Back Exam: NORMAL INSPECTION - Neurological Exam Neurological Exam: Alert, Awake - Psychiatric Exam Psychiatric exam: Anxious, Normal Affect - Skin Skin Exam: Dry, Intact, Normal Color, Warm Assessment and Plan - Assessment and Plan (Free Text) Assessment: Spontaneous right pneumothorax Plan: Chest tube on waterseal since 07/01 evening due to desaturation on wall suction. Air leak is present in lung. Rupture of bleb vs. metastatic mass damage to pleura as source. Consult made to Dr. Palmer for cardiothoracic evaluation of air leak. f/u repeat CT with IV contrast for evaluation of pneumothorax. CXR 07/03/16 shows persistent apical pneumothorax. CT 07/01/16 Right-sided pneumothorax. Extensive subcutaneous emphysema involving the right chest wall. Right-sided chest tube. Multiple pulmonary nodules and cavitary lesions consistent with metastatic disease this patient with history of cervical carcinoma and metastases. Calcified mediastinal lymph nodes.
--- NOTE | 2016-07-03 16:20 | CP.CCUPN ---
CCU Subjective - Physician Review Events Since Last Encounter (Free Text): 07/03/16 16:19 Patient seen and examined this morning, doing well, saturating 99% on RA, pain at the insertion of CT. CT to suction since she desaturates in the 70's when placed to suction, even at -10 cm h2o, pneumothorax not improving. 10 ros asked and negative except for above and anxiety pe: bp 100/62 mmhg, hr 67 mmhg, rr 16 bpm, O2 99% on RA, afebrile middle age lady sitting in chair in no acute distress aaox3 lungs good bilateral air of entry s1, s2 rrr abdomen soft, non tender good strength in all extremities skin no rashes a/p: unresolved right pneumothorax: called Dr. Palmer who has evaluated the patient, he has discussed the case with her, patient has opted for VATS, potentially will be done on wednesday. No need for further laboratory exams or change in management at this time cervical Ca with mets to the lung. CCU Objective - Vital Signs / Intake & Output Vital Signs (Last 4 hours): Vital Signs Temp Pulse Resp BP Pulse Ox 07/03/16 16:00 98.1 F 68 21 100/62 100 07/03/16 15:00 69 22 109/66 99 07/03/16 14:00 68 23 109/63 98 07/03/16 13:00 69 19 115/72 99 Intake and Output (Last 8hrs): Intake & Output 07/03/16 07/03/16 07/03/16 06:59 14:59 22:59 Intake Total 150 225 0 Output Total 350 300 450 Balance -200 -75 -450 Weight 101 lb 4.8 oz Intake: Oral 150 225 0 Output: Urine 350 300 450 Urine, Voided 350 300 450 - Physical Exam Head: Positive for: Atraumatic, Normocephalic Pupils: Positive for: PERRL Extroacular Muscles: Positive for: EOMI Conjunctiva: Positive for: Normal Mouth: Positive for: Moist Mucous Membranes Neck: Positive for: Normal Range of Motion Respiratory/Chest: Positive for: Good Air Exchange, Other (chest tube in place- connected to waterseal) Cardiovascular: Positive for: Normal S1, S2 Abdomen: Negative for: Tenderness, Distention Upper Extremity: Positive for: Normal Inspection Lower Extremity: Positive for: Normal Inspection Neurological: Positive for: CN II-XII Intact, Speech Normal Skin: Positive for: Warm, Dry Psychiatric: Positive for: Alert, Oriented x 3, Normal Insight, Normal Concentration - Medications Active Medications: Active Medications Generic Name Dose Route Start Last Admin Trade Name Freq PRN Reason Stop Dose Admin Acetaminophen/Butalbital/Caffeine 2 tab 07/02/16 14:54 07/03/16 07:30 Fioricet PO 2 tab Q6 PRN Administration Headache Alprazolam 0.5 mg 07/01/16 15:26 Xanax PO HS PRN Anxiety Docusate Sodium 100 mg 07/02/16 21:45 07/03/16 09:56 Colace PO 100 mg BID [facility] Administration Dronabinol 2.5 mg 07/01/16 18:00 07/03/16 09:56 Marinol PO 2.5 mg BID [facility] Administration Enoxaparin Sodium 30 mg 07/01/16 16:30 07/03/16 09:56 Lovenox SC 30 mg DAILY [facility] Administration Famotidine 20 mg 07/01/16 18:00 07/03/16 09:56 Pepcid PO 20 mg BID [facility] Administration Ceftriaxone Sodium 1 gm/ 100 mls @ 100 mls/hr 07/01/16 17:30 07/02/16 16:44 Sodium Chloride IVPB 100 mls/hr Q24H [facility] Administration Ibuprofen 400 mg 07/01/16 15:29 Motrin Tab PO Q6 PRN Pain, Mild (1-3) Morphine Sulfate 1 mg 07/01/16 16:28 07/03/16 13:47 Morphine IVP 1 mg Q4 PRN Administration Pain, moderate (4-7) Nicotine 1 patch 07/02/16 10:00 07/03/16 10:01 Nicoderm Cq TD 1 patch DAILY [facility] Administration Ondansetron HCl 4 mg 07/01/16 15:29 Zofran Inj IVP Q6 PRN Nausea/Vomiting Oxycodone/Acetaminophen 1 tab 07/02/16 01:45 07/03/16 11:34 Percocet 5/325 Mg Tab PO 07/05/16 01:46 1 tab Q4 PRN Administration Pneumococcal Polyvalent Vaccine 0.5 ml 07/04/16 10:00 Pneumovax 23 Vaccine IM 07/04/16 10:01 .ONCE ONE - Patient Studies Lab Studies: Microbiology Studies 07/01/16 20:45 MRSA Culture (Admit) - Final Naris MRSA NOT DETECTED Lab Studies 07/03/16 07/03/16 Range/Units 06:31 04:00 WBC 10.2 (4.8-10.8) K/uL RBC 3.64 L (3.80-5.20) Mil/uL Hgb 11.2 (11.0-16.0) g/dL Hct 33.5 L (34.0-47.0) % MCV 91.8 (81.0-99.0) fL MCH 30.6 (27.0-31.0) pg MCHC 33.3 (33.0-37.0) g/dL RDW 15.6 H (11.5-14.5) % Plt Count 282 (130-400) K/uL MPV 8.2 (7.2-11.7) fL Neut % (Auto) 78.0 H (50.0-75.0) % Lymph % (Auto) 11.6 L (20.0-40.0) % [place] % (Auto) 7.1 (0.0-10.0) % Eos % (Auto) 3.0 (0.0-4.0) % Baso % (Auto) 0.3 (0.0-2.0) % Neut # 7.9 H (1.8-7.0) K/uL Lymph # 1.2 (1.0-4.3) K/uL [place] # 0.7 (0.0-0.8) K/uL Eos # 0.3 (0.0-0.7) K/uL Baso # 0.0 (0.0-0.2) K/uL Sodium 136 (132-148) mmol/L Potassium 4.3 (3.6-5.2) mmol/L Chloride 98 (98-107) mmol/L Carbon Dioxide 23 (22-30) mmol/L Anion Gap 20 (10-20) BUN 17 (7-17) mg/dL Creatinine 0.7 (0.7-1.2) MG/DL Est GFR ( Amer) > 60 Est GFR (Non-Af Amer) > 60 Random Glucose 104 (65-105) mg/dL Calcium 8.5 L (8.6-10.4) mg/dl Phosphorus 3.7 (2.5-4.5) mg/dL Magnesium 1.6 (1.6-2.3) mg/dL Total Bilirubin 0.8 (0.2-1.3) mg/dL AST 20 (14-36) U/L ALT 26 (9-52) U/L Alkaline Phosphatase 100 (38-126) U/L Total Protein 6.9 (6.3-8.3) g/dL Albumin 3.7 (3.5-5.0) g/dL Globulin 3.3 (2.2-3.9) gm/dL Albumin/Globulin Ratio 1.1 (1.0-2.1) Laboratory Results - last 24 hr 07/03/16 07/03/16 04:00 06:31 WBC 10.2 RBC 3.64 L Hgb 11.2 Hct 33.5 L MCV 91.8 MCH 30.6 MCHC 33.3 RDW 15.6 H Plt Count 282 MPV 8.2 Neut % (Auto) 78.0 H Lymph % (Auto) 11.6 L [place] % (Auto) 7.1 Eos % (Auto) 3.0 Baso % (Auto) 0.3 Neut # 7.9 H Lymph # 1.2 [place] # 0.7 Eos # 0.3 Baso # 0.0 Sodium 136 Potassium 4.3 Chloride 98 Carbon Dioxide 23 Anion Gap 20 BUN 17 Creatinine 0.7 Est GFR ( Amer) > 60 Est GFR (Non-Af Amer) > 60 Random Glucose 104 Calcium 8.5 L Phosphorus 3.7 Magnesium 1.6 Total Bilirubin 0.8 AST 20 ALT 26 Alkaline Phosphatase 100 Total Protein 6.9 Albumin 3.7 Globulin 3.3 Albumin/Globulin Ratio 1.1 Critical Care Progress Note - Nutrition Nutrition: Nutrition Category Date Time Status Regular Diet [DIET] Diets 07/01/16 Dinner Active
--- NOTE | 2016-07-03 16:51 | CP.PCM.PN ---
Subjective - Date & Time of Evaluation Date of Evaluation: 07/03/16 Time of Evaluation: 12:00 - Subjective Subjective: Patient was seen and examined by me earlier in the day. I discussed with the staff and ICU physician. CT surgery evaluation pending as well as a CT with IV contrast. Concern is that the chest tube that is currently in place if it is pulled likely result in the pneumothorax reoccurring due to difficulties even when on water seal and gentle suctioning pressure. Her heart rate is in the 60s to 70s and also the patient BP is stable Later in the day per review of notes she was seen and decided on VATs this either Wednesday or Wednesday She denied headache, denied chest pain other than pain at the site of chest tube. She denied palpitations, denied stomachaches, denied fever, denied difficulty with urination or bowel. She reports feeling depressed and anxious Objective - Vital Signs/Intake and Output Vital Signs (last 24 hours): Temp Pulse Resp BP Pulse Ox 98.1 F 68 21 100/62 100 07/03/16 16:00 07/03/16 16:00 07/03/16 16:00 07/03/16 16:00 07/03/16 16:00 Intake and Output: 07/03/16 07/03/16 06:59 18:59 Intake Total 450 225 Output Total 650 750 Balance -200 -525 - Medications Medications: Current Medications Acetaminophen/Butalbital/Caffeine (Fioricet) 2 tab PO Q6 PRN PRN Reason: Headache Last Admin: 07/03/16 07:30 Dose: 2 tab Alprazolam (Xanax) 0.5 mg PO HS PRN PRN Reason: Anxiety Docusate Sodium (Colace) 100 mg PO BID [facility] Last Admin: 07/03/16 09:56 Dose: 100 mg Dronabinol (Marinol) 2.5 mg PO BID [facility] Last Admin: 07/03/16 09:56 Dose: 2.5 mg Enoxaparin Sodium (Lovenox) 30 mg SC DAILY [facility] Last Admin: 07/03/16 09:56 Dose: 30 mg Famotidine (Pepcid) 20 mg PO BID [facility] Last Admin: 07/03/16 09:56 Dose: 20 mg Ceftriaxone Sodium 1 gm/ (Sodium Chloride) 100 mls @ 100 mls/hr IVPB Q24H [facility] Last Admin: 07/02/16 16:44 Dose: 100 mls/hr Ibuprofen (Motrin Tab) 400 mg PO Q6 PRN PRN Reason: Pain, Mild (1-3) Morphine Sulfate (Morphine) 1 mg IVP Q4 PRN PRN Reason: Pain, moderate (4-7) Last Admin: 07/03/16 13:47 Dose: 1 mg Nicotine (Nicoderm Cq) 1 patch TD DAILY [facility] Last Admin: 07/03/16 10:01 Dose: 1 patch Ondansetron HCl (Zofran Inj) 4 mg IVP Q6 PRN PRN Reason: Nausea/Vomiting Oxycodone/Acetaminophen (Percocet 5/325 Mg Tab) 1 tab PO Q4 PRN Stop: 07/05/16 01:46 Last Admin: 07/03/16 11:34 Dose: 1 tab Pneumococcal Polyvalent Vaccine (Pneumovax 23 Vaccine) 0.5 ml IM .ONCE ONE Stop: 07/04/16 10:01 - Labs Labs: 07/03/16 06:31 07/03/16 06:31 PT 12.2 SECONDS (9.7-12.2) 07/01/16 14:22 INR 1.1 07/01/16 14:22 APTT 32 SECONDS (21-34) 07/01/16 14:22 - Constitutional Appears: Cachectic, Chronically Ill - Head Exam Head Exam: NORMAL INSPECTION - Eye Exam Eye Exam: EOMI - ENT Exam ENT Exam: Mucous Membranes Moist - Respiratory Exam Respiratory Exam: Decreased Breath Sounds Additional comments: Patient has decreased breath sounds, particularly on the side of the pneumothorax - Cardiovascular Exam Cardiovascular Exam: REGULAR RHYTHM - GI/Abdominal Exam GI & Abdominal Exam: Soft, Normal Bowel Sounds - Neurological Exam Neurological Exam: Alert, Awake, CN II-XII Intact, Oriented x3 Neuro motor strength exam: Left Upper Extremity: 5, Right Upper Extremity: 5, Left Lower Extremity: 5, Right Lower Extremity: 5 - Psychiatric Exam Psychiatric exam: Anxious Additional comments: Patient has a very anxious affect - Skin Skin Exam: Pallor, Pallor Assessment and Plan - Assessment and Plan (Free Text) Assessment: Pneumothorax, history of known metastic disease to the lung 07/03: CT surgery evaluation, the concern is that the pneumothorax is not resolving. Patient is having trouble with low suctioning pressures with the chest tube. The concern is that removal of the tube will simply lead to the re- occurence of the pneumothorax. She will be pending a VATs wither Wednesday or Sunday 07/02 CXRAY showing improvment and patient reports still has some shortness of breath - but much better than previous. She wanted to know if she could go home tommorow because she thought she felt that good however we explained to her that this maybe too soon. Also I called the patient's PMD Dr Aubrey Underwood and updated her as well. UTI U/A pos for 1+ LE, nitrates, 22 WBCs, 10 RBCs Rocephin Monitor Anxiety 07/02: She wants to go home tomorrow - I explained to her that this is too soon and encouraged her to stay Re-start home med: Xanax 0.5mg HS Daily migraine headaches Re-start home med: Fioricet 2-4 tabs daily PRN Nicotine abuse Nicotine patch Cervical cancer s/p chemo/radiation with mets to Lungs currently on chemo- held x 1 mo due to dental work' 07/02: Per discussion with patient, she is getting chemo at three week intervals at [facility] Jeanne
[2016-07-04 06:38] LABS: BASO % 0.4 % (0.0-2.0); EOS # 0.5 K/uL (0.0-0.7); LYMPH # 1.4 K/uL (1.0-4.3); MEAN CELL VOLUME 92.1 fL (81.0-99.0); MEAN PLATELET VOLUME 8.2 fL (7.2-11.7); MONO # 0.7 K/uL (0.0-0.8); WHITE BLOOD COUNT 7.8 K/uL (4.8-10.8)
[2016-07-04 06:47] LABS: EOS % 6.6 % (0.0-4.0); HEMATOCRIT 34.8 % (34.0-47.0); LYMPH % 17.9 % (20.0-40.0); MEAN CORPUSCULAR HEMOGLOBIN 30.5 pg (27.0-31.0); MEAN CORPUSCULAR HGB CONC 33.2 g/dL (33.0-37.0); MONO % 8.7 % (0.0-10.0); RED CELL DISTRIBUTION WIDTH 16.3 % (11.5-14.5)
[2016-07-04 06:58] LABS: CHLORIDE 96 mmol/L (98-107)
[2016-07-04 06:59] LABS: POTASSIUM 4.2 mmol/L (3.6-5.2); SODIUM 139 mmol/L (132-148)
[2016-07-04 07:02] LABS: ALB/GLOB RATIO 1.1 (1.0-2.1); ALKALINE PHOSPHATASE 100 U/L (38-126); ALT/SGPT 24 U/L (9-52); AST/SGOT 21 U/L (14-36); BILIRUBIN,TOTAL 0.6 mg/dL (0.2-1.3); BLOOD UREA NITROGEN 18 mg/dL (7-17); CARBON DIOXIDE 27 mmol/L (22-30); GFR AFRICAN-AMERICAN > 60; GLUCOSE,RANDOM 94 mg/dL (65-105); PHOSPHOROUS 4.2 mg/dL (2.5-4.5); TOTAL PROTEIN 7.3 g/dL (6.3-8.3)
[2016-07-04 07:03] LABS: CALCIUM 8.9 mg/dl (8.6-10.4); MAGNESIUM 1.7 mg/dL (1.6-2.3)
[2016-07-04] MEDS: Apap-Butalbital-Caffeine 325-50-40mg Tab PO PRN (08:31)
[2016-07-04] MEDS ORDERED: Pneumococcal 23-Valent Vaccine IM ONE (10:00)
[2016-07-04] MEDS: Enoxaparin 30 mg Syringe SC SCH (10:08)
--- NOTE | 2016-07-04 10:09 | RAD ---
HISTORY: monitor pneumothorax COMPARISON: No prior. FINDINGS: LUNGS: Persistent tiny right apical pneumothorax with right chest tube in place. Diffuse increased interstitial lung markings. Mild blunting of the left costophrenic angle. PLEURA: As above. CARDIOVASCULAR: Normal. OSSEOUS STRUCTURES: Persistent sclerotic density in the right proximal humerus. Chronic rib fracture deformities. VISUALIZED UPPER ABDOMEN: Normal. OTHER FINDINGS: Lines and tubes in stable position. IMPRESSION: Persistent tiny right apical pneumothorax.
--- NOTE | 2016-07-04 12:30 | CP.PCM.PN ---
Subjective - Date & Time of Evaluation Date of Evaluation: 07/04/16 Time of Evaluation: 09:45 - Subjective Subjective: Thoracic Surgery Dr. Palmer Pt S&E @bedside. NAEO. RCT to water seal. no complaints. admits to some chest discomfort at tube site. denies F/C, N/V. tolerating diet Objective - Vital Signs/Intake and Output Vital Signs (last 24 hours): Temp Pulse Resp BP Pulse Ox 98.3 F 60 20 104/63 93 L 07/03/16 23:00 07/04/16 07:00 07/04/16 07:00 07/04/16 07:00 07/04/16 07:00 Intake and Output: 07/04/16 07/04/16 06:59 18:59 Intake Total 200 0 Output Total 1300 0 Balance -1100 0 - Medications Medications: Current Medications Acetaminophen/Butalbital/Caffeine (Fioricet) 2 tab PO Q6 PRN PRN Reason: Headache Last Admin: 07/04/16 08:31 Dose: 2 tab Alprazolam (Xanax) 0.5 mg PO HS PRN PRN Reason: Anxiety Docusate Sodium (Colace) 100 mg PO BID [facility] Last Admin: 07/04/16 10:08 Dose: 100 mg Dronabinol (Marinol) 2.5 mg PO BID [facility] Last Admin: 07/04/16 10:08 Dose: 2.5 mg Enoxaparin Sodium (Lovenox) 30 mg SC DAILY [facility] Last Admin: 07/04/16 10:08 Dose: 30 mg Famotidine (Pepcid) 20 mg PO BID [facility] Last Admin: 07/04/16 10:08 Dose: 20 mg Ceftriaxone Sodium 1 gm/ (Sodium Chloride) 100 mls @ 100 mls/hr IVPB Q24H [facility] Last Admin: 07/03/16 17:06 Dose: 100 mls/hr Ibuprofen (Motrin Tab) 400 mg PO Q6 PRN PRN Reason: Pain, Mild (1-3) Morphine Sulfate (Morphine) 4 mg IVP Q4H PRN PRN Reason: Pain, moderate (4-7) Last Admin: 07/04/16 10:09 Dose: 4 mg Nicotine (Nicoderm Cq) 1 patch TD DAILY [facility] Last Admin: 07/04/16 10:10 Dose: 1 patch Ondansetron HCl (Zofran Inj) 4 mg IVP Q6 PRN PRN Reason: Nausea/Vomiting Oxycodone/Acetaminophen (Percocet 5/325 Mg Tab) 1 tab PO Q4 PRN Stop: 07/05/16 01:46 Last Admin: 07/03/16 22:54 Dose: 1 tab - Labs Labs: 07/04/16 06:34 07/04/16 04:00 PT 12.2 SECONDS (9.7-12.2) 07/01/16 14:22 INR 1.1 07/01/16 14:22 APTT 32 SECONDS (21-34) 07/01/16 14:22 - Constitutional Appears: Non-toxic, Toxic, Cachectic - Head Exam Head Exam: NORMAL INSPECTION - Eye Exam Eye Exam: Normal appearance - ENT Exam ENT Exam: Mucous Membranes Moist - Respiratory Exam Respiratory Exam: NORMAL BREATHING PATTERN. absent: Accessory Muscle Use, Respiratory Distress - Cardiovascular Exam Cardiovascular Exam: REGULAR RHYTHM. absent: Bradycardia, Tachycardia - GI/Abdominal Exam Additional comments: RCT inplace dressing C/D/I tube to water seal - Extremities Exam Extremities Exam: Normal Inspection - Neurological Exam Neurological Exam: Alert, Awake, Oriented x3 - Psychiatric Exam Psychiatric exam: Normal Affect, Normal Mood - Skin Skin Exam: Dry, Intact, Normal Color, Warm Assessment and Plan - Assessment and Plan (Free Text) Assessment: 56 y/o F w/ spontaneous Pneumothorax - cont RCT to water seal - daily CXR - VATS on Wednesday Pt discussed w/ Dr. Spencer Hogan DO PGY1
--- NOTE | 2016-07-04 13:19 | CP.CCUPN ---
CCU Subjective - Physician Review Events Since Last Encounter (Free Text): 07/04/16 13:12 Patient seen and examined this morning, stable, has a lot of pain at the site of CT insertion. Had a headache in am that resolved with Fioricet. she feels a little anxious this am. 10 ros asked and negative except for above pe: bp 92/60 mmhg, hr 73 mmhg, rr 16 bpm, O2 99% on RA, afebrile middle age lady lying in bed, anxious looking, a little tearful aaox3 lungs good bilateral air of entry s1, s2 rrr abdomen soft, non tender good strength in all extremities skin no rashes a/p: unresolved right pneumothorax: stable right apical pneumothorax, for VATS on wednesday or wednesday. UTI: continue ceftriaxone, no fever, continue ceftriaxone No need for further laboratory exams or change in management at this time cervical CA with mets to the lung, on monthly chemo as out patient CCU Objective - Vital Signs / Intake & Output Intake and Output (Last 8hrs): Intake & Output 07/03/16 07/04/16 07/04/16 22:59 06:59 14:59 Intake Total 320 200 0 Output Total 1220 850 0 Balance -900 -650 0 Weight 103 lb 14.4 oz Intake: Intake, IV Amount 100 Left Antecubital 100 Oral 220 200 0 Output: Urine 1220 850 0 Urine, Voided 1220 850 0 Other: # Voids Urine, Voided 1 - Physical Exam Head: Positive for: Atraumatic, Normocephalic Pupils: Positive for: PERRL Extroacular Muscles: Positive for: EOMI Conjunctiva: Positive for: Normal Mouth: Positive for: Moist Mucous Membranes Neck: Positive for: Normal Range of Motion Respiratory/Chest: Positive for: Good Air Exchange, Other (chest tube in place- connected to waterseal) Cardiovascular: Positive for: Normal S1, S2 Abdomen: Negative for: Tenderness, Distention Upper Extremity: Positive for: Normal Inspection Lower Extremity: Positive for: Normal Inspection Neurological: Positive for: CN II-XII Intact, Speech Normal Skin: Positive for: Warm, Dry Psychiatric: Positive for: Alert, Oriented x 3, Normal Insight, Normal Concentration - Medications Active Medications: Active Medications Generic Name Dose Route Start Last Admin Trade Name Freq PRN Reason Stop Dose Admin Acetaminophen/Butalbital/Caffeine 2 tab 07/02/16 14:54 07/04/16 08:31 Fioricet PO 2 tab Q6 PRN Administration Headache Alprazolam 0.5 mg 07/01/16 15:26 Xanax PO HS PRN Anxiety Docusate Sodium 100 mg 07/02/16 21:45 07/04/16 10:08 Colace PO 100 mg BID [facility] Administration Dronabinol 2.5 mg 07/01/16 18:00 07/04/16 10:08 Marinol PO 2.5 mg BID [facility] Administration Enoxaparin Sodium 30 mg 07/01/16 16:30 07/04/16 10:08 Lovenox SC 30 mg DAILY [facility] Administration Famotidine 20 mg 07/01/16 18:00 07/04/16 10:08 Pepcid PO 20 mg BID [facility] Administration Ceftriaxone Sodium 1 gm/ 100 mls @ 100 mls/hr 07/01/16 17:30 07/03/16 17:06 Sodium Chloride IVPB 100 mls/hr Q24H [facility] Administration Ibuprofen 400 mg 07/01/16 15:29 Motrin Tab PO Q6 PRN Pain, Mild (1-3) Morphine Sulfate 4 mg 07/04/16 09:13 07/04/16 10:09 Morphine IVP 4 mg Q4H PRN Administration Pain, moderate (4-7) Nicotine 1 patch 07/02/16 10:00 07/04/16 10:10 Nicoderm Cq TD 1 patch DAILY [facility] Administration Ondansetron HCl 4 mg 07/01/16 15:29 Zofran Inj IVP Q6 PRN Nausea/Vomiting Oxycodone/Acetaminophen 1 tab 07/02/16 01:45 07/03/16 22:54 Percocet 5/325 Mg Tab PO 07/05/16 01:46 1 tab Q4 PRN Administration - Patient Studies Lab Studies: Microbiology Studies 07/01/16 20:45 MRSA Culture (Admit) - Final Naris MRSA NOT DETECTED Lab Studies 07/04/16 07/04/16 Range/Units 06:34 04:00 WBC 7.8 (4.8-10.8) K/uL RBC 3.78 L (3.80-5.20) Mil/uL Hgb 11.5 (11.0-16.0) g/dL Hct 34.8 (34.0-47.0) % MCV 92.1 (81.0-99.0) fL MCH 30.5 (27.0-31.0) pg MCHC 33.2 (33.0-37.0) g/dL RDW 16.3 H (11.5-14.5) % Plt Count 278 (130-400) K/uL MPV 8.2 (7.2-11.7) fL Neut % (Auto) 66.4 (50.0-75.0) % Lymph % (Auto) 17.9 L (20.0-40.0) % Jay % (Auto) 8.7 (0.0-10.0) % Eos % (Auto) 6.6 H (0.0-4.0) % Baso % (Auto) 0.4 (0.0-2.0) % Neut # 5.2 (1.8-7.0) K/uL Lymph # 1.4 (1.0-4.3) K/uL Jay # 0.7 (0.0-0.8) K/uL Eos # 0.5 (0.0-0.7) K/uL Baso # 0.0 (0.0-0.2) K/uL Sodium 139 (132-148) mmol/L Potassium 4.2 (3.6-5.2) mmol/L Chloride 96 L (98-107) mmol/L Carbon Dioxide 27 (22-30) mmol/L Anion Gap 20 (10-20) BUN 18 H (7-17) mg/dL Creatinine 0.8 (0.7-1.2) MG/DL Est GFR ( Amer) > 60 Est GFR (Non-Af Amer) > 60 Random Glucose 94 (65-105) mg/dL Calcium 8.9 (8.6-10.4) mg/dl Phosphorus 4.2 (2.5-4.5) mg/dL Magnesium 1.7 (1.6-2.3) mg/dL Total Bilirubin 0.6 (0.2-1.3) mg/dL AST 21 (14-36) U/L ALT 24 (9-52) U/L Alkaline Phosphatase 100 (38-126) U/L Total Protein 7.3 (6.3-8.3) g/dL Albumin 3.8 (3.5-5.0) g/dL Globulin 3.5 (2.2-3.9) gm/dL Albumin/Globulin Ratio 1.1 (1.0-2.1) Laboratory Results - last 24 hr 07/04/16 07/04/16 04:00 06:34 WBC 7.8 RBC 3.78 L Hgb 11.5 Hct 34.8 MCV 92.1 MCH 30.5 MCHC 33.2 RDW 16.3 H Plt Count 278 MPV 8.2 Neut % (Auto) 66.4 Lymph % (Auto) 17.9 L Jay % (Auto) 8.7 Eos % (Auto) 6.6 H Baso % (Auto) 0.4 Neut # 5.2 Lymph # 1.4 Jay # 0.7 Eos # 0.5 Baso # 0.0 Sodium 139 Potassium 4.2 Chloride 96 L Carbon Dioxide 27 Anion Gap 20 BUN 18 H Creatinine 0.8 Est GFR ( Amer) > 60 Est GFR (Non-Af Amer) > 60 Random Glucose 94 Calcium 8.9 Phosphorus 4.2 Magnesium 1.7 Total Bilirubin 0.6 AST 21 ALT 24 Alkaline Phosphatase 100 Total Protein 7.3 Albumin 3.8 Globulin 3.5 Albumin/Globulin Ratio 1.1 Critical Care Progress Note - Nutrition Nutrition: Nutrition Category Date Time Status Regular Diet [DIET] Diets 07/01/16 Dinner Active
--- NOTE | 2016-07-04 15:25 | CP.PCM.PN ---
Subjective - Date & Time of Evaluation Date of Evaluation: 07/04/16 Time of Evaluation: 15:00 - Subjective Subjective: Patient earlier in the day was very anxious and in pain, by the time I saw her in the after noon she reported feeling better and less pain. CX-RAY this morning showed still had pneumothorax in the right apex present. She reported breathing seemed ok, + pain at the site of the chest tube, denied abominal pain, denied fever, denied headache. + anxious, + constipation Objective - Vital Signs/Intake and Output Vital Signs (last 24 hours): Temp Pulse Resp BP Pulse Ox 98.3 F 60 20 104/63 93 L 07/03/16 23:00 07/04/16 07:00 07/04/16 07:00 07/04/16 07:00 07/04/16 07:00 Intake and Output: 07/04/16 07/04/16 06:59 18:59 Intake Total 200 0 Output Total 1300 0 Balance -1100 0 - Medications Medications: Current Medications Acetaminophen/Butalbital/Caffeine (Fioricet) 2 tab PO Q6 PRN PRN Reason: Headache Last Admin: 07/04/16 08:31 Dose: 2 tab Alprazolam (Xanax) 0.5 mg PO HS PRN PRN Reason: Anxiety Docusate Sodium (Colace) 100 mg PO BID [facility] Last Admin: 07/04/16 10:08 Dose: 100 mg Dronabinol (Marinol) 2.5 mg PO BID [facility] Last Admin: 07/04/16 10:08 Dose: 2.5 mg Enoxaparin Sodium (Lovenox) 30 mg SC DAILY [facility] Last Admin: 07/04/16 10:08 Dose: 30 mg Famotidine (Pepcid) 20 mg PO BID [facility] Last Admin: 07/04/16 10:08 Dose: 20 mg Ceftriaxone Sodium 1 gm/ (Sodium Chloride) 100 mls @ 100 mls/hr IVPB Q24H [facility] Last Admin: 07/03/16 17:06 Dose: 100 mls/hr Ibuprofen (Motrin Tab) 400 mg PO Q6 PRN PRN Reason: Pain, Mild (1-3) Lactulose (Enulose) 20 gm PO ONCE ONE Stop: 07/04/16 15:23 Morphine Sulfate (Morphine) 4 mg IVP Q4H PRN PRN Reason: Pain, moderate (4-7) Last Admin: 07/04/16 14:30 Dose: 4 mg Nicotine (Nicoderm Cq) 1 patch TD DAILY [facility] Last Admin: 07/04/16 10:10 Dose: 1 patch Ondansetron HCl (Zofran Inj) 4 mg IVP Q6 PRN PRN Reason: Nausea/Vomiting Oxycodone/Acetaminophen (Percocet 5/325 Mg Tab) 1 tab PO Q4 PRN Stop: 07/05/16 01:46 Last Admin: 07/03/16 22:54 Dose: 1 tab - Labs Labs: 07/04/16 06:34 07/04/16 04:00 PT 12.2 SECONDS (9.7-12.2) 07/01/16 14:22 INR 1.1 07/01/16 14:22 APTT 32 SECONDS (21-34) 07/01/16 14:22 - Constitutional Appears: No Acute Distress, Chronically Ill - Head Exam Head Exam: NORMAL INSPECTION - Eye Exam Eye Exam: EOMI, Normal appearance - ENT Exam ENT Exam: Mucous Membranes Moist - Respiratory Exam Respiratory Exam: Decreased Breath Sounds Additional comments: Decreased breath sounds Rt - Cardiovascular Exam Cardiovascular Exam: REGULAR RHYTHM - GI/Abdominal Exam GI & Abdominal Exam: Soft, Normal Bowel Sounds - Neurological Exam Neurological Exam: Alert, Awake, Oriented x3 Neuro motor strength exam: Left Upper Extremity: 5, Right Upper Extremity: 5, Left Lower Extremity: 5, Right Lower Extremity: 5 - Psychiatric Exam Psychiatric exam: Anxious - Skin Skin Exam: Pallor, Pallor Assessment and Plan - Assessment and Plan (Free Text) Assessment: Pneumothorax, history of known metastic disease to the lung 07/04: The patient still has persisent right apex pneumothorax. For surgery eiwednesday or Monday 07/03: CT surgery evaluation, the concern is that the pneumothorax is not resolving. Patient is having trouble with low suctioning pressures with the chest tube. The concern is that removal of the tube will simply lead to the re- occurence of the pneumothorax. She will be pending a VATs wither Wednesday or Sunday 07/02 CXRAY showing improvment and patient reports still has some shortness of breath - but much better than previous. She wanted to know if she could go home tommorow because she thought she felt that good however we explained to her that this maybe too soon. Also I called the patient's PMD Dr Aubrey Underwood and updated her as well. UTI 07/04: Recheck UA U/A pos for 1+ LE, nitrates, 22 WBCs, 10 RBCs Rocephin Monitor Anxiety 07/04: Continue Xanax as needed 07/02: She wants to go home tomorrow - I explained to her that this is too soon and encouraged her to stay Re-start home med: Xanax 0.5mg HS Daily migraine headaches Re-start home med: Fioricet 2-4 tabs daily PRN Nicotine abuse Nicotine patch Cervical cancer s/p chemo/radiation with mets to Lungs currently on chemo- held x 1 mo due to dental work' 07/02: Per discussion with patient, she is getting chemo at three week intervals at [facility] Jeanne
--- NOTE | 2016-07-04 17:15 | CARD ---
APPROVED REPORT EXAM: Two-dimensional and M-mode echocardiogram with Doppler and color Doppler. Other Information Quality : AverageRhythm : NSR INDICATION cardiac eval, cervical ca, chemo, drug abuse abuse, pneumothorax pending surgery M-Mode DIMENSIONS RVDd1.35 (2.1-3.2cm)Left Atrium (MM)2.14 (2.5-4.0cm) IVSd0.51 (0.7-1.1cm)Aortic Root2.62 (2.2-3.7cm) LVDd4.65 (4.0-5.6cm)Aortic Cusp Exc.1.83 (1.5-2.0cm) PWd0.68 (0.7-1.1cm)FS (%) 46 % LVDs2.51 (2.0-3.8cm)LVEF (%)77 (>50%) Mitral Valve MV E Xvdpifbg75.6cm/sMV A Kqiirukw76.7cm/sE/A ratio1.3 TDI E/Lateral E'0.0E/Medial E'0.0 Tricuspid Valve TR Peak [id number]/sTR Peak [id number] LEFT VENTRICLE The left ventricle is normal size. There is normal left ventricular wall thickness. The left ventricular function is normal. The left ventricular ejection fraction is within the normal range. No regional wall motion abnormalities noted. The left ventricular diastolic function is normal. No left ventricle thrombus noted on this study. There is no ventricular septal defect visualized. There is no left ventricular aneurysm. There is no mass noted in the left ventricle. RIGHT VENTRICLE The right ventricle is normal size. There is normal right ventricular wall thickness. The right ventricular systolic function is normal. ATRIA The left atrium size is normal. The right atrium size is normal. The interatrial septum is intact with no evidence for an atrial septal defect. AORTIC VALVE The aortic valve is normal in structure and function. No aortic regurgitation is present. There is no aortic valvular stenosis. There is no aortic valvular vegetation. MITRAL VALVE The mitral valve is normal in structure and function. There is no evidence of mitral valve prolapse. There is no mitral valve stenosis. There is no mitral valve regurgitation noted. TRICUSPID VALVE The tricuspid valve is normal in structure and function. There is mild tricuspid regurgitation. NML PAP There is no tricuspid valve prolapse or vegetation. There is no tricuspid valve stenosis. PULMONIC VALVE The pulmonary valve is normal in structure and function. There is no pulmonic valvular regurgitation. There is no pulmonic valvular stenosis. GREAT VESSELS The aortic root is normal in size. The ascending aorta is normal in size. The pulmonary artery is normal. The IVC is normal in size and collapses >50% with inspiration. PERICARDIAL EFFUSION The pericardium appears normal. There is no pleural effusion. <Conclusion> The left ventricular ejection fraction is within the normal range. No regional wall motion abnormalities noted. The left ventricular diastolic function is normal. There is mild tricuspid regurgitation. NML PAP
[2016-07-05] MEDS: Apap-Butalbital-Caffeine 325-50-40mg Tab PO PRN (05:51)
[2016-07-05 06:45] LABS: BASO % 0.4 % (0.0-2.0); EOS # 0.4 K/uL (0.0-0.7); EOS % 4.6 % (0.0-4.0); HEMATOCRIT 34.3 % (34.0-47.0); LYMPH % 11.9 % (20.0-40.0); MEAN CELL VOLUME 91.6 fL (81.0-99.0); MEAN CORPUSCULAR HEMOGLOBIN 30.5 pg (27.0-31.0); MEAN CORPUSCULAR HGB CONC 33.3 g/dL (33.0-37.0); MEAN PLATELET VOLUME 7.9 fL (7.2-11.7); MONO # 0.7 K/uL (0.0-0.8); MONO % 7.8 % (0.0-10.0); RED CELL DISTRIBUTION WIDTH 16.3 % (11.5-14.5); WHITE BLOOD COUNT 8.5 K/uL (4.8-10.8)
[2016-07-05 06:48] LABS: RBC URINE 6 /hpf (0-3); URINE BACTERIA MANY (<OCC); URINE BILIRUBIN NEGATIVE (NEGATIVE); URINE BLOOD 2+ (NEGATIVE); URINE COLOR Yellow (YELLOW); URINE GLUCOSE (UA) NORMAL (Normal); URINE KETONE TRACE mg/dL (NEGATIVE); URINE LEUKOCYTE ESTERASE 3+ Leu/uL (Negative); URINE PROTEIN NEGATIVE (NEGATIVE); URINE UROBILINOGEN NORMAL mg/dL (0.2-1.0); WBC URINE 174 /hpf (0-5)
[2016-07-05 06:54] LABS: CHLORIDE 98 mmol/L (98-107); POTASSIUM 4.2 mmol/L (3.6-5.2); SODIUM 140 mmol/L (132-148)
[2016-07-05 06:56] LABS: AST/SGOT 73 U/L (14-36); BILIRUBIN,TOTAL 0.6 mg/dL (0.2-1.3); GFR AFRICAN-AMERICAN > 60
[2016-07-05 06:57] LABS: ALB/GLOB RATIO 1.1 (1.0-2.1); ALKALINE PHOSPHATASE 138 U/L (38-126); ALT/SGPT 80 U/L (9-52); BLOOD UREA NITROGEN 22 mg/dL (7-17); CALCIUM 8.8 mg/dl (8.6-10.4); CARBON DIOXIDE 24 mmol/L (22-30); GLUCOSE,RANDOM 124 mg/dL (65-105); TOTAL PROTEIN 7.3 g/dL (6.3-8.3)
--- NOTE | 2016-07-05 09:06 | CARD ---
APPROVED REPORT EKG Measurement Heart [id number] <Conclusion> Normal sinus rhythm Borderline ECG
[2016-07-05] MEDS: Enoxaparin 30 mg Syringe SC SCH (09:43)
[2016-07-05] MEDS ORDERED: POLYETHYLENE GLYCOL 3350 17 GM/Dose PACKET PO SCH (10:00)
--- NOTE | 2016-07-05 12:48 | RAD ---
HISTORY: pneumo, s/p chest tube COMPARISON: FINDINGS: LUNGS: Persistent tiny right apical pneumothorax with right chest tube projecting over the lateral aspect of the right apex. Chronic interstitial. Diffuse increased interstitial markings with some scattered nodularity. Lines and tubes in stable position. Small nodular density projecting the medial right lung apex. Additional small nodular density at the bilateral lung bases may represent nipple shadows. Additional small nodular density at the left upper lung zone. PLEURA: As above. CARDIOVASCULAR: Normal. OSSEOUS STRUCTURES: Persistent sclerotic lesion in the right proximal humerus. Persistent rounded lobulated radiopaque density seen projecting over the mid shaft of the right humerus with some extension into the soft tissues. VISUALIZED UPPER ABDOMEN: Normal. OTHER FINDINGS: None. IMPRESSION: No significant interval change.
--- NOTE | 2016-07-05 14:09 | CP.PCM.PN ---
Subjective - Date & Time of Evaluation Date of Evaluation: 07/05/16 Time of Evaluation: 08:00 - Subjective Subjective: THORACIC SURGERY PROGRESS NOTE FOR DR. SIMPSON Patient seen and examined at bedside in the ICU. She denies SOB but continues to have pain at the chest tube site. She states that she has not had a bowel movement in 4 days and is currently drinking lactulose. She states that her bowel movements are normally irregular but she wants to have a bowel movement before surgery. Objective - Vital Signs/Intake and Output Vital Signs (last 24 hours): Temp Pulse Resp BP Pulse Ox 97.8 F 72 22 112/72 98 07/05/16 12:00 07/05/16 14:00 07/05/16 14:00 07/05/16 13:46 07/05/16 14:00 Intake and Output: 07/05/16 07/05/16 06:59 18:59 Intake Total 150 0 Output Total 900 300 Balance -750 -300 - Medications Medications: Current Medications Acetaminophen/Butalbital/Caffeine (Fioricet) 2 tab PO Q6 PRN PRN Reason: Headache Last Admin: 07/05/16 05:51 Dose: 2 tab Alprazolam (Xanax) 0.5 mg PO HS PRN PRN Reason: Anxiety Docusate Sodium (Colace) 100 mg PO BID [facility] Last Admin: 07/05/16 09:44 Dose: 100 mg Dronabinol (Marinol) 2.5 mg PO BID [facility] Last Admin: 07/05/16 09:43 Dose: 2.5 mg Enoxaparin Sodium (Lovenox) 30 mg SC DAILY [facility] Last Admin: 07/05/16 09:43 Dose: 30 mg Famotidine (Pepcid) 20 mg PO BID [facility] Last Admin: 07/05/16 09:44 Dose: 20 mg Ceftriaxone Sodium 1 gm/ (Sodium Chloride) 100 mls @ 100 mls/hr IVPB Q24H [facility] Last Admin: 07/04/16 18:36 Dose: 100 mls/hr Morphine Sulfate (Morphine) 4 mg IVP Q4H PRN PRN Reason: Pain, moderate (4-7) Last Admin: 07/05/16 10:01 Dose: 4 mg Nicotine (Nicoderm Cq) 1 patch TD DAILY [facility] Last Admin: 07/05/16 09:44 Dose: 1 patch Polyethylene Glycol (Miralax) 17 gm PO DAILY [facility] Last Admin: 07/05/16 09:43 Dose: 17 gm - Labs Labs: 07/05/16 06:37 07/05/16 06:34 PT 12.2 SECONDS (9.7-12.2) 07/01/16 14:22 INR 1.1 07/01/16 14:22 APTT 32 SECONDS (21-34) 07/01/16 14:22 - Constitutional Appears: Non-toxic, No Acute Distress, Chronically Ill - Respiratory Exam Respiratory Exam: NORMAL BREATHING PATTERN. absent: Respiratory Distress Additional comments: Right chest tube in place on water seal Air leak present Dressing clean/dry/intact - Neurological Exam Neurological Exam: Alert, Awake, Oriented x3 - Psychiatric Exam Psychiatric exam: Normal Affect, Normal Mood - Skin Skin Exam: Dry, Normal Color, Warm Assessment and Plan - Assessment and Plan (Free Text) Assessment: 56yo F with cervical cancer with lung mets with spontaneous pneumothorax s/p right chest tube - Afebrile, VSS - Continue right chest tube to water seal - CXR this AM showed persistent tiny right apical pneumothorax - Will do Chest CT w/o contrast tomorrow AM - Patient tentatively scheduled for OR Tues for VATS - Discussed plan with Dr. Simpson and Dr. Jone Torres PGY-2
--- NOTE | 2016-07-05 15:30 | CP.CCUPN ---
CCU Subjective - Physician Review Events Since Last Encounter (Free Text): 07/05/16 15:28 Patient seen and examined this morning, stable, pain is controlled with current morphine management. Has not moved bowels in the last day. 10 ros asked and negative except for above pe: bp 103/65 mmhg, hr 75 mmhg, rr 21 bpm, O2 99% on RA, afebrile middle age lady sitting comfortable in chair [id number] lungs good bilateral air of entry s1, s2 rrr abdomen soft, non tender good strength in all extremities skin no rashes a/p: unresolved right pneumothorax: stable right apical pneumothorax, possibly for VATS on wednesday, will get CT scan in am. UTI: continue ceftriaxone for total of 7 days cervical CA with mets to the lung, on monthly chemo as out patient CCU Objective - Vital Signs / Intake & Output Vital Signs (Last 4 hours): Vital Signs Temp Pulse Resp BP Pulse Ox 07/05/16 14:00 72 22 98 07/05/16 13:46 73 22 112/72 98 07/05/16 13:01 73 21 97 07/05/16 12:46 68 19 109/67 99 07/05/16 12:00 97.8 F 73 23 97 07/05/16 11:46 69 18 111/61 Intake and Output (Last 8hrs): Intake & Output 07/05/16 07/05/16 07/05/16 06:59 14:59 22:59 Intake Total 150 0 Output Total 700 300 Balance -550 -300 Weight 103 lb 3.2 oz Intake: Oral 150 0 Output: Chest Tube Drainage 0 Right Upper Mid-Axillary 0 Chest Urine 700 300 Urine, Voided 700 300 Other: # Bowel Movements 0 0 - Physical Exam Head: Positive for: Atraumatic, Normocephalic Pupils: Positive for: PERRL Extroacular Muscles: Positive for: EOMI Conjunctiva: Positive for: Normal Mouth: Positive for: Moist Mucous Membranes Neck: Positive for: Normal Range of Motion Respiratory/Chest: Positive for: Good Air Exchange, Other (chest tube in place- connected to waterseal) Cardiovascular: Positive for: Normal S1, S2 Abdomen: Negative for: Tenderness, Distention Upper Extremity: Positive for: Normal Inspection Lower Extremity: Positive for: Normal Inspection Neurological: Positive for: CN II-XII Intact, Speech Normal Skin: Positive for: Warm, Dry Psychiatric: Positive for: Alert, Oriented x 3, Normal Insight, Normal Concentration - Medications Active Medications: Active Medications Generic Name Dose Route Start Last Admin Trade Name Freq PRN Reason Stop Dose Admin Acetaminophen/Butalbital/Caffeine 2 tab 07/02/16 14:54 07/05/16 05:51 Fioricet PO 2 tab Q6 PRN Administration Headache Alprazolam 0.5 mg 07/01/16 15:26 Xanax PO HS PRN Anxiety Docusate Sodium 100 mg 07/02/16 21:45 07/05/16 09:44 Colace PO 100 mg BID SOFIA Administration Dronabinol 2.5 mg 07/01/16 18:00 07/05/16 09:43 Marinol PO 2.5 mg BID SOFIA Administration Enoxaparin Sodium 30 mg 07/01/16 16:30 07/05/16 09:43 Lovenox SC 30 mg DAILY SOFIA Administration Famotidine 20 mg 07/01/16 18:00 07/05/16 09:44 Pepcid PO 20 mg BID SOFIA Administration Ceftriaxone Sodium 1 gm/ 100 mls @ 100 mls/hr 07/01/16 17:30 07/04/16 18:36 Sodium Chloride IVPB 100 mls/hr Q24H SOFIA Administration Morphine Sulfate 4 mg 07/04/16 09:13 07/05/16 15:15 Morphine IVP 4 mg Q4H PRN Administration Pain, moderate (4-7) Nicotine 1 patch 07/02/16 10:00 07/05/16 09:44 Nicoderm Cq TD 1 patch DAILY SOFIA Administration Polyethylene Glycol 17 gm 07/05/16 10:00 07/05/16 09:43 Miralax PO 17 gm DAILY SOFIA Administration - Patient Studies Lab Studies: Lab Studies 07/05/16 07/05/16 Range/Units 06:37 06:34 WBC 8.5 (4.8-10.8) K/uL RBC 3.74 L (3.80-5.20) Mil/uL Hgb 11.4 (11.0-16.0) g/dL Hct 34.3 (34.0-47.0) % MCV 91.6 (81.0-99.0) fL MCH 30.5 (27.0-31.0) pg MCHC 33.3 (33.0-37.0) g/dL RDW 16.3 H (11.5-14.5) % Plt Count 314 (130-400) K/uL MPV 7.9 (7.2-11.7) fL Neut % (Auto) 75.3 H (50.0-75.0) % Lymph % (Auto) 11.9 L (20.0-40.0) % [place] % (Auto) 7.8 (0.0-10.0) % Eos % (Auto) 4.6 H (0.0-4.0) % Baso % (Auto) 0.4 (0.0-2.0) % Neut # 6.4 (1.8-7.0) K/uL Lymph # 1.0 (1.0-4.3) K/uL [place] # 0.7 (0.0-0.8) K/uL Eos # 0.4 (0.0-0.7) K/uL Baso # 0.0 (0.0-0.2) K/uL Sodium 140 (132-148) mmol/L Potassium 4.2 (3.6-5.2) mmol/L Chloride 98 (98-107) mmol/L Carbon Dioxide 24 (22-30) mmol/L Anion Gap 22 H (10-20) BUN 22 H (7-17) mg/dL Creatinine 0.9 (0.7-1.2) MG/DL Est GFR ( Amer) > 60 Est GFR (Non-Af Amer) > 60 Random Glucose 124 H (65-105) mg/dL Calcium 8.8 (8.6-10.4) mg/dl Total Bilirubin 0.6 (0.2-1.3) mg/dL AST 73 H D (14-36) U/L ALT 80 H D (9-52) U/L Alkaline Phosphatase 138 H D (38-126) U/L Total Protein 7.3 (6.3-8.3) g/dL Albumin 3.8 (3.5-5.0) g/dL Globulin 3.5 (2.2-3.9) gm/dL Albumin/Globulin Ratio 1.1 (1.0-2.1) Urine Color Yellow (YELLOW) Urine Clarity Hazy (Clear) Urine pH 5.0 (5.0-8.0) Ur Specific Elsa 1.012 (1.003-1.030) Urine Protein Negative (NEGATIVE) mg/dL Urine Glucose (UA) Normal (Normal) mg/dL Urine Ketones Trace (NEGATIVE) mg/dL Urine Blood 2+ H (NEGATIVE) Urine Nitrate Negative (NEGATIVE) Urine Bilirubin Negative (NEGATIVE) Urine Urobilinogen Normal (0.2-1.0) mg/dL Ur Leukocyte Esterase 3+ H (Negative) [place]/uL Urine WBC (Auto) 174 H (0-5) /hpf Urine RBC (Auto) 6 H (0-3) /hpf Ur Squamous Epith Cells 1 (0-5) /hpf Urine Bacteria Many H (<OCC) Laboratory Results - last 24 hr 07/05/16 07/05/16 06:34 06:37 WBC 8.5 RBC 3.74 L Hgb 11.4 Hct 34.3 MCV 91.6 MCH 30.5 MCHC 33.3 RDW 16.3 H Plt Count 314 MPV 7.9 Neut % (Auto) 75.3 H Lymph % (Auto) 11.9 L [place] % (Auto) 7.8 Eos % (Auto) 4.6 H Baso % (Auto) 0.4 Neut # 6.4 Lymph # 1.0 [place] # 0.7 Eos # 0.4 Baso # 0.0 Sodium 140 Potassium 4.2 Chloride 98 Carbon Dioxide 24 Anion Gap 22 H BUN 22 H Creatinine 0.9 Est GFR ( Amer) > 60 Est GFR (Non-Af Amer) > 60 Random Glucose 124 H Calcium 8.8 Total Bilirubin 0.6 AST 73 H D ALT 80 H D Alkaline Phosphatase 138 H D Total Protein 7.3 Albumin 3.8 Globulin 3.5 Albumin/Globulin Ratio 1.1 Urine Color Yellow Urine Clarity Hazy Urine pH 5.0 Ur Specific Elsa 1.012 Urine Protein Negative Urine Glucose (UA) Normal Urine Ketones Trace Urine Blood 2+ H Urine Nitrate Negative Urine Bilirubin Negative Urine Urobilinogen Normal Ur Leukocyte Esterase 3+ H Urine WBC (Auto) 174 H Urine RBC (Auto) 6 H Ur Squamous Epith Cells 1 Urine Bacteria Many H Critical Care Progress Note - Nutrition Nutrition: Nutrition Category Date Time Status Regular Diet [DIET] Diets 07/01/16 Dinner Active
[2016-07-06] MEDS: Apap-Butalbital-Caffeine 325-50-40mg Tab PO PRN ×2 (02:30→17:49)
--- NOTE | 2016-07-06 08:53 | CP.PCM.PN ---
Subjective - Date & Time of Evaluation Date of Evaluation: 07/06/16 Time of Evaluation: 08:45 - Subjective Subjective: Medical Attending Note: Follow-up: Pneumothorax, Urinary Tract Infection, Anxiety, Migraine headache, Nictone abuse, and hx of cervical cancer, and secondary lung cancer Patient seen and examined at bedside. Patient reports she has had a bowel movement yesterday. Patient denies headache , denies chest pain, denies shortness of breathe, denies cough, denies abdominal pain, denies nausea, denies vomiting, denies dysuria, and had a bowel movement. Patient reports she was out of bed yesterday. Objective - Vital Signs/Intake and Output Vital Signs (last 24 hours): Temp Pulse Resp BP Pulse Ox 100.2 F H 79 15 100/63 95 07/05/16 20:00 07/06/16 07:00 07/06/16 07:00 07/06/16 06:46 07/06/16 06:46 Intake and Output: 07/06/16 07/06/16 06:59 18:59 Intake Total 50 0 Output Total 551 Balance -501 0 - Medications Medications: Current Medications Acetaminophen/Butalbital/Caffeine (Fioricet) 2 tab PO Q6 PRN PRN Reason: Headache Last Admin: 07/06/16 02:30 Dose: 2 tab Alprazolam (Xanax) 0.5 mg PO HS PRN PRN Reason: Anxiety Docusate Sodium (Colace) 100 mg PO BID [facility] Last Admin: 07/05/16 17:49 Dose: 100 mg Dronabinol (Marinol) 2.5 mg PO BID [facility] Last Admin: 07/05/16 17:49 Dose: 2.5 mg Enoxaparin Sodium (Lovenox) 30 mg SC DAILY [facility] Last Admin: 07/05/16 09:43 Dose: 30 mg Famotidine (Pepcid) 20 mg PO BID [facility] Last Admin: 07/05/16 17:49 Dose: 20 mg Ceftriaxone Sodium 1 gm/ (Sodium Chloride) 100 mls @ 100 mls/hr IVPB Q24H [facility] Last Admin: 07/05/16 17:50 Dose: 100 mls/hr Morphine Sulfate (Morphine) 4 mg IVP Q4H PRN PRN Reason: Pain, moderate (4-7) Last Admin: 07/06/16 08:35 Dose: 4 mg Nicotine (Nicoderm Cq) 1 patch TD DAILY [facility] Last Admin: 07/05/16 09:44 Dose: 1 patch Polyethylene Glycol (Miralax) 17 gm PO DAILY [facility] Last Admin: 07/05/16 09:43 Dose: 17 gm - Labs Labs: 07/05/16 06:37 07/05/16 06:34 PT 12.2 SECONDS (9.7-12.2) 07/01/16 14:22 INR 1.1 07/01/16 14:22 APTT 32 SECONDS (21-34) 07/01/16 14:22 - Constitutional Appears: Non-toxic, No Acute Distress, Cachectic - Head Exam Head Exam: NORMAL INSPECTION - Eye Exam Eye Exam: EOMI - ENT Exam ENT Exam: Mucous Membranes Moist - Respiratory Exam Respiratory Exam: NORMAL BREATHING PATTERN. absent: Rales, Rhonchi, Wheezes, Respiratory Distress Additional comments: chest tube (1) right sided; clean/dry/intact - Cardiovascular Exam Cardiovascular Exam: RRR, +S1, +S2 - GI/Abdominal Exam GI & Abdominal Exam: Soft, Normal Bowel Sounds. absent: Distended, Firm, Guarding, Rigid, Tenderness, Rebound - Extremities Exam Extremities Exam: absent: Pedal Edema, Tenderness - Back Exam Back Exam: absent: CVA tenderness (L), CVA tenderness (R) - Neurological Exam Neurological Exam: Alert, Awake, Oriented x3 - Psychiatric Exam Psychiatric exam: Normal Affect, Normal Mood - Skin Skin Exam: Dry, Normal Color, Warm Assessment and Plan (1) Pneumothorax Status: Acute (2) Urinary tract infection Status: Acute (3) Anxiety Status: Chronic (4) Migraine Status: Chronic (5) Nicotine abuse Status: Chronic (6) Cervical cancer Status: Chronic (7) Prophylactic measure Status: Acute - Assessment and Plan (Free Text) Assessment: Pneumothorax * CT Chest (07/03/16): re-demonstrated is in situ right sided chest tube, small residual right sided pneumothorax markedly decreased from prior chest radiographs however only slight decreased from prior chest CT scan. Multiple varying sized rounded solid and cavitary lesions seen scattered throughout the upper and lower lobes bilaterally. Rule out metastatic disease versus infectious ; small calcficied mediastinal lymph nodes small calcification with splenc parenchyma which are consistent with prior exposure to granulomatous disease process * Pending repeat Chest CT today * Possible surgery for Wednesday pending result * Ordered for cardiac clearance for possible surgery (Dr. Cox regional maintenance manager) * Patient has one chest tube right sided on water seal * Pending read of chest xrays today * Consult CT surgery (Dr. Palmer) on the case help appreciated * Echocardiogram (07/04/16): left ventricular ejection fraction is within the normal range. No regional wall motion abnormalites noted. left ventricular diastolic function is normal. mild tricupsid regurgitation. Urinary Tract Infection * Pending urine culture today * Florastor 250mg PO bid * Rocephin 1 gram IV daily (active since 07/01/16) Anxiety * Xanax 0.5mg PO PRN * History of Migraine headaches * History of * Fioricet 2 tab PO Q 6 hour PRN Nicotine abuse * Nicotine patch transdermal daily Cervical cancer s/p chemo/radiation with mets to Lungs currently on chemo- held x 1 mo due to dental work' * heme-onc at [facility] * Goes for chemo once a month Prophylactic measure * held lovenox in anticipation for possible surgery tomorrow * pepcid 20mg PO bid * FLorastor 250mg PO bid * Morphine 4mg IV 4 PRN pain
[2016-07-06 09:35] LABS: BASO % 0.5 % (0.0-2.0); EOS # 0.4 K/uL (0.0-0.7); EOS % 4.2 % (0.0-4.0); HEMATOCRIT 33.4 % (34.0-47.0); LYMPH # 0.9 K/uL (1.0-4.3); LYMPH % 9.9 % (20.0-40.0); MEAN CELL VOLUME 91.5 fL (81.0-99.0); MEAN CORPUSCULAR HEMOGLOBIN 30.1 pg (27.0-31.0); MEAN CORPUSCULAR HGB CONC 32.9 g/dL (33.0-37.0); MEAN PLATELET VOLUME 7.7 fL (7.2-11.7); MONO # 0.8 K/uL (0.0-0.8); MONO % 9.7 % (0.0-10.0); PLATELET COUNT 305 K/uL (130-400); RED CELL DISTRIBUTION WIDTH 16.3 % (11.5-14.5); WHITE BLOOD COUNT 8.7 K/uL (4.8-10.8)
[2016-07-06 09:38] LABS: CHLORIDE 95 mmol/L (98-107); POTASSIUM 4.5 mmol/L (3.6-5.2); SODIUM 135 mmol/L (132-148)
[2016-07-06 09:40] LABS: ALB/GLOB RATIO 1.1 (1.0-2.1); ALKALINE PHOSPHATASE 153 U/L (38-126); AST/SGOT 97 U/L (14-36); BILIRUBIN,TOTAL 0.7 mg/dL (0.2-1.3); BLOOD UREA NITROGEN 17 mg/dL (7-17); CARBON DIOXIDE 26 mmol/L (22-30); GFR AFRICAN-AMERICAN > 60; INR 1.1; TOTAL PROTEIN 7.4 g/dL (6.3-8.3)
[2016-07-06 09:41] LABS: ALT/SGPT 125 U/L (9-52); CALCIUM 8.9 mg/dl (8.6-10.4); GLUCOSE,RANDOM 118 mg/dL (65-105); MAGNESIUM 1.8 mg/dL (1.6-2.3)
[2016-07-06] MEDS: Saccharomyces Boulardi 250 mg Cap PO SCH ×2 (09:47→17:49)
[2016-07-06 09:59] LABS: EOSINOPHIL 3 % (0-4); NEUTROPHIL 68 % (50-75); REACTIVE LYMPHOCYTES 1 % (0-0); TOTAL CELLS COUNTED 100
--- NOTE | 2016-07-06 10:35 | RAD ---
HISTORY: pneumo, s/p chest tube COMPARISON: 07/05/2016 FINDINGS: LUNGS: Persistent tiny right apical pneumothorax with right chest tube in place. Scattered nodularity at the lung bases. Bibasilar breast and nipple shadows. Lines and tubes stable position. Bibasilar atelectasis. PLEURA: No significant pleural effusion identified, no pneumothorax apparent. CARDIOVASCULAR: Normal. OSSEOUS STRUCTURES: Somewhat ill-defined sclerotic density projecting over the right proximal humerus. Several left-sided rib fracture deformities. VISUALIZED UPPER ABDOMEN: Curvilinear lucency at the right hemidiaphragm, nonspecific. Correlation with dedicated plain film of the abdomen may be helpful if clinically indicated if there is concern for possible free intraperitoneal air. Alternatively, this may represent atelectasis. OTHER FINDINGS: None. IMPRESSION: Persistent tiny right apical pneumothorax with right chest tube in place. Scattered nodularity at the lung bases. Bibasilar breast and nipple shadows. Lines and tubes stable position. Bibasilar atelectasis. Curvilinear lucency at the right hemidiaphragm, nonspecific. Correlation with dedicated plain film of the abdomen may be helpful if clinically indicated if there is concern for possible free intraperitoneal air. Alternatively, this may represent atelectasis.
--- NOTE | 2016-07-06 12:03 | CP.PCM.PN ---
Subjective - Date & Time of Evaluation Date of Evaluation: 07/06/16 Time of Evaluation: 07:30 - Subjective Subjective: CT Surgery: Dr. Palmer Pt S&E this AM. NAEO. Patient denies fever/chills. Denies chest pain/ SOB. Persistent R apical pneumo on CXR. Objective - Vital Signs/Intake and Output Vital Signs (last 24 hours): Temp Pulse Resp BP Pulse Ox 99.0 F 82 17 98/53 L 95 07/06/16 08:00 07/06/16 11:00 07/06/16 11:00 07/06/16 10:46 07/06/16 11:00 Intake and Output: 07/06/16 07/06/16 06:59 18:59 Intake Total 50 300 Output Total 551 250 Balance -501 50 - Medications Medications: Current Medications Acetaminophen/Butalbital/Caffeine (Fioricet) 2 tab PO Q6 PRN PRN Reason: Headache Last Admin: 07/06/16 02:30 Dose: 2 tab Alprazolam (Xanax) 0.5 mg PO HS PRN PRN Reason: Anxiety Docusate Sodium (Colace) 100 mg PO BID [facility] Last Admin: 07/06/16 09:48 Dose: Not Given Dronabinol (Marinol) 2.5 mg PO BID [facility] Last Admin: 07/06/16 09:46 Dose: 2.5 mg Famotidine (Pepcid) 20 mg PO BID [facility] Last Admin: 07/06/16 09:46 Dose: 20 mg Ceftriaxone Sodium 1 gm/ (Sodium Chloride) 100 mls @ 100 mls/hr IVPB Q24H [facility] Last Admin: 07/05/16 17:50 Dose: 100 mls/hr Morphine Sulfate (Morphine) 4 mg IVP Q4H PRN PRN Reason: Pain, moderate (4-7) Last Admin: 07/06/16 08:35 Dose: 4 mg Nicotine (Nicoderm Cq) 1 patch TD DAILY [facility] Last Admin: 07/06/16 09:46 Dose: 1 patch Saccharomyces Boulardii (Florastor) 250 mg PO BID [facility] Last Admin: 07/06/16 09:47 Dose: 250 mg - Labs Labs: 07/06/16 09:26 07/06/16 09:26 PT 12.9 SECONDS (9.7-12.2) H 07/06/16 09:26 INR 1.1 07/06/16 09:26 APTT 32 SECONDS (21-34) 07/01/16 14:22 - Constitutional Appears: Cachectic - Head Exam Head Exam: NORMOCEPHALIC - Eye Exam Eye Exam: Normal appearance - ENT Exam ENT Exam: Mucous Membranes Moist - Respiratory Exam Respiratory Exam: absent: Accessory Muscle Use - Cardiovascular Exam Cardiovascular Exam: +S1, +S2 - GI/Abdominal Exam GI & Abdominal Exam: Soft - Neurological Exam Neurological Exam: Alert, Awake, Oriented x3 - Psychiatric Exam Psychiatric exam: Normal Mood - Skin Skin Exam: Normal Color, Warm Assessment and Plan - Assessment and Plan (Free Text) Assessment: 56Fwith cervical CA with lung mets with spontaneous pneumothorax s/p right chest tube day#5 - Continue right chest tube to water seal - CXR shows persistent right apical pneumothorax - F/u CT chest - Patient tentatively scheduled for OR Tues for VATS - Dw Dr. Palmer
--- NOTE | 2016-07-06 12:18 | CP.PCM.CON ---
<Serafin Miller - Last Filed: 07/06/16 12:04> History of Present Illness - History of Present Illness History of Present Illness: Cardiology Consultation Note Dr. Cox CC: Cardiac Risk Assessment and Stratification HPI: This is a 56 year old female with a PMH notable for cervical CA (s/p chemo/ radiation) with metastasis to lung presenting for cardiac evaluation risk assessment of pneumothorax of right lung. The patient is undergoing current treatment with chemotherapy for her metastatic disease which has been held for the last month for dental work. The patient's pneumothorax is currently being managed with a chest tube (water seal) with a tentative OR date of Wednesday for VATS procedure with Dr. Palmer. The patient had CT chest w/o contrast this morning. Presently, the patient denies headache, denies chest pain, denies shortness of breathe, denies cough, denies abdominal pain, denies nausea, denies vomiting, denies dysuria, and had a bowel movement. PMH: Cervical cancer with metastasis to lungs PSH: dental work, radiation surgery for cervical tumor All: NKDA SH: 1/2 ppd cigarettes x 30 yrs, occasional ETOH use, denies illicit drug use PMD: [facility] Outpt onc: Dr. Penny at [facility]: [facility] in [place] on Review of Systems - Constitutional Constitutional: absent: Chills, Fatigue, Fever - EENT Eyes: absent: Blind Spots, Blurred Vision, Change in Vision Ears: absent: Decreased Hearing, Tinnitus Nose/Mouth/Throat: absent: Epistaxis, Nasal Congestion, Facial Pain, Neck Pain - Cardiovascular Cardiovascular: absent: Chest Pain, Edema, Lightheadedness, Palpitations, Syncope - Respiratory Respiratory: absent: Cough, Dyspnea, Wheezing, Pain on Inspiration Additional comments: Chest Tube in Place - Gastrointestinal Gastrointestinal: absent: Abdominal Pain, Constipation, Diarrhea, Nausea, Vomiting - Genitourinary Genitourinary: absent: Change in Urinary Stream, Difficulty Urinating - Musculoskeletal Musculoskeletal: absent: Abnormal Gait, Back Pain, Deformity, Muscle Cramps, Neck Pain - Integumentary Integumentary: absent: Lesions, Rash, Wounds - Neurological Neurological: absent: Numbness, Focal Weakness, Memory Loss, Paresthesias, Sensory Deficit, Syncope, Weakness - Endocrine Endocrine: absent: Cold Intolorance, Heat Intolorance Past Patient History - Infectious Disease Hx of Infectious Diseases: None - Past Medical History & Family History Past Medical History?: Yes - Past Social History Smoking Status: Light Smoker < 10 Cigarettes Daily - PULMONARY Hx Lung Cancer: Yes - HEMATOLOGICAL/ONCOLOGICAL Hx Cancer: Yes (Cervical) - MUSCULOSKELETAL/RHEUMATOLOGICAL Hx Falls: Yes - GENITOURINARY/GYNECOLOGICAL Hx Cervical Cancer: Yes - PSYCHIATRIC Hx Depression: Yes Hx Substance Use: No - SURGICAL HISTORY Other/Comment: Left Subclavian port insertion; 4 rounds of brachytherapy. - ANESTHESIA Hx Anesthesia: Yes Hx Anesthesia Reactions: No Hx Malignant Hyperthermia: No Meds Allergies/Adverse Reactions: Allergies Allergy/AdvReac Type Severity Reaction Status Date / Time No Known Allergies Allergy Verified 07/01/16 12:42 - Medications Medications: Current Medications Acetaminophen/Butalbital/Caffeine (Fioricet) 2 tab PO Q6 PRN PRN Reason: Headache Last Admin: 07/06/16 02:30 Dose: 2 tab Alprazolam (Xanax) 0.5 mg PO HS PRN PRN Reason: Anxiety Docusate Sodium (Colace) 100 mg PO BID [facility] Last Admin: 07/06/16 09:48 Dose: Not Given Dronabinol (Marinol) 2.5 mg PO BID [facility] Last Admin: 07/06/16 09:46 Dose: 2.5 mg Famotidine (Pepcid) 20 mg PO BID [facility] Last Admin: 07/06/16 09:46 Dose: 20 mg Ceftriaxone Sodium 1 gm/ (Sodium Chloride) 100 mls @ 100 mls/hr IVPB Q24H [facility] Last Admin: 07/05/16 17:50 Dose: 100 mls/hr Morphine Sulfate (Morphine) 4 mg IVP Q4H PRN PRN Reason: Pain, moderate (4-7) Last Admin: 07/06/16 08:35 Dose: 4 mg Nicotine (Nicoderm Cq) 1 patch TD DAILY [facility] Last Admin: 07/06/16 09:46 Dose: 1 patch Saccharomyces Boulardii (Florastor) 250 mg PO BID [facility] Last Admin: 07/06/16 09:47 Dose: 250 mg Physical Exam - Constitutional Appears: Well, No Acute Distress - Head Exam Head Exam: ATRAUMATIC, NORMAL INSPECTION, NORMOCEPHALIC - Eye Exam Eye Exam: EOMI, Normal appearance, PERRL Pupil Exam: NORMAL ACCOMODATION - ENT Exam ENT Exam: Mucous Membranes Moist, Normal Exam - Neck Exam Neck exam: Positive for: Normal Inspection. Negative for: Lymphadenopathy, Meningismus, Thyromegaly - Respiratory Exam Respiratory Exam: Clear to Auscultation Bilateral, NORMAL BREATHING PATTERN. absent: Accessory Muscle Use, Rales, Rhonchi, Wheezes - Cardiovascular Exam Cardiovascular Exam: REGULAR RHYTHM, RRR, +S1, +S2. absent: Diastolic murmur, Systolic Murmur - GI/Abdominal Exam GI & Abdominal Exam: Normal Bowel Sounds, Soft. absent: Distended, Firm, Guarding, Rebound, Rigid, Tenderness - Extremities Exam Extremities exam: Positive for: full ROM, normal capillary refill, normal inspection, pedal pulses present. Negative for: joint swelling, pedal edema - Neurological Exam Neurological exam: Alert, CN II-XII Intact, Normal Gait, Oriented x3 - Psychiatric Exam Psychiatric exam: Normal Affect, Normal Mood - Skin Skin Exam: Dry, Intact, Normal Color, Warm Results - Vital Signs Recent Vital Signs: Last Vital Signs Temp 99.0 F 07/06/16 08:00 Pulse 82 07/06/16 11:00 Resp 17 07/06/16 11:00 BP 98/53 L 07/06/16 10:46 Pulse Ox 95 07/06/16 11:00 - Labs Result Diagrams: 07/06/16 09:26 07/06/16 09:26 Labs: Laboratory Results - last 24 hr 07/06/16 09:26 WBC 8.7 RBC 3.65 L Hgb 11.0 Hct 33.4 L MCV 91.5 MCH 30.1 MCHC 32.9 L RDW 16.3 H Plt Count 305 MPV 7.7 Neut % (Auto) 75.7 H Lymph % (Auto) 9.9 L [place] % (Auto) 9.7 Eos % (Auto) 4.2 H Baso % (Auto) 0.5 Neut # 6.6 Lymph # 0.9 L [place] # 0.8 Eos # 0.4 Baso # 0.0 Neutrophils % (Manual) 68 Band Neutrophils % 9 H Lymphocytes % (Manual) 13 L Reactive Lymphs % 1 H Monocytes % (Manual) 6 Eosinophils % (Manual) 3 Platelet Estimate Normal Anisocytosis (manual) Slight PT 12.9 H INR 1.1 Sodium 135 Potassium 4.5 Chloride 95 L Carbon Dioxide 26 Anion Gap 19 BUN 17 Creatinine 0.9 Est GFR ( Amer) > 60 Est GFR (Non-Af Amer) > 60 Random Glucose 118 H Calcium 8.9 Magnesium 1.8 Total Bilirubin 0.7 AST 97 H D ALT 125 H D Alkaline Phosphatase 153 H Total Protein 7.4 Albumin 3.8 Globulin 3.6 Albumin/Globulin Ratio 1.1 Assessment & Plan - Assessment and Plan (Free Text) Assessment: This is a 56 year old female with a PMH notable for cervical CA (s/p chemo/ radiation) with metastasis to lung presenting for cardiac evaluation risk assessment of pneumothorax of right lung. Plan: 1.) Right Lung Pneumothorax - Cardiac Risk Assessment - Detsky Score= Class I (low risk) - De Score= Class II (moderate risk) - Franky Score= Class II (low risk) - Hemodynamically stable at this time - Low cardiac risk for VATS procedure - Pre-operative beta gloria as indicated - Continue with Chest Tube on water seal per surgery team - 07/06/16 CXR- persistent apical pneumothoarx - 07/06/16 CT Chest- apical pneumothoarx - 07/01/16 Echo- LVEF 77% - 07/01/16 EKG- NSR, normal axis, normal intervals, no ST-T wave changes - Troponins and CKMB negative on admission 2.) Nicotine Dependence - recommend smoking cessation - continue nicotine patch Case Discussed with Dr. Kenny Miller PGY1 - Date & Time Date: 07/06/16 Time: 12:34 <Jose Cox - Last Filed: 08/10/16 10:33> Results - Vital Signs Recent Vital Signs: Last Vital Signs Temp 98.6 F 07/07/16 12:00 Pulse 79 07/07/16 13:02 Resp 18 07/07/16 13:02 BP 96/59 L 07/07/16 11:46 Pulse Ox 98 07/10/16 18:17 - Labs Result Diagrams: 07/07/16 06:15 07/07/16 06:15 Attending/Attestation - Attestation I have personally seen and examined this patient.: Yes I have fully participated in the care of the patient.: Yes I have reviewed all pertinent clinical information: Yes Notes (Text): 08/10/16 10:33 pt may proceed to VATS EF 77 percent
--- NOTE | 2016-07-06 12:19 | CP.PCM.PN ---
Subjective - Date & Time of Evaluation Date of Evaluation: 07/06/16 Time of Evaluation: 09:15 - Subjective Subjective: Patient seen and examined laying in bed. Patient offers no acute complaints. No acute events per nursing. Denies chest pain, dyspnea, orthopnea, cough, nausea, vomiting, and abdominal pain. Objective - Vital Signs/Intake and Output Vital Signs (last 24 hours): Temp Pulse Resp BP Pulse Ox 99.0 F 82 17 98/53 L 95 07/06/16 08:00 07/06/16 11:00 07/06/16 11:00 07/06/16 10:46 07/06/16 11:00 Intake and Output: 07/06/16 07/06/16 06:59 18:59 Intake Total 50 300 Output Total 551 250 Balance -501 50 - Medications Medications: Current Medications Acetaminophen/Butalbital/Caffeine (Fioricet) 2 tab PO Q6 PRN PRN Reason: Headache Last Admin: 07/06/16 02:30 Dose: 2 tab Alprazolam (Xanax) 0.5 mg PO HS PRN PRN Reason: Anxiety Docusate Sodium (Colace) 100 mg PO BID [facility] Last Admin: 07/06/16 09:48 Dose: Not Given Dronabinol (Marinol) 2.5 mg PO BID [facility] Last Admin: 07/06/16 09:46 Dose: 2.5 mg Famotidine (Pepcid) 20 mg PO BID [facility] Last Admin: 07/06/16 09:46 Dose: 20 mg Ceftriaxone Sodium 1 gm/ (Sodium Chloride) 100 mls @ 100 mls/hr IVPB Q24H [facility] Last Admin: 07/05/16 17:50 Dose: 100 mls/hr Morphine Sulfate (Morphine) 4 mg IVP Q4H PRN PRN Reason: Pain, moderate (4-7) Last Admin: 07/06/16 08:35 Dose: 4 mg Nicotine (Nicoderm Cq) 1 patch TD DAILY [facility] Last Admin: 07/06/16 09:46 Dose: 1 patch Saccharomyces Boulardii (Florastor) 250 mg PO BID [facility] Last Admin: 07/06/16 09:47 Dose: 250 mg - Labs Labs: 07/06/16 09:26 07/06/16 09:26 PT 12.9 SECONDS (9.7-12.2) H 07/06/16 09:26 INR 1.1 07/06/16 09:26 APTT 32 SECONDS (21-34) 07/01/16 14:22 - Constitutional Appears: Non-toxic, No Acute Distress, Cachectic - Head Exam Head Exam: ATRAUMATIC, NORMOCEPHALIC - Eye Exam Eye Exam: Normal appearance Pupil Exam: NORMAL ACCOMODATION - ENT Exam ENT Exam: Mucous Membranes Moist - Neck Exam Neck Exam: Full ROM, Normal Inspection - Respiratory Exam Respiratory Exam: Decreased Breath Sounds, Wheezes, NORMAL BREATHING PATTERN. absent: Accessory Muscle Use, Rales, Rhonchi Additional comments: CT in place in right side. Dressing is C/D/I. Chamber is to water seal without leak when coughing. - Cardiovascular Exam Cardiovascular Exam: REGULAR RHYTHM, +S1, +S2. absent: Tachycardia, Gallop, JVD , Rubs, Murmur - GI/Abdominal Exam GI & Abdominal Exam: Soft, Normal Bowel Sounds. absent: Tenderness - Extremities Exam Extremities Exam: Full ROM - Back Exam Back Exam: NORMAL INSPECTION - Neurological Exam Neurological Exam: Alert, Awake - Psychiatric Exam Psychiatric exam: Anxious, Normal Affect - Skin Skin Exam: Intact, Normal Color, Warm Assessment and Plan - Assessment and Plan (Free Text) Assessment: Spontaneous right pneumothorax Plan: Chest tube on waterseal since 07/01 evening due to desaturation on wall suction. Air leak is present in lung. Rupture of bleb vs. metastatic mass damage to pleura as source. Dr. Palmer has recommended VATS to evaluate airleak and pleurodesis. Tentative surgery Wednesday07/07/16. F/u if recommendations remain same after repeat CT scan this morning. CT non-contrast 07/06/16 continues to show residual right pneumothorax with chest tube in place on waterseal. CXR 07/06/16 shows Persistent tiny right apical pneumothorax with right chest tube in place. Repeat CT 07/03/16 showed a small residual right-sided pneumothorax markedly decreased from prior chest radiographs.There are multiple varying sized rounded solid and cavitary lesions seen scattered throughout the upper and lower lobes bilaterally.
--- NOTE | 2016-07-06 12:31 | CP.CCUPN ---
CCU Subjective - Physician Review Subjective (Free Text): 07/06/16 12:28 Pt seen and examined at bedside. She is in no acute distress. Nursing reports no acute events overnight. She reports continued pain at the tube site, and admits to anxiety about the possibility of surgery tomorrow. She is for cat scan today. She denies any SOB or chest pain at this time. She further denies subjective fevers or chills, dyspnea, nausea, vomiting, diarrhea, constipation, headaches or paresthesias at this time. Critical Care Time Spent (in minutes): 45 CCU Objective - Vital Signs / Intake & Output Vital Signs (Last 4 hours): Vital Signs Pulse Resp BP Pulse Ox 07/06/16 11:00 82 17 95 07/06/16 10:46 75 18 98/53 L 97 07/06/16 10:00 70 20 97 07/06/16 09:46 79 20 106/63 96 07/06/16 09:02 70 22 98 07/06/16 09:00 69 17 96 07/06/16 08:46 75 13 102/57 L 90 L Intake and Output (Last 8hrs): Intake & Output 07/05/16 07/06/16 07/06/16 22:59 06:59 14:59 Intake Total 200 50 300 Output Total 561 250 250 Balance -361 -200 50 Weight 96 lb Intake: Intake, IV Amount 0 Right Forearm 0 Oral 200 50 300 Output: Chest Tube Drainage 0 0 Right Upper Mid-Axillary 0 0 Chest Urine 560 250 250 Urine, Voided 560 250 250 Urine/Stool Mix 1 Emesis 0 Other: # Voids Urine, Voided 0 # Bowel Movements 1 0 - Physical Exam Head: Positive for: Atraumatic, Normocephalic Pupils: Positive for: PERRL Extroacular Muscles: Positive for: EOMI Conjunctiva: Positive for: Normal Mouth: Positive for: Moist Mucous Membranes Neck: Positive for: Normal Range of Motion Respiratory/Chest: Positive for: Clear to Auscultation, Good Air Exchange, Other (chest tube in place- connected to waterseal). Negative for: Respiratory Distress, Accessory Muscle Use Cardiovascular: Positive for: Normal S1, S2 Abdomen: Negative for: Tenderness, Distention Upper Extremity: Positive for: Normal Inspection Lower Extremity: Positive for: Normal Inspection Neurological: Positive for: CN II-XII Intact, Speech Normal Skin: Positive for: Warm, Dry Psychiatric: Positive for: Alert, Oriented x 3, Normal Insight, Normal Concentration - Medications Active Medications: Active Medications Generic Name Dose Route Start Last Admin Trade Name Freq PRN Reason Stop Dose Admin Acetaminophen/Butalbital/Caffeine 2 tab 07/02/16 14:54 07/06/16 02:30 Fioricet PO 2 tab Q6 PRN Administration Headache Alprazolam 0.5 mg 07/01/16 15:26 Xanax PO HS PRN Anxiety Docusate Sodium 100 mg 07/02/16 21:45 07/06/16 09:48 Colace PO Not Given BID [facility] Dronabinol 2.5 mg 07/01/16 18:00 07/06/16 09:46 Marinol PO 2.5 mg BID [facility] Administration Famotidine 20 mg 07/01/16 18:00 07/06/16 09:46 Pepcid PO 20 mg BID [facility] Administration Ceftriaxone Sodium 1 gm/ 100 mls @ 100 mls/hr 07/01/16 17:30 07/05/16 17:50 Sodium Chloride IVPB 100 mls/hr Q24H [facility] Administration Morphine Sulfate 4 mg 07/04/16 09:13 07/06/16 08:35 Morphine IVP 4 mg Q4H PRN Administration Pain, moderate (4-7) Nicotine 1 patch 07/02/16 10:00 07/06/16 09:46 Nicoderm Cq TD 1 patch DAILY [facility] Administration Saccharomyces Boulardii 250 mg 07/06/16 10:00 07/06/16 09:47 Florastor PO 250 mg BID [facility] Administration - Patient Studies Lab Studies: Lab Studies 07/06/16 Range/Units 09:26 WBC 8.7 (4.8-10.8) K/uL RBC 3.65 L (3.80-5.20) Mil/uL Hgb 11.0 (11.0-16.0) g/dL Hct 33.4 L (34.0-47.0) % MCV 91.5 (81.0-99.0) fL MCH 30.1 (27.0-31.0) pg MCHC 32.9 L (33.0-37.0) g/dL RDW 16.3 H (11.5-14.5) % Plt Count 305 (130-400) K/uL MPV 7.7 (7.2-11.7) fL Neut % (Auto) 75.7 H (50.0-75.0) % Lymph % (Auto) 9.9 L (20.0-40.0) % [place] % (Auto) 9.7 (0.0-10.0) % Eos % (Auto) 4.2 H (0.0-4.0) % Baso % (Auto) 0.5 (0.0-2.0) % Neut # 6.6 (1.8-7.0) K/uL Lymph # 0.9 L (1.0-4.3) K/uL [place] # 0.8 (0.0-0.8) K/uL Eos # 0.4 (0.0-0.7) K/uL Baso # 0.0 (0.0-0.2) K/uL Neutrophils % (Manual) 68 (50-75) % Band Neutrophils % 9 H (0-2) % Lymphocytes % (Manual) 13 L (20-40) % Reactive Lymphs % 1 H (0-0) % Monocytes % (Manual) 6 (0-10) % Eosinophils % (Manual) 3 (0-4) % Platelet Estimate Normal (NORMAL) Anisocytosis (manual) Slight PT 12.9 H (9.7-12.2) SECONDS INR 1.1 Sodium 135 (132-148) mmol/L Potassium 4.5 (3.6-5.2) mmol/L Chloride 95 L (98-107) mmol/L Carbon Dioxide 26 (22-30) mmol/L Anion Gap 19 (10-20) BUN 17 (7-17) mg/dL Creatinine 0.9 (0.7-1.2) MG/DL Est GFR ( Amer) > 60 Est GFR (Non-Af Amer) > 60 Random Glucose 118 H (65-105) mg/dL Calcium 8.9 (8.6-10.4) mg/dl Magnesium 1.8 (1.6-2.3) mg/dL Total Bilirubin 0.7 (0.2-1.3) mg/dL AST 97 H D (14-36) U/L ALT 125 H D (9-52) U/L Alkaline Phosphatase 153 H (38-126) U/L Total Protein 7.4 (6.3-8.3) g/dL Albumin 3.8 (3.5-5.0) g/dL Globulin 3.6 (2.2-3.9) gm/dL Albumin/Globulin Ratio 1.1 (1.0-2.1) Laboratory Results - last 24 hr 07/06/16 09:26 WBC 8.7 RBC 3.65 L Hgb 11.0 Hct 33.4 L MCV 91.5 MCH 30.1 MCHC 32.9 L RDW 16.3 H Plt Count 305 MPV 7.7 Neut % (Auto) 75.7 H Lymph % (Auto) 9.9 L [place] % (Auto) 9.7 Eos % (Auto) 4.2 H Baso % (Auto) 0.5 Neut # 6.6 Lymph # 0.9 L [place] # 0.8 Eos # 0.4 Baso # 0.0 Neutrophils % (Manual) 68 Band Neutrophils % 9 H Lymphocytes % (Manual) 13 L Reactive Lymphs % 1 H Monocytes % (Manual) 6 Eosinophils % (Manual) 3 Platelet Estimate Normal Anisocytosis (manual) Slight PT 12.9 H INR 1.1 Sodium 135 Potassium 4.5 Chloride 95 L Carbon Dioxide 26 Anion Gap 19 BUN 17 Creatinine 0.9 Est GFR ( Amer) > 60 Est GFR (Non-Af Amer) > 60 Random Glucose 118 H Calcium 8.9 Magnesium 1.8 Total Bilirubin 0.7 AST 97 H D ALT 125 H D Alkaline Phosphatase 153 H Total Protein 7.4 Albumin 3.8 Globulin 3.6 Albumin/Globulin Ratio 1.1 Review of Systems - Constitutional Constitutional: absent: Fever, Chills, Weakness - EENT Eyes: absent: Change in Vision Ears: absent: Decreased Hearing - Cardiovascular Cardiovascular: absent: Chest Pain, Chest Pain at Rest, Dyspnea, Dyspnea on Exertion - Respiratory Respiratory: absent: Cough, Wheezing - Gastrointestinal Gastrointestinal: absent: Abdominal Pain, Dysphagia, Nausea, Vomiting - Genitourinary Genitourinary: absent: Dysuria, Urinary Incontinence, Urinary Frequency - Musculoskeletal Musculoskeletal: absent: Numbness, Tingling Additional comments: Pt reports pain at Chest tube site, which is consistent from previous days. - Neurological Neurological: absent: Dizziness, Numbness, Tingling, Weakness - Psychiatric Psychiatric: Anxiety. absent: Depression - Hematologic/Lymphatic Hematologic: absent: Easy Bleeding, Easy Bruising Critical Care Progress Note - Nutrition Nutrition: Nutrition Category Date Time Status Regular Diet [DIET] Diets 07/01/16 Dinner Active Assessment/Plan - Assessment and Plan (Free Text) Assessment: 48 year old female with PMHx significant for cervical cancer with metastasis to lungs presents for critical care monitoring after discovery of pneumothorax on imaging. Patient s/p chest tube insertion 07/01/16. Patient remains hemodynamically stable. Plan: Neuro: aao x3 in nad Xanax- for anxiety Fioricet - for migraines Cardio: normotensive at this time Cont to monitor Echo (07/01/2106): LV EF WNL; No wall motion abnormalities; LV diastolic fxn normal; mild tricuspid regurgitation GI consult: Dr. Cox, for cardiac risk assessment - Low cardiac risk for VATS procedure - Pre-op Beta gloria as indicated -Detsky Score= Class I (low risk) - De Score= Class II (moderate risk) - Franky Score= Class II (low risk) Pulm: Chest Tube in place to waterseal. Earlier attempts to turn on suction resulted in hemodynamic instability and thus kept on waterseal. - CXR (07/06/16): Pneumothorax resolving. Persistent tiny right apical pneumothorax with right chest tube in place. Scattered nodularity at lung bases. Bibasilar atelectasis. Lucency in right hemidiaphragm. Possible free intraperitoneal air vs. atelectasis. (see full report) - Morphine 4mg IVP Q4H for pain Dr. Palmer (Cardiothoracic surgery) consulted. - CT Chest: f/u results - Recommend removal of chest tube then placement of Heimlich valve; D/C home on 07/06 after CXR; CT Chest in 1 week Case management, consult, for wound care Incentive spirometry Tobacco use disorder- nicotine patch GI: Dronabinol for anti emetic effects; may also stimulate appetite Colace 100mg PO BID Regular diet Heme Onc: Cervical cancer with lung mets Dronabinol Pain control management - Morphine 4mg IVP Q4H Nephro/: Monitor ins and outs GFR WNL UA: Protein negative, 2+ blood, Negative nitrate, 3+ leuk esterase, WBC 174, RBC 6, Bacteria Many ID: UTI: Rocephin 1gm Q24H IV Prophylaxis: GI: pepcid DVT: SCDs, Lovenox (held today for possible VATS on 07/07) Florastor for repeat ABX
[2016-07-06] MEDS ORDERED: Lidocaine/Epi 1% 1:100000 20 ML IJ ONE (12:50)
--- NOTE | 2016-07-06 13:28 | CT ---
PROCEDURE: CT Chest without contrast HISTORY: f/up pneumothorax COMPARISON: 07/03/2016 TECHNIQUE: Contiguous axial images were obtained through the chest without intravenous contrast enhancement. Sagittal and coronal reconstructions were performed. Radiation dose (DLP): 163.90 mGy-cm. This CT exam was performed using one or more of the following dose reduction techniques: Automated exposure control, adjustment of the mA and/or kV according to patient size, and/or use of iterative reconstruction technique. FINDINGS: LUNGS: Small right pneumothorax, status post insertion of right chest tube. Extent of pneumothorax is unchanged from the prior examination. There is very small right pleural effusion with compressive atelectasis of the right lower lobe. Multiple bilateral pulmonary masses are identified, some of which demonstrate cavitation. Largest such mass is seen in the right lower lobe abutting the area of compressive atelectasis. This measures approximately 1.9 cm in greatest dimension. There is no cavitation seen within this mass. Numerous additional bilateral masses are identified. This is unchanged from the prior examination. There is linear atelectasis in the left lower lobe. MEDIASTINUM: Unremarkable thoracic aorta. No aneurysm. Normal sized heart. Left central venous infusion port. Main pulmonary artery unremarkable. No vascular congestion. No lymphadenopathy. Several nodular mediastinal and right hilar calcifications are noted likely the result of old granulomatous disease. PLEURA: Very small right pleural effusion. No left pleural effusion. Dependent pleural thickening at the left posterior lung base. BONES: No fracture. Probable enchondroma right humeral head. No evidence of osseous metastasis. UPPER ABDOMEN: Left hydronephrosis. This is new since prior CT examination. Further evaluation is suggested. There is evidence of free intraperitoneal air beneath the right hemidiaphragm. . There is minimal pneumobilia new since prior examination. OTHER FINDINGS: Subcutaneous emphysema over right lateral chest wall. IMPRESSION: Very small right pneumothorax unchanged from prior examination. Right chest tube noted. Very small right pleural effusion. Multiple pulmonary masses, many with cavitation. Subcutaneous emphysema over the right lateral chest wall. Free air seen beneath the right hemidiaphragm. Uncertain etiology. Probable mild intrahepatic biliary gas not seen previously. Left hydronephrosis, new since prior examination. These findings were discussed by telephone with at 1:20 p.m. on 07/06/2016.
--- NOTE | 2016-07-06 14:08 | CP.PCM.PN ---
Subjective - Date & Time of Evaluation Date of Evaluation: 07/06/16 Time of Evaluation: 13:59 - Subjective Subjective: c/o pain around the chest tube site. Otherwise no c/o. Afebrile. [id number]. chest tube-No air leak. Negative intrapleural pressure. No drainage. ct of chest: space became smaller. Heimlich valve tody, d/c home tomorrow after cxr. Weekly opd f/u. ct of chest in one week, and f/u plan based on ct and clinical findings. Any emergency, the pt is to report to ER for care ([facility] and surgical residents). Objective - Vital Signs/Intake and Output Vital Signs (last 24 hours): Temp Pulse Resp BP Pulse Ox 99.0 F 78 20 97/62 L 95 07/06/16 12:00 07/06/16 13:00 07/06/16 13:00 07/06/16 12:46 07/06/16 13:00 Intake and Output: 07/06/16 07/06/16 06:59 18:59 Intake Total 50 300 Output Total 551 550 Balance -501 -250 - Medications Medications: Current Medications Acetaminophen/Butalbital/Caffeine (Fioricet) 2 tab PO Q6 PRN PRN Reason: Headache Last Admin: 07/06/16 02:30 Dose: 2 tab Alprazolam (Xanax) 0.5 mg PO HS PRN PRN Reason: Anxiety Docusate Sodium (Colace) 100 mg PO BID [facility] Last Admin: 07/06/16 09:48 Dose: Not Given Dronabinol (Marinol) 2.5 mg PO BID [facility] Last Admin: 07/06/16 09:46 Dose: 2.5 mg Famotidine (Pepcid) 20 mg PO BID [facility] Last Admin: 07/06/16 09:46 Dose: 20 mg Ceftriaxone Sodium 1 gm/ (Sodium Chloride) 100 mls @ 100 mls/hr IVPB Q24H [facility] Last Admin: 07/05/16 17:50 Dose: 100 mls/hr Morphine Sulfate (Morphine) 4 mg IVP Q4H PRN PRN Reason: Pain, moderate (4-7) Last Admin: 07/06/16 12:43 Dose: 4 mg Nicotine (Nicoderm Cq) 1 patch TD DAILY [facility] Last Admin: 07/06/16 09:46 Dose: 1 patch Saccharomyces Boulardii (Florastor) 250 mg PO BID [facility] Last Admin: 07/06/16 09:47 Dose: 250 mg - Labs Labs: 07/06/16 09:26 07/06/16 09:26 PT 12.9 SECONDS (9.7-12.2) H 07/06/16 09:26 INR 1.1 07/06/16 09:26 APTT 32 SECONDS (21-34) 07/01/16 14:22
[2016-07-06] MEDS: Oxycodone/Acetaminophen 5/325 mg Tab PO PRN ×2 (15:55→22:15)
--- NOTE | 2016-07-06 16:44 | RAD ---
HISTORY: s/p CT valve placement . Technique: Single view portable semi erect @ 15:45. COMPARISON: Multiple serial examinations preceding the most recent study: July 06, 2016. 07:10. FINDINGS: LUNGS: No active pulmonary disease. PLEURA: Stable position of chest tube in the right pleural space. Stable tiny right apical pneumothorax. CARDIOVASCULAR: No radiographic findings to suggest acute or significant cardiovascular disease. Venous access catheter in stable, satisfactory position. OSSEOUS STRUCTURES: No significant abnormalities. Bony lesion likely at bone island/infarct proximal right humerus. The finding is stable compared to multiple serial shoulder radiographs the latest is August 03, 2015. VISUALIZED UPPER ABDOMEN: Normal. OTHER FINDINGS: Trace subcutaneous emphysema supraclavicular region. IMPRESSION: Satisfactory position of chest tube in the right pleural space. Tiny right apical pneumothorax.
[2016-07-07] MEDS: Apap-Butalbital-Caffeine 325-50-40mg Tab PO PRN (02:33)
[2016-07-07] MEDS: Oxycodone/Acetaminophen 5/325 mg Tab PO PRN (03:46)
[2016-07-07 06:28] LABS: BASO % 0.6 % (0.0-2.0); EOS # 0.5 K/uL (0.0-0.7); EOS % 6.6 % (0.0-4.0); HEMATOCRIT 32.2 % (34.0-47.0); LYMPH % 12.1 % (20.0-40.0); MEAN CELL VOLUME 91.5 fL (81.0-99.0); MEAN CORPUSCULAR HEMOGLOBIN 30.1 pg (27.0-31.0); MEAN CORPUSCULAR HGB CONC 32.9 g/dL (33.0-37.0); MONO # 0.6 K/uL (0.0-0.8); MONO % 7.8 % (0.0-10.0); NRBC % 0.1 % (0.0-2.0); RED CELL DISTRIBUTION WIDTH 15.8 % (11.5-14.5); WHITE BLOOD COUNT 7.9 K/uL (4.8-10.8)
[2016-07-07 06:35] LABS: CHLORIDE 99 mmol/L (98-107)
[2016-07-07 06:36] LABS: POTASSIUM 4.4 mmol/L (3.6-5.2); SODIUM 134 mmol/L (132-148)
[2016-07-07 06:38] LABS: ALKALINE PHOSPHATASE 159 U/L (38-126); ALT/SGPT 109 U/L (9-52); AST/SGOT 69 U/L (14-36); BILIRUBIN,TOTAL 0.3 mg/dL (0.2-1.3); BLOOD UREA NITROGEN 21 mg/dL (7-17); CARBON DIOXIDE 21 mmol/L (22-30); GFR AFRICAN-AMERICAN > 60; GLUCOSE,RANDOM 108 mg/dL (65-105); TOTAL PROTEIN 7.1 g/dL (6.3-8.3)
[2016-07-07 06:39] LABS: MAGNESIUM 1.9 mg/dL (1.6-2.3); PHOSPHOROUS 4.1 mg/dL (2.5-4.5)
[2016-07-07] MEDS ORDERED: oxyCODONE 5 mg Immediate Release Tab PO PRN (07:05)
--- NOTE | 2016-07-07 09:03 | RAD ---
HISTORY: follow up removal of chest tube COMPARISON: 07/06/2016 FINDINGS: LUNGS: Persistent small right apical pneumothorax. Mild venous congestion with patchy bibasilar airspace opacities. Bibasilar breast and nipple shadows. Lines and tubes stable position. PLEURA: As above. CARDIOVASCULAR: Normal. OSSEOUS STRUCTURES: Multiple left-sided rib fracture deformities. Stable ill-defined sclerotic lesion in the right proximal humerus. VISUALIZED UPPER ABDOMEN: Normal. OTHER FINDINGS: None. IMPRESSION: No significant interval change.
--- NOTE | 2016-07-07 09:08 | CP.PCM.PN ---
<Serafin Miller - Last Filed: 07/07/16 09:05> Subjective - Date & Time of Evaluation Date of Evaluation: 07/07/16 Time of Evaluation: 09:05 - Subjective Subjective: Cardiology Progress Note Dr. Cox Patient seen and examined at the bedside. No acute distress. No acute events overnight. Nursing staff reports no issues. Patient reports continued pain at the previous chest tube site. The patient states that the pain is managed well with oxy IR. The patient denies fever, chills, changes in vision/hearing, headache, chest pain, shortness of breath, abdominal pain, N/V/D/C, changes in bowel/bladder, and extremity paresthesias. Objective - Vital Signs/Intake and Output Vital Signs (last 24 hours): Temp Pulse Resp BP Pulse Ox 97 F L 67 17 102/63 97 07/07/16 08:00 07/07/16 08:00 07/07/16 08:00 07/07/16 07:46 07/07/16 08:00 Intake and Output: 07/07/16 07/07/16 06:59 18:59 Intake Total 40 50 Output Total 1300 Balance -1260 50 - Medications Medications: Current Medications Alprazolam (Xanax) 0.5 mg PO HS PRN PRN Reason: Anxiety Docusate Sodium (Colace) 100 mg PO BID [facility] Last Admin: 07/06/16 17:51 Dose: Not Given Dronabinol (Marinol) 2.5 mg PO BID [facility] Last Admin: 07/06/16 17:49 Dose: 2.5 mg Famotidine (Pepcid) 20 mg PO BID [facility] Last Admin: 07/06/16 17:49 Dose: 20 mg Ceftriaxone Sodium 1 gm/ (Sodium Chloride) 100 mls @ 100 mls/hr IVPB Q24H [facility] Last Admin: 07/06/16 17:50 Dose: 100 mls/hr Nicotine (Nicoderm Cq) 1 patch TD DAILY [facility] Last Admin: 07/06/16 09:46 Dose: 1 patch Oxycodone HCl (Oxycodone Immediate Release Tab) 5 mg PO Q6 PRN PRN Reason: Pain, moderate (4-7) Last Admin: 07/07/16 08:01 Dose: 5 mg Saccharomyces Boulardii (Florastor) 250 mg PO BID [facility] Last Admin: 07/06/16 17:49 Dose: 250 mg - Labs Labs: 07/07/16 06:15 07/07/16 06:15 PT 12.9 SECONDS (9.7-12.2) H 07/06/16 09:26 INR 1.1 07/06/16 09:26 APTT 32 SECONDS (21-34) 07/01/16 14:22 - Additional Findings Additional findings: - Constitutional Appears: Well, No Acute Distress - Head Exam Head Exam: ATRAUMATIC, NORMAL INSPECTION, NORMOCEPHALIC - Eye Exam Eye Exam: EOMI, Normal appearance, PERRL Pupil Exam: NORMAL ACCOMODATION - ENT Exam ENT Exam: Mucous Membranes Moist, Normal Exam - Neck Exam Neck exam: Positive for: Normal Inspection. Negative for: Lymphadenopathy, Meningismus, Thyromegaly - Respiratory Exam Respiratory Exam: Clear to Auscultation Bilateral, NORMAL BREATHING PATTERN. absent: Accessory Muscle Use, Rales, Rhonchi, Wheezes - Cardiovascular Exam Cardiovascular Exam: REGULAR RHYTHM, RRR, +S1, +S2. absent: Diastolic murmur, Systolic Murmur - GI/Abdominal Exam GI & Abdominal Exam: Normal Bowel Sounds, Soft. absent: Distended, Firm, Guarding, Rebound, Rigid, Tenderness - Extremities Exam Extremities exam: Positive for: full ROM, normal capillary refill, normal inspection, pedal pulses present. Negative for: joint swelling, pedal edema - Neurological Exam Neurological exam: Alert, CN II-XII Intact, Normal Gait, Oriented x3 - Psychiatric Exam Psychiatric exam: Normal Affect, Normal Mood - Skin Skin Exam: Dry, Intact, Normal Color, Warm Assessment and Plan - Assessment and Plan (Free Text) Assessment: This is a 56 year old female with a PMH notable for cervical CA (s/p chemo/ radiation) with metastasis to lung presenting for cardiac evaluation risk assessment of pneumothorax of right lung. 1.) Right Sided Pneumothorax 2.) Cervical Cancer with lung mets 3.) Nicotine Dependence Plan: 1.) Right Lung Pneumothorax - Hemodynamically stable at this time - Heimlich valve in place - 07/07/16 CXR- unchanged from previous. persistent pneumothorax - 07/06/16 CXR- persistent apical pneumothoarx - 07/06/16 CT Chest- apical pneumothoarx - 07/01/16 Echo- LVEF 77% - 07/01/16 EKG- NSR, normal axis, normal intervals, no ST-T wave changes - Troponins and CKMB negative on admission 2.) Nicotine Dependence - recommend smoking cessation - continue nicotine patch Case Discussed with Dr. Cox No further cardiac intervention planned at this time. Dr. Cox and the cardiology service will sign off. Please re-consult as needed. Thank you. Slick Angela PGY1 <Jose Cox - Last Filed: 08/10/16 10:38> Objective - Vital Signs/Intake and Output Vital Signs (last 24 hours): Temp Pulse Resp BP Pulse Ox 98.6 F 79 18 96/59 L 98 07/07/16 12:00 07/07/16 13:02 07/07/16 13:02 07/07/16 11:46 07/10/16 18:17 - Labs Labs: 07/07/16 06:15 07/07/16 06:15 PT 12.9 SECONDS (9.7-12.2) H 07/06/16 09:26 INR 1.1 07/06/16 09:26 APTT 32 SECONDS (21-34) 07/01/16 14:22 Attending/Attestation - Attestation I have personally seen and examined this patient.: Yes I have fully participated in the care of the patient.: Yes I have reviewed all pertinent clinical information, including history, physical exam and plan: Yes Notes (Text): pt with himlech valve hemodynamically stable 08/10/16 10:35
[2016-07-07] MEDS: Saccharomyces Boulardi 250 mg Cap PO SCH (09:32)
[2016-07-07 10:02] VITALS: BP 96/59
--- NOTE | 2016-07-07 10:41 | CP.PCM.PN ---
Subjective - Date & Time of Evaluation Date of Evaluation: 07/07/16 Time of Evaluation: 07:30 - Subjective Subjective: CT Surgery: Dr. Palmer Patient seen and examined this morning. Heimlich valve in place and functioning. Patient has no new complaints. Reports mild pain at chest tube insertion site, CT dressing c/d/i. NAEO. Objective - Vital Signs/Intake and Output Vital Signs (last 24 hours): Temp Pulse Resp BP Pulse Ox 97 F L 81 23 96/59 L 97 07/07/16 08:00 07/07/16 10:00 07/07/16 10:00 07/07/16 09:46 07/07/16 10:00 Intake and Output: 07/07/16 07/07/16 06:59 18:59 Intake Total 40 250 Output Total 1300 Balance -1260 250 - Medications Medications: Current Medications Alprazolam (Xanax) 0.5 mg PO HS PRN PRN Reason: Anxiety Docusate Sodium (Colace) 100 mg PO BID [facility] Last Admin: 07/07/16 09:32 Dose: Not Given Dronabinol (Marinol) 2.5 mg PO BID [facility] Last Admin: 07/07/16 09:32 Dose: 2.5 mg Famotidine (Pepcid) 20 mg PO BID [facility] Last Admin: 07/07/16 09:32 Dose: 20 mg Ceftriaxone Sodium 1 gm/ (Sodium Chloride) 100 mls @ 100 mls/hr IVPB Q24H [facility] Last Admin: 07/06/16 17:50 Dose: 100 mls/hr Nicotine (Nicoderm Cq) 1 patch TD DAILY [facility] Last Admin: 07/07/16 09:31 Dose: 1 patch Oxycodone HCl (Oxycodone Immediate Release Tab) 5 mg PO Q6 PRN PRN Reason: Pain, moderate (4-7) Last Admin: 07/07/16 08:01 Dose: 5 mg Saccharomyces Boulardii (Florastor) 250 mg PO BID [facility] Last Admin: 07/07/16 09:32 Dose: 250 mg - Labs Labs: 07/07/16 06:15 07/07/16 06:15 PT 12.9 SECONDS (9.7-12.2) H 07/06/16 09:26 INR 1.1 07/06/16 09:26 APTT 32 SECONDS (21-34) 07/01/16 14:22 - Constitutional Appears: No Acute Distress - Head Exam Head Exam: NORMOCEPHALIC - Eye Exam Eye Exam: Normal appearance - ENT Exam ENT Exam: Mucous Membranes Moist - Respiratory Exam Respiratory Exam: NORMAL BREATHING PATTERN - Cardiovascular Exam Cardiovascular Exam: +S1, +S2 - GI/Abdominal Exam GI & Abdominal Exam: Soft - Neurological Exam Neurological Exam: Alert, Awake, Oriented x3 - Psychiatric Exam Psychiatric exam: Normal Mood - Skin Skin Exam: Dry, Intact, Warm Assessment and Plan - Assessment and Plan (Free Text) Assessment: 56F w/ pneumothorax, resolving -[id number]. -CXR- small apical pneumothorax -Heimlich valve intact & functioning -Pt clear for d/c from surgical standpoint -Pt to get outpatient CT in 1 week - F/U plan based on ct and clinical findings. -Any emergency, pt is to report to ER for care (Dr. Palmer & surgical residents.) -F/u w/ Dr. Palmer/ Dr. Lira -D/w Dr. Palmer
[2016-07-07] MEDS ORDERED: oxyCODONE 5 mg Immediate Release Tab PO ONE (10:54)
--- NOTE | 2016-07-07 10:55 | CP.PCM.DIS ---
<Bo Blasic - Last Filed: 07/07/16 16:06> Provider - Provider Date of Admission: 07/01/16 14:28 Attending physician: Angela Hess DO Primary care physician: Dr. Underwood (PMD) Consults: Dr. Thang Palmer (Cardiothoracic Surgeon) Dr. Cox (Cardiology) Dr. Noe Barger (Pulmonology) Time Spent in preparation of Discharge (in minutes): 40 Hospital Course - Lab Results Lab Results: Micro Results 07/06/16 Unknown Urine Urine Culture - Preliminary Gram Negative Saul 07/01/16 20:45 Naris MRSA Culture (Admit) - Final MRSA NOT DETECTED Most Recent Lab Values WBC 7.9 K/uL (4.8-10.8) 07/07/16 06:15 RBC 3.51 Mil/uL (3.80-5.20) L 07/07/16 06:15 Hgb 10.6 g/dL (11.0-16.0) L 07/07/16 06:15 Hct 32.2 % (34.0-47.0) L 07/07/16 06:15 MCV 91.5 fL (81.0-99.0) 07/07/16 06:15 MCH 30.1 pg (27.0-31.0) 07/07/16 06:15 MCHC 32.9 g/dL (33.0-37.0) L 07/07/16 06:15 RDW 15.8 % (11.5-14.5) H 07/07/16 06:15 Plt Count 287 K/uL (130-400) 07/07/16 06:15 MPV 8.0 fL (7.2-11.7) 07/07/16 06:15 Neut % (Auto) 72.9 % (50.0-75.0) 07/07/16 06:15 Lymph % (Auto) 12.1 % (20.0-40.0) L 07/07/16 06:15 [place] % (Auto) 7.8 % (0.0-10.0) 07/07/16 06:15 Eos % (Auto) 6.6 % (0.0-4.0) H 07/07/16 06:15 Baso % (Auto) 0.6 % (0.0-2.0) 07/07/16 06:15 Neut # 5.8 K/uL (1.8-7.0) 07/07/16 06:15 Lymph # 1.0 K/uL (1.0-4.3) 07/07/16 06:15 [place] # 0.6 K/uL (0.0-0.8) 07/07/16 06:15 Eos # 0.5 K/uL (0.0-0.7) 07/07/16 06:15 Baso # 0.0 K/uL (0.0-0.2) 07/07/16 06:15 Neutrophils % (Manual) 68 % (50-75) 07/06/16 09:26 Band Neutrophils % 9 % (0-2) H 07/06/16 09:26 Lymphocytes % (Manual) 13 % (20-40) L 07/06/16 09:26 Reactive Lymphs % 1 % (0-0) H 07/06/16 09:26 Monocytes % (Manual) 6 % (0-10) 07/06/16 09:26 Eosinophils % (Manual) 3 % (0-4) 07/06/16 09:26 Platelet Estimate Normal (NORMAL) 07/06/16 09:26 Anisocytosis (manual) Slight 07/06/16 09:26 PT 12.9 SECONDS (9.7-12.2) H 07/06/16 09:26 INR 1.1 07/06/16 09:26 APTT 32 SECONDS (21-34) 07/01/16 14:22 Sodium 134 mmol/L (132-148) 07/07/16 06:15 Potassium 4.4 mmol/L (3.6-5.2) 07/07/16 06:15 Chloride 99 mmol/L (98-107) 07/07/16 06:15 Carbon Dioxide 21 mmol/L (22-30) L 07/07/16 06:15 Anion Gap 18 (10-20) 07/07/16 06:15 BUN 21 mg/dL (7-17) H 07/07/16 06:15 Creatinine 0.9 MG/DL (0.7-1.2) 07/07/16 06:15 Est GFR ( Amer) > 60 07/07/16 06:15 Est GFR (Non-Af Amer) > 60 07/07/16 06:15 Random Glucose 108 mg/dL (65-105) H 07/07/16 06:15 Calcium 9.0 mg/dl (8.6-10.4) 07/07/16 06:15 Phosphorus 4.1 mg/dL (2.5-4.5) 07/07/16 06:15 Magnesium 1.9 mg/dL (1.6-2.3) 07/07/16 06:15 Total Bilirubin 0.3 mg/dL (0.2-1.3) 07/07/16 06:15 AST 69 U/L (14-36) H D 07/07/16 06:15 ALT 109 U/L (9-52) H 07/07/16 06:15 Alkaline Phosphatase 159 U/L (38-126) H 07/07/16 06:15 Total Creatine Kinase 62 U/L (30-135) 07/02/16 05:00 CK-MB (Mass) 0.82 ng/mL (0.0-3.38) 07/02/16 05:00 Troponin I, Quant < 0.0120 ng/mL (0.00-0.120) 07/02/16 05:00 Total Protein 7.1 g/dL (6.3-8.3) 07/07/16 06:15 Albumin 3.5 g/dL (3.5-5.0) 07/07/16 06:15 Globulin 3.6 gm/dL (2.2-3.9) 07/07/16 06:15 Albumin/Globulin Ratio 1.0 (1.0-2.1) 07/07/16 06:15 Urine Color Yellow (YELLOW) 07/05/16 06:37 Urine Clarity Hazy (Clear) 07/05/16 06:37 Urine pH 5.0 (5.0-8.0) 07/05/16 06:37 Ur Specific [place] 1.012 (1.003-1.030) 07/05/16 06:37 Urine Protein Negative mg/dL (NEGATIVE) 07/05/16 06:37 Urine Glucose (UA) Normal mg/dL (Normal) 07/05/16 06:37 Urine Ketones Trace mg/dL (NEGATIVE) 07/05/16 06:37 Urine Blood 2+ (NEGATIVE) H 07/05/16 06:37 Urine Nitrate Negative (NEGATIVE) 07/05/16 06:37 Urine Bilirubin Negative (NEGATIVE) 07/05/16 06:37 Urine Urobilinogen Normal mg/dL (0.2-1.0) 07/05/16 06:37 Ur Leukocyte Esterase 3+ Christi/uL (Negative) H 07/05/16 06:37 Urine WBC (Auto) 174 /hpf (0-5) H 07/05/16 06:37 Urine RBC (Auto) 6 /hpf (0-3) H 07/05/16 06:37 Ur Squamous Epith Cells 1 /hpf (0-5) 07/05/16 06:37 Urine Bacteria Many (<OCC) H 07/05/16 06:37 Urine HCG, Qual Negative (NEGATIVE) 07/01/16 14:43 Hepatitis A IgM Ab Negative (NEGATIVE) 07/07/16 08:53 Hep Bs Antigen Negative (NEGATIVE) 07/07/16 08:53 Hep B Core IgM Ab Negative (NEGATIVE) 07/07/16 08:53 Hepatitis C Antibody Negative (NEGATIVE) 07/07/16 08:53 Blood Type A POSITIVE 07/01/16 14:29 Antibody Screen Negative 07/01/16 14:29 - Hospital Course Hospital Course: On admission: 56 yo F w/PMH sig for cervical CA s/p chemo/radiation with mets to lung currently on chemo-held x 1 mo for dental work admitted for pneumothorax of Right lung. Pt reports that 1 mo ago she went [facility] after high heel related Left hip injury w/diagnosis of L hip vs. pelvis fracture- pt waited 6 hrs in ED, states that prior to ED visit, she did not have cough, but afterwards noted on. Cough is non productive. Admits to SOB, DAVIDSON, chills, orthopnea, daily recurrent migraines, palpitations with exertion, occasional Left hip pain, Right lower midaxillary rib pain, weight loss due to chemo. Denies N/V/F, CP, abdominal pain, constipation, diarrhea, dysuria, urinary frequency, weakness, vision changes, sore throat, congestion, rhinorrhea, sinus congestion Hospital course: Patient was sent to ED from outpatient Radiology center, on 07/01 after discovery of right sided pneumothorax on chest xray. Surgery, Dr. Lira, was consulted for chest tube placement. Chest tube was placed by surgical instruments inspector at bedside. Every time the chest tube was connected to suction the pt would desaturate into the high 70s, so patient was kept on waterseal. Pt was admitted to ICU to monitor. Follow up CXR showed reinflation of right lung, with tiny apical pneumothorax. Dr. Palmer, Cardiothoracic surgery, was consulted. Initially pt was to go for VATS resection, but no leak/drainage was detected in chest tube. Instead, Heimlich valve was placed. Multiple CT chests over course confirmed slow improvement of pneumothorax, along with subcutaneous emphysema and multiple pulmonary nodules. With no SOB, and only mild pain at site of chest tube/valve, pt was deemed stable for discharge by surgery and medical attending, Dr. Hess. Before discharge, urine culture showed growth of gram negative saul, and pt was given prescription for Bactrim. Pt will be called at home if specific organism for which Bactrim does not cover grows in culture. Pt was given verbal instructions to follow up with Dr. Barger (pulmonary), Dr. Lira (Gen Surg), Dr. Palmer (CT surgeon), and Dr. Nielsen (PMD). Pt was given prescriptions for pain medication, smoking cessation, and wound care was setup to visit her home 3 times per week. Discharge Exam - Head Exam Head Exam: ATRAUMATIC, NORMAL INSPECTION, NORMOCEPHALIC - Eye Exam Eye Exam: EOMI, Normal appearance - ENT Exam ENT Exam: Mucous Membranes Moist - Respiratory Exam Respiratory Exam: NORMAL BREATHING PATTERN. absent: Decreased Breath Sounds, Respiratory Distress Additional comments: Heimlich valve in place - Cardiovascular Exam Cardiovascular Exam: REGULAR RHYTHM, +S1, +S2 - GI/Abdominal Exam GI & Abdominal Exam: Normal Bowel Sounds, Soft - Extremities Exam Extremities exam: normal inspection - Neurological Exam Neurological exam: Alert, Oriented x3 - Psychiatric Exam Psychiatric exam: Normal Affect - Skin Skin Exam: Normal Color, Warm Discharge Plan - Discharge Medications Prescriptions: RX: Sulfamethoxazole/Trimethoprim [Bactrim DS Tab] 1 tab PO BID #10 tab RX: Nicotine 21 mg/24 hr [Nicoderm Cq] 21 mg TD DAILY #7 patch RX: oxyCODONE [oxyCODONE Immediate Release Tab] 5 mg PO Q6H PRN #10 tab PRN Reason: Pain, Moderate (4-7) - Follow Up Plan Condition: GOOD Disposition: HOME/ ROUTINE Instructions: Spontaneous Pneumothorax (DC), How to Stop Smoking (DC), How to Use an Incentive Spirometer (DC), Chest Tubes (DC), Constipation (DC), Urinary Tract Infection in Women (DC), Urinary Tract Infection in Men (DC), Heart Healthy Diet (DC), Narcotic Pain Management (DC), Dysuria (GEN), Dyspnea (GEN) Additional Instructions: Patient is stable for discharge per Dr. Hess. Patient will be given prescription for Nicoderm patch, Oxycodone, Bactrim and materials for dressing changes. Patient was given instructions to follow up with Dr. Palmer, Dr. Lira, and Dr. Barger next week. Pt was given prescription for CT Chest which she is to have performed next week at the location of her choosing. She is to bring the results and copy of CT with her to appointments for Pankaj Patino and [facility]. Patient has appointment with her PMD, Dr. Underwood, for 07/13/2016. Patient is to return to the emergency department if symptoms return or worsen. Newly Prescribed Medication: Oxycodone 5mg, by mouth, every 6 hours NEEDED Nicoderm Patch, once daily, for 7 days Bactrim, one tablet, by mouth, twice daily for 5 days Referrals: Noe Barger MD [Staff Provider] - Chata Lira MD [Staff Provider] - (Schedule CT of the chest in one;, and the schedule an appointment with Dr. Lira.) Thang Palmer MD [Staff Provider] - <Angela Hess V - Last Filed: 07/07/16 20:31> Provider - Provider Date of Admission: 07/01/16 14:28 Attending physician: Angela Hess DO Diagnosis - Discharge Diagnosis (1) Pneumothorax Status: Acute (2) Urinary tract infection Status: Acute (3) Anxiety Status: Chronic (4) Migraine Status: Chronic (5) Nicotine abuse Status: Chronic (6) Cervical cancer Status: Chronic (7) Prophylactic measure Status: Acute Hospital Course - Lab Results Lab Results: Micro Results 07/06/16 Unknown Urine Urine Culture - Preliminary Gram Negative Saul 07/01/16 20:45 Naris MRSA Culture (Admit) - Final MRSA NOT DETECTED Most Recent Lab Values WBC 7.9 K/uL (4.8-10.8) 07/07/16 06:15 RBC 3.51 Mil/uL (3.80-5.20) L 07/07/16 06:15 Hgb 10.6 g/dL (11.0-16.0) L 07/07/16 06:15 Hct 32.2 % (34.0-47.0) L 07/07/16 06:15 MCV 91.5 fL (81.0-99.0) 07/07/16 06:15 MCH 30.1 pg (27.0-31.0) 07/07/16 06:15 MCHC 32.9 g/dL (33.0-37.0) L 07/07/16 06:15 RDW 15.8 % (11.5-14.5) H 07/07/16 06:15 Plt Count 287 K/uL (130-400) 07/07/16 06:15 MPV 8.0 fL (7.2-11.7) 07/07/16 06:15 Neut % (Auto) 72.9 % (50.0-75.0) 07/07/16 06:15 Lymph % (Auto) 12.1 % (20.0-40.0) L 07/07/16 06:15 [place] % (Auto) 7.8 % (0.0-10.0) 07/07/16 06:15 Eos % (Auto) 6.6 % (0.0-4.0) H 07/07/16 06:15 Baso % (Auto) 0.6 % (0.0-2.0) 07/07/16 06:15 Neut # 5.8 K/uL (1.8-7.0) 07/07/16 06:15 Lymph # 1.0 K/uL (1.0-4.3) 07/07/16 06:15 [place] # 0.6 K/uL (0.0-0.8) 07/07/16 06:15 Eos # 0.5 K/uL (0.0-0.7) 07/07/16 06:15 Baso # 0.0 K/uL (0.0-0.2) 07/07/16 06:15 Neutrophils % (Manual) 68 % (50-75) 07/06/16 09:26 Band Neutrophils % 9 % (0-2) H 07/06/16 09:26 Lymphocytes % (Manual) 13 % (20-40) L 07/06/16 09:26 Reactive Lymphs % 1 % (0-0) H 07/06/16 09:26 Monocytes % (Manual) 6 % (0-10) 07/06/16 09:26 Eosinophils % (Manual) 3 % (0-4) 07/06/16 09:26 Platelet Estimate Normal (NORMAL) 07/06/16 09:26 Anisocytosis (manual) Slight 07/06/16 09:26 PT 12.9 SECONDS (9.7-12.2) H 07/06/16 09:26 INR 1.1 07/06/16 09:26 APTT 32 SECONDS (21-34) 07/01/16 14:22 Sodium 134 mmol/L (132-148) 07/07/16 06:15 Potassium 4.4 mmol/L (3.6-5.2) 07/07/16 06:15 Chloride 99 mmol/L (98-107) 07/07/16 06:15 Carbon Dioxide 21 mmol/L (22-30) L 07/07/16 06:15 Anion Gap 18 (10-20) 07/07/16 06:15 BUN 21 mg/dL (7-17) H 07/07/16 06:15 Creatinine 0.9 MG/DL (0.7-1.2) 07/07/16 06:15 Est GFR ( Amer) > 60 07/07/16 06:15 Est GFR (Non-Af Amer) > 60 07/07/16 06:15 Random Glucose 108 mg/dL (65-105) H 07/07/16 06:15 Calcium 9.0 mg/dl (8.6-10.4) 07/07/16 06:15 Phosphorus 4.1 mg/dL (2.5-4.5) 07/07/16 06:15 Magnesium 1.9 mg/dL (1.6-2.3) 07/07/16 06:15 Total Bilirubin 0.3 mg/dL (0.2-1.3) 07/07/16 06:15 AST 69 U/L (14-36) H D 07/07/16 06:15 ALT 109 U/L (9-52) H 07/07/16 06:15 Alkaline Phosphatase 159 U/L (38-126) H 07/07/16 06:15 Total Creatine Kinase 62 U/L (30-135) 07/02/16 05:00 CK-MB (Mass) 0.82 ng/mL (0.0-3.38) 07/02/16 05:00 Troponin I, Quant < 0.0120 ng/mL (0.00-0.120) 07/02/16 05:00 Total Protein 7.1 g/dL (6.3-8.3) 07/07/16 06:15 Albumin 3.5 g/dL (3.5-5.0) 07/07/16 06:15 Globulin 3.6 gm/dL (2.2-3.9) 07/07/16 06:15 Albumin/Globulin Ratio 1.0 (1.0-2.1) 07/07/16 06:15 Urine Color Yellow (YELLOW) 07/05/16 06:37 Urine Clarity Hazy (Clear) 07/05/16 06:37 Urine pH 5.0 (5.0-8.0) 07/05/16 06:37 Ur Specific [place] 1.012 (1.003-1.030) 07/05/16 06:37 Urine Protein Negative mg/dL (NEGATIVE) 07/05/16 06:37 Urine Glucose (UA) Normal mg/dL (Normal) 07/05/16 06:37 Urine Ketones Trace mg/dL (NEGATIVE) 07/05/16 06:37 Urine Blood 2+ (NEGATIVE) H 07/05/16 06:37 Urine Nitrate Negative (NEGATIVE) 07/05/16 06:37 Urine Bilirubin Negative (NEGATIVE) 07/05/16 06:37 Urine Urobilinogen Normal mg/dL (0.2-1.0) 07/05/16 06:37 Ur Leukocyte Esterase 3+ Christi/uL (Negative) H 07/05/16 06:37 Urine WBC (Auto) 174 /hpf (0-5) H 07/05/16 06:37 Urine RBC (Auto) 6 /hpf (0-3) H 07/05/16 06:37 Ur Squamous Epith Cells 1 /hpf (0-5) 07/05/16 06:37 Urine Bacteria Many (<OCC) H 07/05/16 06:37 Urine HCG, Qual Negative (NEGATIVE) 07/01/16 14:43 Hepatitis A IgM Ab Negative (NEGATIVE) 07/07/16 08:53 Hep Bs Antigen Negative (NEGATIVE) 07/07/16 08:53 Hep B Core IgM Ab Negative (NEGATIVE) 07/07/16 08:53 Hepatitis C Antibody Negative (NEGATIVE) 07/07/16 08:53 Blood Type A POSITIVE 07/01/16 14:29 Antibody Screen Negative 07/01/16 14:29 Attending/Attestation - Attestation I have personally seen and examined this patient.: Yes I have fully participated in the care of the patient.: Yes I have reviewed all pertinent clinical information, including history, physical exam and plan: Yes Notes (Text): Patient seen, examined and case discussed with day-time resident Patient seen at bedside today and throughout the day. Further details as per my progress note. Per CT surgery, stable from their standpoint for discharge. Patient provided script for repeat CT chest and to follow-up at Dr. Lira (general surgery) within one week. Discussed with case management, patient setup for home nursing regarding dressing associated with Hemivalch valve; will come in 3x week for dressing change as well as instructed to home to dress as well. Given script for dressing changes and equipment to be provided to the patient to case management. I personally discussed discharge instructions with the patient. Review [place] [employer], patient's last Percocet 06/01/16 and on 07/02/16. Advised patient she will need to follow-up with her primary care doctor regarding Percocet prescription and Patient will be given prescription for Nicoderm patch, Oxycodone, Bactrim and materials for dressing changes. Patient medically stable for discharge today. Patient to follow-up with surgery, pulmonary, and PMD. Spoke with Dr. Underwood's office-->patient is scheduled for outpatient followup on 07/13/16 at 3:15PM. Patient is to return to the emergency department if symptoms return or worsen. Newly Prescribed Medication: Oxycodone 5mg, by mouth, every 6 hours NEEDED for pain (10 pills/no refills) Nicoderm Patch 21mg patch, once daily, for 7 days (upper outer arm, advised to change daily and change location) and to not smoke while taking this medication Bactrim DS, one tablet, by mouth, twice daily for 5 days (10 pills/no refills). This is summary of patient's hospital. Please review EMR for further details.
--- NOTE | 2016-07-07 11:34 | CP.PCM.PN ---
Subjective - Date & Time of Evaluation Date of Evaluation: 07/07/16 Time of Evaluation: 08:45 - Subjective Subjective: Patient seen and examined sitting in chair at bedside. Pt offers no acute complaints. She is eager to go home. Has pain at chest tube insertion pain. Pt denies shortness of breath, orthopnea, nausea, vomiting, fever, chills, abdominal pain, constipation, diarrhea. Objective - Vital Signs/Intake and Output Vital Signs (last 24 hours): Temp Pulse Resp BP Pulse Ox 97 F L 81 23 96/59 L 97 07/07/16 08:00 07/07/16 10:00 07/07/16 10:00 07/07/16 09:46 07/07/16 10:00 Intake and Output: 07/07/16 07/07/16 06:59 18:59 Intake Total 40 250 Output Total 1300 Balance -1260 250 - Medications Medications: Current Medications Alprazolam (Xanax) 0.5 mg PO HS PRN PRN Reason: Anxiety Docusate Sodium (Colace) 100 mg PO BID [facility] Last Admin: 07/07/16 09:32 Dose: Not Given Dronabinol (Marinol) 2.5 mg PO BID [facility] Last Admin: 07/07/16 09:32 Dose: 2.5 mg Famotidine (Pepcid) 20 mg PO BID [facility] Last Admin: 07/07/16 09:32 Dose: 20 mg Ceftriaxone Sodium 1 gm/ (Sodium Chloride) 100 mls @ 100 mls/hr IVPB Q24H [facility] Last Admin: 07/06/16 17:50 Dose: 100 mls/hr Nicotine (Nicoderm Cq) 1 patch TD DAILY [facility] Last Admin: 07/07/16 09:31 Dose: 1 patch Oxycodone HCl (Oxycodone Immediate Release Tab) 5 mg PO Q6 PRN PRN Reason: Pain, moderate (4-7) Last Admin: 07/07/16 08:01 Dose: 5 mg Saccharomyces Boulardii (Florastor) 250 mg PO BID [facility] Last Admin: 07/07/16 09:32 Dose: 250 mg - Labs Labs: 07/07/16 06:15 07/07/16 06:15 PT 12.9 SECONDS (9.7-12.2) H 07/06/16 09:26 INR 1.1 07/06/16 09:26 APTT 32 SECONDS (21-34) 07/01/16 14:22 - Constitutional Appears: Non-toxic, No Acute Distress, Cachectic - Head Exam Head Exam: NORMAL INSPECTION, NORMOCEPHALIC - Eye Exam Eye Exam: Normal appearance, PERRL Pupil Exam: NORMAL ACCOMODATION - ENT Exam ENT Exam: Mucous Membranes Moist - Neck Exam Neck Exam: Normal Inspection - Respiratory Exam Respiratory Exam: Decreased Breath Sounds, Clear to Ausculation Bilateral, NORMAL BREATHING PATTERN. absent: Accessory Muscle Use, Rales, Rhonchi, Wheezes Additional comments: Heimlich valve in place attached to chest tube in right chest. - Cardiovascular Exam Cardiovascular Exam: REGULAR RHYTHM, RRR, +S1, +S2. absent: Gallop, JVD - GI/Abdominal Exam GI & Abdominal Exam: Soft, Normal Bowel Sounds. absent: Tenderness - Extremities Exam Extremities Exam: Normal Inspection - Neurological Exam Neurological Exam: Alert, Oriented x3 - Psychiatric Exam Psychiatric exam: Anxious, Normal Affect - Skin Skin Exam: Intact, Normal Color, Warm Assessment and Plan - Assessment and Plan (Free Text) Assessment: Spontaneous right pneumothorax Plan: Patient is stable for discharge with heimlich valve. She will follow up with Dr. Lira in her outpatient clinic in [place]. Given script for outpatient CT scan to re-evaluate pneumothorax in 1 weeks time. Pain medication as per primary team. Clinically appears on CXR and exam to have COPD. Instructed to follow up with pulmonology in outpatient office for more formal testing and pneumothorax. Pt is encouraged to quit cigarettes and was counselled on smoking cessation.
--- NOTE | 2016-07-07 12:08 | CP.PCM.PN ---
Subjective - Date & Time of Evaluation Date of Evaluation: 07/07/16 Time of Evaluation: 10:50 - Subjective Subjective: Medical Attending Note: Follow-up: Pneumothorax, Urinary Tract Infection, Anxiety, Migraine headache, Nictone abuse, and hx of cervical cancer, and secondary lung cancer Patient seen, examined with family at bedside. Patient sitting up right. Patient denies shortness of breathe, denies cough. Reports mild pain requesting for oxydone. Patient reports she has had a bowel movement and denies dysuria and denies hematuria. Per discussion with nursing, per surgery stable for discharge recommend follow- up with Dr. Lira within one week. Will need to setup with case management regarding wound care associated Hemliach valve prior to discharge today. Discussed with Dr. Underwood's office, patient has been setup for follow-up appointment on July 13, 2016 at 3:15PM. Objective - Vital Signs/Intake and Output Vital Signs (last 24 hours): Temp Pulse Resp BP Pulse Ox 97 F L 81 23 96/59 L 97 07/07/16 08:00 07/07/16 10:00 07/07/16 10:00 07/07/16 09:46 07/07/16 10:00 Intake and Output: 07/07/16 07/07/16 06:59 18:59 Intake Total 40 250 Output Total 1300 Balance -1260 250 - Medications Medications: Current Medications Alprazolam (Xanax) 0.5 mg PO HS PRN PRN Reason: Anxiety Docusate Sodium (Colace) 100 mg PO BID [facility] Last Admin: 07/07/16 09:32 Dose: Not Given Dronabinol (Marinol) 2.5 mg PO BID [facility] Last Admin: 07/07/16 09:32 Dose: 2.5 mg Famotidine (Pepcid) 20 mg PO BID [facility] Last Admin: 07/07/16 09:32 Dose: 20 mg Ceftriaxone Sodium 1 gm/ (Sodium Chloride) 100 mls @ 100 mls/hr IVPB Q24H [facility] Last Admin: 07/06/16 17:50 Dose: 100 mls/hr Nicotine (Nicoderm Cq) 1 patch TD DAILY [facility] Last Admin: 07/07/16 09:31 Dose: 1 patch Oxycodone HCl (Oxycodone Immediate Release Tab) 5 mg PO Q6 PRN PRN Reason: Pain, moderate (4-7) Last Admin: 07/07/16 08:01 Dose: 5 mg Saccharomyces Boulardii (Florastor) 250 mg PO BID [facility] Last Admin: 07/07/16 09:32 Dose: 250 mg - Labs Labs: 07/07/16 06:15 07/07/16 06:15 PT 12.9 SECONDS (9.7-12.2) H 07/06/16 09:26 INR 1.1 07/06/16 09:26 APTT 32 SECONDS (21-34) 07/01/16 14:22 - Constitutional Appears: Non-toxic, No Acute Distress - Head Exam Head Exam: NORMAL INSPECTION - Eye Exam Eye Exam: EOMI - ENT Exam ENT Exam: Mucous Membranes Moist - Respiratory Exam Respiratory Exam: NORMAL BREATHING PATTERN. absent: Decreased Breath Sounds, Respiratory Distress - Cardiovascular Exam Cardiovascular Exam: REGULAR RHYTHM, +S1, +S2 - GI/Abdominal Exam GI & Abdominal Exam: Soft, Normal Bowel Sounds. absent: Distended, Guarding, Rigid, Tenderness, Rebound - Extremities Exam Extremities Exam: absent: Pedal Edema, Tenderness - Back Exam Back Exam: absent: paraspinal tenderness, rash noted - Neurological Exam Neurological Exam: Alert, Awake, Oriented x3 - Psychiatric Exam Psychiatric exam: Normal Affect, Normal Mood - Skin Skin Exam: Dry, Normal Color, Warm Assessment and Plan (1) Pneumothorax Status: Acute (2) Urinary tract infection Status: Acute (3) Anxiety Status: Chronic (4) Migraine Status: Chronic (5) Nicotine abuse Status: Chronic (6) Cervical cancer Status: Chronic (7) Prophylactic measure Status: Acute - Assessment and Plan (Free Text) Assessment: Pneumothorax * CT Chest (07/03/16): re-demonstrated is in situ right sided chest tube, small residual right sided pneumothorax markedly decreased from prior chest radiographs however only slight decreased from prior chest CT scan. Multiple varying sized rounded solid and cavitary lesions seen scattered throughout the upper and lower lobes bilaterally. Rule out metastatic disease versus infectious ; small calcficied mediastinal lymph nodes small calcification with splenc parenchyma which are consistent with prior exposure to granulomatous disease process * CT Chest (07/06/16): very small right pneumothorax unchanged from prior examination. right chest tube noted. Very small right pleural effusion. Multiple pulmonary masses, many with cavitation. subcutanous emphysema over right laterla chest wall, free air seen beneath the right hemiadiapragm. Left hydronephrosis * Consult CT surgery (Dr. Palmer) on the case help appreciated * Echocardiogram (07/04/16): left ventricular ejection fraction is within the normal range. No regional wall motion abnormalites noted. left ventricular diastolic function is normal. mild tricupsid regurgitation. * Chest xray (07/07/16): no significant interval change * per discussion with surgery, patient stable for surgery; will setup with case management regarding wound care for the patient * pain prn: Oxycodone 5mg PO Q 6 hour PRN (); Patient was taking perocoet prior for arthritis associated with right shoulder. Urinary Tract Infection * Florastor 250mg PO bid * Rocephin 1 gram IV daily (active since 07/01/16) * Urine culture to be available tomorro 07/08/16; spoke with lab * Will given Bactrim 1 DS tab PO bid for 5 days start tomorrow; and follow-up urine culture for the patient Anxiety * Xanax 0.5mg PO PRN * History of Migraine headaches * History of * Fioricet 2 tab PO Q 6 hour PRN Nicotine abuse * Nicotine patch transdermal daily Cervical cancer s/p chemo/radiation with mets to Lungs currently on chemo- held x 1 mo due to dental work' * heme[facility]onc at [facility] * Goes for chemo once a month Prophylactic measure * pepcid 20mg PO bid * FLorastor 250mg PO bid * Morphine 4mg IV 4 PRN pain
[2016-07-07 12:54] VITALS: O2SAT 98
[2016-07-07 12:57] VITALS: TEMP 98.6
[2016-07-07 14:10] VITALS: PULSE 79; RESP 18
== END 2016-07-07 14:11 | disposition home or self-care (01) | DRG 94 ==
LOC: C.ER 12:19 → C.9OBSV 13:42 → OBSVTOIN 14:28 → C.9E 14:29 → C.5T 16:23 → C.9E 18:21 → C.9I 18:26
PROVIDERS: ADMIT Hospitalist; ATTEND Hospitalist
PROC: 0W9900Z Drainage of Right Pleural Cavity with Drainage Device, Open Approach (ICD-10-PCS; principal; 2016-07-01)
DX: J93.83 Other pneumothorax (principal); C78.00 Secondary malignant neoplasm of unspecified lung; C79.51 Secondary malignant neoplasm of bone; N39.0 Urinary tract infection, site not specified; T79.7XXA Traumatic subcutaneous emphysema, initial encounter; B96.20 Unspecified Escherichia coli [E. coli] as the cause of diseases classified elsewhere; C53.9 Malignant neoplasm of cervix uteri, unspecified; F17.210 Nicotine dependence, cigarettes, uncomplicated; F41.9 Anxiety disorder, unspecified; G43.909 Migraine, unspecified, not intractable, without status migrainosus; F32.9 Major depressive disorder, single episode, unspecified